=== PATIENT | female | born 1955 | race Caucasian/White ===

== ENCOUNTER 2024-05-15 18:42 | Emergency (ER) | payer MEDICARE, OTHER, SELFPAY ==
[2024-05-15 18:43] VITALS: BP 132/63; PULSE 79; RESP 16; TEMP 36.4; O2SAT 98; BMI 20.6
--- NOTE | 2024-05-15 19:17 | EDS_ITS ---
HPI HPI - Fall History of Present Illness Chief Complaint: Fall Informant: patient Occured/Mechanism Occurred: Today Mechanism/Context: Yes trip Usually ambulates: Without assistance Pain/Injury Pain Location: face (Nasal fracture.) Current Severity: Mild Maximum Severity: Mild Associated Symptoms Associated Symptoms: Negative for Parasthesias, Weakness, Loss of function, Inability to ambulate, Loss of consciousness or Amnesia Narrative Narrative: 68-year-old female recently moved to the area. Tripped on her steps there is only 2 steps. She fell when she fell she hit her nose that started bleeding from both sides. This just occurred. No LOC. No blood thinners. No neck pain. No severe headache. No vomiting. Denies other complaints. Prior similar symptoms: No Recent Illness/Hospitalization: No PFSH PFSH Medical History Hypertension Allergy/AdvReac Type Severity Reaction Status Date / Time No Known Allergies Allergy Verified 05/15/24 18:43 Social History Smoking Status: Never smoker ROS ROS ED ROS Narrative Denies recent illness. Constitutional Constitutional ED: Denies chills or fever(s) Eyes Eyes: Denies blurry vision ENT ENT ED: Denies ear pain Cardiovascular Cardiovascular: Denies chest pain Respiratory/Chest Respiratory/Chest: Denies cough or dyspnea Gastrointestinal Gastrointestinal: Denies abdominal pain Genitourinary Genitourinary ED: Denies dysuria or hematuria Musculoskeletal Musculoskeletal: Denies arthralgias or back pain Integumentary Denies abscess Neurologic Neurologic: Denies headache(s) Psychiatric Psychiatric: Denies anxiety or depression Endocrine Endocrinology: Denies polydipsia Hematologic/Lymphatic Hematologic/Lymphatic: Denies easy bleeding Allergic/Immunologic Allergic/Immunologic ED: Denies mouth swelling EXAM Physical Exam Narrative Exam Narrative: Well-appearing 68-year-old female. Vital signs stable afebrile. Accompanied by friend. H EENT exam pupils round reactive light. Scalp nontender no hematoma. 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 Blood in both naris. No septal hematoma. Nose is straight but swollen. Tender mid bridge. Superficial abrasion. Dentition intact. Jaw nontender. No malocclusion. Neck and trachea nontender. Back and spine nontender. No trauma or bruising. Lungs clear to auscultation bilaterally. Heart regular rhythm ra te about 80 no murmur. Chest wall ribs nontender. Abdomen soft nontender. Pelvic girdle intact. Moving all 4 extremities. Normal padded box sewer strength. Normal range of motion upper and lower extremities. Hips nontender. No shortening or rotation. Normal dorsi plantarflexion. Neurologically she is awake and alert. Answering questions following commands. GCS of 15. She knows where she is at, month and year. Acting appropriately. Const Vital Signs: 05/15/24 18:43 05/15/24 19:12 Temperature 97.5 F L Temperature Source Temporal Pulse Rate 79 Respiratory Rate 16 Respiratory Effort Normal Respiratory Depth Normal Respiratory Pattern Normal Blood Pressure 132/63 H Blood Pressure Mean 86 Pulse Ox 98 Positive well nourished and well developed; Negative for obese, cachectic, contractures or unkempt General Appearance ED: well developed and NAD; Negative for unkempt, cachectic or contractures Nutritional Appearance: Negative for cachectic or obese HEENT Reports normocephalic HEENT Narrative: Nasal fracture contusion. Mid bridge. Tender. Swollen no significant deformity. Blood in both naris. No active bleeding. No septal hematoma. trauma, contusion and tenderness; Negative for atraumatic Eyes PERRL and EOMs intact bilaterally General Eye ED: Negative for pale conjunctiva or scleral icterus Neck full ROM, no lymphadenopathy and supple General: Negative for tenderness Chest Wall inspection of chest normal and palpation of chest normal Resp normal respiratory effort, no retractions and clear to auscultation bilaterally Auscultation: Negative for rales, rhonchi, wheezes or diminished lung sounds Cardio regular rate, regular rhythm, S1 normal heart sound, S2 normal heart sound and no murmurs Rate: Negative for bradycardia or tachycardic Rhythm: Negative for abnormal rhythm Bruits: Negative for other GI non-tender, non-distended and no masses Inspection: Negative for abdominal distention Auscultation: normoactive bowel sounds Palpation: soft; Negative for guarding or rebound tenderness present Back/Spine no CVA tenderness General Back: Negative for CVA tenderness Cervical Spine: Negative for cervical spine tenderness Thoracic Spine / Upper Back: Negative for ROM limited or pain with ROM Lumbar Spine / Lower Back: Negative for lumbar spinal tenderness Neuro oriented x3, CN's II-XII intact bilaterally, moves all extremities and no focal motor deficits Roxanne Coma Scale: document GCS findings Spontaneous Obeys Commands Oriented 15 Sensorium / Orientation: alert, oriented to person, oriented to place and oriented to time; Negative for orientation impaired, confused or lethargic Motor Exam: strength 5/5 throughout Psych mental status grossly normal and thought process normal Appearance: Negative for unkempt Skin Lesions: no lesions Rashes: no rashes Trauma: abrasion; Negative for laceration MDM MDM MDM Narrative Medical decision making narrative: 68-year-old female fell at home. No LOC. Probably broke her nose. Does not need imaging of her head or facial bones. Discharged home with head injury instructions and nosebleed instructions. History & Record Review Discussion w/independent historian: Patient Additional record(s) reviewed:: No prior records Discharge Plan Triage Chief Complaint: Fall ED Provider: Elijah Damico Dx/Rx/DC Orders Clinical Impression: Fall, Closed fracture nasal bone Instructions: ED Head Injury (Adult), ED Nose Fracture, No X-Ray Primary Care Provider: NOT,DEFINED Referrals: Will Lopez MD [Med Staff - Allergist/Immunologist Physician] - As Needed NOT,DEFINED [Primary Care Provider] - Activity Restrictions/Additional Instructions: Ice to your nose and face. 20 to 30 minutes at a time 4-5 times a day for the next 3 days. Tylenol and ibuprofen for pain. If your nose starts bleeding hold direct pressure to the end your nose for 20 to 30 minutes. If unable to stop use cotton balls soaked with either Afrin or Tai- Synephrine nasal spray put them up to your nose that should get the bleeding to stop. If you cannot just return to the emergency department. If you develop a severe headache, intractable vomiting or not acting right return and we will get a CAT scan. You do not need one at this time. Print Language: Moz[place]ican Disposition Disposition: Home, Self Care
== END 2024-05-15 19:37 | disposition home or self-care (01) ==
PROVIDERS: Emergency Provider Emergency Medicine; Visit Provider Emergency Medicine
DX: S02.2XXA Fracture of nasal bones, initial encounter for closed fracture (principal); W10.9XXA Fall (on) (from) unspecified stairs and steps, initial encounter
CPT/HCPCS: 99282

== ENCOUNTER → 2025-04-07 | Outpatient (CLI) | payer MEDICARE, OTHER, SELFPAY ==
--- NOTE | 2025-04-07 15:24 | BI_ITS ---
EXAM: SCRN MAMM (CAD)W/SARA BILAT DATE: 04/07/2025 CLINICAL HISTORY: F, Age 69 y/o , ANNUAL SCREENING TECHNIQUE: Procedure Code: [id number] Modality: MG Procedure: SCRN MAMM (CAD)W/SARA BILAT COMPARISON: Prior exam(s) were compared FINDINGS: TISSUE DENSITY: The breasts are heterogeneously dense, which may obscure small masses. Bilateral Breast Mammographic Findings: Left breast: There is a spiculated mass with associated calcifications in the upper inner left breast posterior depth (cc frame 44 and MLO frame 45). Recommend additional imaging with diagnostic left breast mammogram spot compression views, full field true lateral view and targeted ultrasound scanning the upper inner left breast. There are grouped calcifications in the lower outer left breast posterior depth. Recommend additional imaging with diagnostic left breast mammogram magnification views. Right breast: No significant masses, calcifications or other abnormalities are identified. BI/SCRN MAMM (CAD)W/SARA BILAT IMPRESSION: Additional imaging is recommended of the left breast as described above. No mammographic evidence of malignancy in the right breast. OVERALL FINAL ASSESSMENT BI-RADS 0: INCOMPLETE - NEED ADDITIONAL IMAGING EVALUATION. RECOMMENDATION: Additional Views obtained/call backs Additional Recommendation none A letter with findings and recommendations will be mailed to the patient. Reading Location: [id number]
--- NOTE | 2025-04-07 15:25 | BD_ITS ---
PROCEDURE: DEXA BONE DENSITY STUDY 04/07/2025 REASON FOR EXAM: F, age 69 y/o . Postmenopausal. TECHNIQUE: Procedure Code: BDDBD Modality: DX Procedure: DEXA BONE DENSITY STUDY COMPARISON: None FINDINGS: BMD and T-SCORES Lumbar spine: 0.998 g/cm2, T-score -0.4 Levels: L1 through L4 Left femoral neck: 0.610 g/cm2, T-score -2.2 Femoral neck comparison data not recommended for monitoring change. Left total hip: 0.620 g/cm2, T-score -2.6 The World Health Organization has defined the following categories based on bone density: Normal bone density: T-score equal to or greater than -1.0 Osteopenia: T-score between -1.0 and -2.5 Osteoporosis: T-score equal to or less than -2.5 FRAX (or Comparable) Fracture Risk Assessment: 10 Year Probability of Fracture: Major Osteoporotic Fracture: 18% Hip Fracture: 4.2% (Note: FRAX is not to be reported in setting of normal range bone density, osteoporosis on DEXA, known history of osteoporosis, prior osteoporotic hip or vertebral fracture, or for any patient undergoing pharmacological treatment for bone loss.) The National Osteoporosis Foundation (NOF) recommends pharmacological treatment for patients with a FRAX 10-year risk of 3% or higher for a hip fracture, or 20% or higher for a major osteoporotic fracture, to prevent osteoporosis and reduce fracture risk. The patient does meet the pharmacological treatment recommendations for prevention of osteoporosis. BD/Dexa Bone Density Study IMPRESSION: OSTEOPOROSIS. Recommend follow-up as clinically warranted. Reading Location: [place] [id number]
--- OUTSIDE RECORDS SUMMARY | 2025-04-07 15:44 | XMS RPT_ITS | CCD ---
Author Organization [facility] Care Team Providers Care Wire Rigger Name Role Phone Lavern Malcolm Unavailable PROVIDER, UNKNOWN Referring Unavailable PROVIDER, UNKNOWN Referring Unavailable Elijah Damico Attending Unavailable Care Physician, No Primary Primary Care Unava ilable EROSSY, MARILY Referring Unavailable EROSSY, MARILY Referring Unavailable EROSSY, MARILY Attending Unavailable FRANK, GREGG Referring Unavailable EROSSY, MARILY Attending Unavailable EROSSY, MARILY Attending Unavailable FRANK, GREGG Referring Unavailable Medications Current Medications Medication Drug Class(es) Dates Sig (Normalized) Sig (Original) atorvastatin 20 mg oral tablet (11 sources) HMG-CoA Reductase Inhibitor Start: 03-23-2023 take 1 tablet by mouth once daily atorvastatin (LIPITOR) 20 mg tablet Take 1 tablet by mouth once daily. 03/23/2023 Active 24 hr buPROPion hydrochloride 150 mg extended release oral tablet (11 sources) Aminoketone take 1 tablet by mouth once daily buPROPion XL (WELLBUTRIN XL) 150 mg 24 hr tablet Take 150 mg by mouth once daily. Active cholecalciferol 0.125 mg oral tablet (11 sources) Vitamin D take 1 tablet by mouth once daily cholecalciferol (VITAMIN D3) 5,000 unit tab Take 1 tablet by mouth once daily. Active ibuprofen 200 mg oral tablet (11 sources) Nonsteroidal Anti-inflammatory Drug Start: 12-21-2022 ibuprofen (MOTRIN) 200 mg tablet Take 200 mg by mouth. 12/21/2022 Active Problems Active Problems Problem Classification Problem Date Documented Date Episodic/Chronic Fracture of neck of femur (hip) (3 sources) Stress fracture of shaft of right femur; Translations: [Stress fracture, right femur, initial encounter for fracture] Onset: 05-25-2024 05-13-2024 Episodic Osteoarthritis (2 sources) Osteoarthritis of right hip joint; Translations: [Unilateral primary osteoarthritis, right hip] Onset: 09-28-2024 09-27-2024 Chronic Other connective tissue disease (5 sources) History of repair of hip joint; Translations: [Presence of right artificial hip joint] 05-11-2024 Chronic Other connective tissue disease (1 source) Presence of right artificial hip joint; Translations: [Status post right hip replacement] Onset: 05-12-2024 Chronic Other non-traumatic joint disorders (4 sources) Hip pain; Translations: [Pain in right hip] 05-11-2024 Episodic Skull and face fractures (1 source) Fracture of nasal bones, initial encounter for closed fracture; Translations: [Fracture of nasal bones, initial encounter for closed fracture] Onset: 06-13-2024 Episodic Past or Other Problems Problem Classification Problem Date Documented Da te Episodic/Chronic Complication of device; implant or graft (2 sources) Mechanical loosening of internal right hip prosthetic joint, initial encounter; Translations: [Mechanical loosening of prosthetic joint] Onset: 06-01-2024 06-01-2024 Episodic Other non-traumatic joint disorders (1 source) Pain in right hip; Translations: [Pain of right hip] Onset: 05-11-2024 Episodic Unclassified (3 sources) History of repair of hip joint 09-28-2024 Results Test Name Value Interpretation Reference Range Facil meronsuellen Sandra 09-28-2024 MAGO Office Visit (JEAN CLAUDE ) LIZBET PADILLA ([id number]) 1955 F Date Time Provider Department 09/28/24 3:00 PM MARILY BE During your visit today, we recorded the following information about you: Marily Be MD 09/28/2024 3:46 PM Signed Established Patient Ortho Hip Consult Note ASSESSMENT AND PLAN: Impression: 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 Bone scan + at tip of stem and proximal metaphysis. Patient returns today for follow up. She is significantly improved after about 2 months of protected weight bearing and aquatic therapy. Now walking with no assist device at all but brought cane just for protection today. Main to midthigh here and there and over troch. Major improvement from last time I saw her. Reviewed XR's which show no major change in implants position. Benign exam today. Well healed incision. Mild TTP to troch and mid thigh. NVI distally. Reviewed XR with her and discussed returning to protected wb if this flares up again. Happy with her progress. She will see me again with any issues The patient has been ordered: No orders placed today. CONSULTS: Patient does not require consults for optimization at this time. There is no problem list on file for this patient. SUBJECTIVE CHIEF COMPLAINT: Hip Pain HPI: Lizbet Padilla is a 68 year old patient here for evaluation and management of Right hip pain. Patient has had progressive problems with the hip(s) constantly over the past 5 month(s) interfering with activities which include walking 2 blocks, gardening, rising from a sitting position, standing for prolonged periods of time, getting in and out of a car, climbing stairs, and safety-increased risk for fall. The problem began limiting activities 1-6 months ago. States she had a fall in her garage since her last visit on 05/11/24, and that she is using a cane as an assistive device. Currently the pain in the joint is rated at 5 out of 10 with moderate activity. The pain is constant and is located in the right outer aspect of the hip. The pain is described as aching, dull, and throbbing. Relieving factors include ambulatory device, rest, ice, over the counter medication, and repositioning. There is no specific incident that brought about this pain. Patient has no additional complaints. Total Joint Athroplasty - Risk Calculator PREVIOUS TREATMENTS: Medical: OTC NSAIDS for 3 Months or Greater (Ibuprofen) Physical Therapy: Use of Ambulatory Aid and Activities Modified Previous Surgery: RTHA (07/2023) Risk Factors for Total Joint Arthroplasty (TJA) Obesity normal High: BMI > 40 Moderate: BMI 30-40 Normal: BMI < 30 Diabetes normal High: A1C > 8 Moderate: A1C 7-8 Normal: A1C < 7 Smoking normal High: Current smoker Normal: Non smoker Anemia normal High: Hgb < 11.5 (women) N/A: Hgb >= 11.5 (women) Nutritional Status normal High: Alb<3.4, or prealb<15, or serum transferrin<200, or total lymphocyte count<1500 Normal: normal labs COPD normal High: dx of COPD Normal: no dx of COPD MRSA normal High: dx of MRSA or positive lab test Normal: no MRSA CKD normal High: eGFR<60 Moderate: eGFR 60-89 Normal: eGFR>90 Hx of DVT / PE normal High: dx of DVT / PE Normal: no dx of DVT / PE Narcotics Use normal High:NarxCare >=300 Moderate: 100-299 Normal: 0-99 KRIS normal High: dx of KRIS N/A: no dx of KRIS Coagulation normal High:PT Sec>13, or PT INR>1.3, or APTT>32.4, or Plt ct<150k Moderate: on anticoag but none of the above Normal: none Other Risk Factors None PHYSICAL EXAM There were no vitals taken for this visit. All other systems deferred. GENERAL: Appears healthy, well-nourished, no deformities. HABITUS: Normal GAIT: Ambulatory Aid: a cane HIP EXAM: Right: :Large anterior DA incision up to ASIS well healed TTP mid thigh ROM: Extension: Normal Flexion: 110 degrees Internal Rotation: 30 degrees External Rotation: 30 degrees Abduction: 40 degrees Adduction: 30 degrees Strength: Abduction 4/5 and Flexion 5/5 Palpation: TTP lateral troch Log roll: non-painful. Straight leg raise: + groin pain Neurovascular Status: Sensation Intact and Moves foot and ankle up AND down DATA: Diagnostic tests reviewed for today's visit: Right hip X-Ray: R hip no change in XR from April with standing film Bone Scan + at Tip of stem, proximal metaphysis also lights up. SIGNATURE: Marily Be MD PATIENT NAME: Lizbet Padilla DATE: June 01, 2024 TIME: 11:11 AM Marily Be MD 10/11/2024 2:47 PM Signed Addended by: MARILY BE on: 10/11/2024 02:47 PM Modules accepted: Level of Service Allergies As of Date: 09/28/2024 (No Known Allergies) Date Reviewed: 09/28/2024 Reviewed (more content not included)... Normal [facility] XR HIP 3V PELV+ AP/LAT RTon 09-28-2024 XR HIP 3V PELV+ AP/LAT RT * * *Final Report* * * DATE OF EXAM: Sep 28 2024 3:07PM AFR 5352 - XR HIP 3V PELV+ AP/LAT RT / PROCEDURE REASON: Status post right hip replacement * * * * Physician Interpretation * * * * PELVIS AND RIGHT HIP X-RAYS HISTORY: RIGHT HIP PAIN. Status post right hip replacement TECHNIQUE: AP pelvis and 2 view right hip (3 total films) COMPARISON: 06/01/2024 RESULT: Postsurgical changes right total hip arthroplasty. Satisfactory anatomic alignment. No findings of hardware failure or loosening. Left hip is unremarkable. Degenerative change noted L5-S1. 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 Status post right hip replacement TECHNIQUE: AP pelvis and 2 view right hip (3 total films) COMPARISON: 06/01/2024 RESULT: Postsurgical changes right total hip arthroplasty. Satisfactory anatomic alignment. No findings of hardware failure or loosening. Left hip is unremarkable. Degenerative change noted L5-S1. DIVISION OF RADIOLOGY Provider, [facility] Lamar figueredo [place] - 09/28/2024 * * *Final Report* * * DATE OF EXAM: Sep 28 2024 3:07PM AFR 5352 - XR HIP 3V PELV+ AP/LAT RT / PROCEDURE REASON: Status post right hip replacement * * * * Physician Interpretation * * * * PELVIS AND RIGHT HIP X-RAYS HISTORY: RIGHT HIP PAIN. Status post right hip replacement TECHNIQUE: AP pelvis and 2 view right hip (3 total films) COMPARISON: 06/01/2024 RESULT: Postsurgical changes right total hip arthroplasty. Satisfactory anatomic alignment. No findings of hardware failure or loosening. Left hip is unremarkable. Degenerative change noted L5-S1. IMPRESSION IMPRESSION: Right total hip arthroplasty without complication Supervisor [employer]: [facility] Transcribe Date/Time: Sep 28 2024 4:54P Dictated by : FRED MONREAL MD This examination was interpreted and the report reviewed and electronically signed by: FRED MONREAL MD on Sep 28 2024 4:54PM [facility] Radiology Study observation (narrative) [facility] XR Pelvis and Hip - right AP and Lateral frogOrdered By: Cc Provider on 09-28-2024 [facility] Tre 06-11-2024 CNPN Telephone (ORQ) LIZBET PADILLA ([id number]) 1955 F Date Time Provider Department 06/11/24 MARILY BE ORAbbey During your visit today, we recorded the following information about you: Connie Coughlin 06/11/2024 10:06 AM Signed HANDICAP RX PLACED IN OUT GOING MAIL. ALSO SENT MESSAGE WITH ATTACHED RX VIA MY CHART. Allergies As of Date: 06/11/2024 (No Known Allergies) Date Reviewed: 06/01/2024 Reviewed by: Franca Guan MA - Fully Assessed Reason for Visit: HANDICAP RX MAILED [Other] Prescriptions as of 06/11/2024 - ibuprofen (MOTRIN) 200 mg tablet Take 200 mg by mouth. - atorvastatin (LIPITOR) 20 mg tablet Take 1 tablet by mouth once daily. - cholecalciferol (VITAMIN D3) 5,000 unit tab Take 1 tablet by mouth once daily. - buPROPion XL (WELLBUTRIN XL) 150 mg 24 hr tablet Take 150 mg by mouth once daily. 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 Bone scan + at tip of stem and proximal metaphysis. Discussed her imaging and physical exam at length today. Went over XR and bone scan. She understands her issue and the difficult nature of treating it. Discussed that her underlying osteoporosis does contribute to this and getting on a good calcium and vitamin D regimen may help. She states that she has had bisphosphonate therapy in the past, with Prolia however she is not on this currently. Did advise her to discuss with her PCP or a metabolic bone specialist to see if his bisphosphonate therapy is a good option for her. She is only approximately 9 months out from her surgery at this point and any revision I would want to wait at least until around 2 years out to let the bone remodel to its fullest extent. Advised protecting her weightbearing with a walker or at least a cane is much as possible while we optimize her from an osteoporosis standpoint. The patient has been ordered: No orders placed today. CONSULTS: Patient does not require consults for optimization at this time. There is no problem list on file for this patient. SUBJECTIVE CHIEF COMPLAINT: Hip Pain HPI: Lizbet Padilla is a 68 year old patient here for evaluation and management of Right hip pain. Patient has had progressive problems with the hip(s) constantly over the past 5 month(s) interfering with activities which include walking 2 blocks, gardening, rising from a sitting position, standing for prolonged periods of time, getting in and out of a car, climbing stairs, and safety-increased risk for fall. The problem began limiting activities 1-6 months ago. States she had a fall in her garage since her last visit on 05/11/24, and that she is using a cane as an assistive device. Currently the pain in the joint is rated at 5 out of 10 with moderate activity. The pain is constant and is located in the right outer aspect of the hip. The pain is described as aching, dull, and throbbing. Relieving factors include ambulatory device, rest, ice, over the counter medication, and repositioning. There is no specific incident that brought about this pain. Patient has no additional complaints. Total Joint Athroplasty - Risk Calculator PREVIOUS TREATMENTS: Medical: OTC NSAIDS for 3 Months or Greater (Ibuprofen) Physical Therapy: Use of Ambulatory Aid and Activities Modified Previous Surgery: RTHA (07/2023) Risk Factors for Total Joint Arthroplasty (TJA) Obesity normal High: BMI > 40 Moderate: BMI 30-40 Normal: BMI < 30 Diabetes normal High: A1C > 8 Moderate: A1C 7-8 Normal: A1C < 7 Smoking normal High: Current smoker Normal: Non smoker Anemia normal High: Hgb < 11.5 (women) N/A: Hgb >= 11.5 (women) Nutritional Status normal High: Alb<3.4, or prealb<15, or serum transferrin<200, or total lymphocyte count<1500 Normal: normal labs COPD normal High: dx of COPD Normal: no dx of COPD MRSA normal High: dx of MRSA or positive lab test Normal: no MRSA CKD normal High: eGFR<60 Moderate: eGFR 60-89 Normal: eGFR>90 Hx of DVT / PE normal High: dx of DVT / PE Normal: no dx of DVT / PE Narcotics Use normal High:NarxCare >=300 Moderate: 100-299 Normal: 0-99 KRIS normal High: dx of KRIS N/A: no dx of KRIS Coagulation normal High:PT Sec>13, or PT INR>1.3, or APTT>32.4, or Plt ct<150k Moderate: on anticoag but none of the above Normal: none Other Risk Factors None PHYSICAL EXAM There were no vitals taken for this visit. All other systems deferred. GENERAL: Appears healthy, well-nourished, no deformities. HABITUS: Normal GAIT: Ambulatory Aid: a cane HIP EXAM: Right: :Large anterior DA incision up to ASIS well healed TTP mid thigh ROM: Extension: Normal Flexion: 110 degrees Internal Rotation: 30 degrees External Rotation: 30 degrees Abduction: 40 degrees Adduction: 30 degrees Strength: Abduction 4/5 and Flexion 5/5 Palpation: TTP lateral troch Log roll: non-painful. Straight leg raise: + groin pain Neurovascular Status: Sensation Intact and Moves foot and ankle up AND down DATA: Diagnostic tests reviewed for today's visit: Right hip X-Ray: R hip no change in XR from April with standing film Bone Scan + at Tip of stem, proximal metaphysis also lights up. SIGNATURE: Marily Be MD PATIENT NAME: Lizbet Padilla DATE: June 01, 2024 MRN: [id number] (more content not included)... 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 Additional history provided by the performing technologist (if any): --> RIGHT HIP PAIN- LOOSENING PROSTHETIC TECHNIQUE: XR HIP 3V PELV+ AP/LAT RT COMPARISON: 05/11/2024 RESULT: Status post right total hip arthroplasty. Unchanged appearance. Small teardrop shaped region of endosteal scalloping along the lateral aspect of the proximal femoral shaft may be related to prior implant. There is also an empty screw track in the proximal femoral shaft. Relative bone deficiency of the greater trochanter and mild deformity of the lesser trochanter compatible with remote trauma. Left hip and SI joints are normal. Calcified uterine fibroids. No other significant abnormality. 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 [employer] Sanitation: [facility] Transcribe Date/Time: Jun 01 2024 10:35A Dictated by : ALEXUS DUMONT MD This examination was interpreted and the report reviewed and electronically signed by: ALEXUS DUMONT MD on Jun 01 2024 10:36AM EST [id number] Normal [facility] XR Pelvis and Hip - right AP and Lateral frogon 06-01-2024 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 [employer]ery Sanitation: [facility] Transcribe Date/Time: Jun 01 2024 10:35A Dictated by : ALEXUS DUMONT MD This examination was interpreted and the report reviewed and electronically signed by: ALEXUS DUMONT MD on Jun 01 2024 10:36AM EST DIVISION OF RADIOLOGY * * *Final Report* * * DATE OF EXAM: Jun 01 2024 10:29AM AFR 5352 - XR HIP 3V PELV+ AP/LAT RT / PROCEDURE REASON: 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 Additional history provided by the performing technologist (if any): --> RIGHT HIP PAIN- LOOSENING PROSTHETIC TECHNIQUE: XR HIP 3V PELV+ AP/LAT RT COMPARISON: 05/11/2024 RESULT: Status post right total hip arthroplasty. Unchanged appearance. Small teardrop shaped region of endosteal scalloping along the lateral aspect of the proximal femoral shaft may be related to prior implant. There is also an empty screw track in the proximal femoral shaft. Relative bone deficiency of the greater trochanter and mild deformity of the lesser trochanter compatible with remote trauma. Left hip and SI joints are normal. Calcified uterine fibroids. No other significant abnormality. 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 Additional history provided by the performing technologist (if any): --> RIGHT HIP PAIN- LOOSENING PROSTHETIC TECHNIQUE: XR HIP 3V PELV+ AP/LAT RT COMPARISON: 05/11/2024 RESULT: Status post right total hip arthroplasty. Unchanged appearance. Small teardrop shaped region of endosteal scalloping along the lateral aspect of the proximal femoral shaft may be related to prior implant. There is also an empty screw track in the proximal femoral shaft. Relative bone deficiency of the greater trochanter and mild deformity of the lesser trochanter compatible with remote trauma. Left hip and SI joints are normal. Calcified uterine fibroids. No other significant abnormality. IMPRESSION 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 [employer]: [facility] Transcribe Date/Time: Jun 01 2024 10:35A Dictated by : ALEXUS DUMONT MD This examination was interpreted and the report reviewed and electronically signed by: ALEXUS DUMONT MD on Jun 01 2024 10:36AM [facility] Radiology Study observation (narrative) [facility] XR Pelvis and Hip - right AP and Lateral frogOrdered By: [facility] Provider on 06-01-2024 [facility] NM BONE 3 PHASEon 05-25-2024 NM BONE 3 PHASE * * *Final Report* * * DATE OF EXAM: May 25 2024 3:54PM CHAU 0009 - NM BONE 3 PHASE / PROCEDURE REASON: M84.351A-Stress fracture of shaft of right femur, initial encounter * * * * Physician Interpretation * * * * THREE PHASE BONE SCAN CLINICAL HISTORY: Stress fracture of shaft of right femur, initial encounter. TECHNIQUE: 21.9 mCi 99mTc MDP IV. Blood flow, immediate blood pool and 3-4 hour delayed images were obtained with attention to the of the right hip. COMPARISON: None. CORRELATION: Hip radiographs dated 05/01/2024. RESULT: There is no evidence of hyperemia in the periprosthetic region of the proximal right femur, in the region of the trochanter and also possibly in the region of the distal tip of the stem of the right hip prosthesis. Delayed images shows abnormally increased uptake in the greater trochanter and lesser trochanter region of the proximal right femur and also in the region of the tip of the right hip prosthesis. Mildly increased periprosthetic uptake noted in the other portions of the prosthesis. IMPRESSION: Abnormal uptake in the periprosthetic region of the right hip prosthesis as described, likely related to loosening. [employer]: [facility] Transcribe Date/Time: May 25 2024 4:43P Dictated by : KAYLA JACKSON MD This examination was interpreted and the report reviewed and electronically signed by: KAYLA JACKSON MD on May 25 2024 5:04PM EST [id number] [facility] Bone 3 Phase Viewson 12-0 IMPRESSION: Abnormal uptake in the periprosthetic region of the right hip prosthesis as described, likely related to loosening. [facility] Transcribe Date/Time: May 25 2024 4:43P Dictated by : KAYLA JACKSON MD This examination was interpreted and the report reviewed and electronically signed by: KAYLA JACKSON MD on May 25 2024 5:04PM [facility] RADIOLOGY * * *Final Report* * * DATE OF EXAM: May 25 2024 3:54PM CHAU 0009 - AR BONE 3 PHASE / PROCEDURE REASON: M84.351A-Stress fracture of shaft of right femur, initial encounter * * * * Physician Interpretation * * * * THREE PHASE BONE SCAN CLINICAL HISTORY: Stress fracture of shaft of right femur, initial encounter. TECHNIQUE: 21.9 mCi 99mTc MDP IV. Blood flow, immediate blood pool and 3-4 hour delayed images were obtained with attention to the of the right hip. COMPARISON: None. CORRELATION: Hip radiographs dated 05/01/2024. RESULT: There is no evidence of hyperemia in the periprosthetic region of the proximal right femur, in the region of the trochanter and also possibly in the region of the distal tip of the stem of the right hip prosthesis. Delayed images shows abnormally increased uptake in the greater trochanter and lesser trochanter region of the proximal right femur and also in the region of the tip of the right hip prosthesis. Mildly increased periprosthetic uptake noted in the other portions of the prosthesis. [facility] Provider, Yamilka [facility] - 05/25/2024 * * *Final Report* * * DATE OF EXAM: May 25 2024 3:54PM CHAU 0009 - NM BONE 3 PHASE / PROCEDURE REASON: M84.351A-Stress fracture of shaft of right femur, initial encounter * * * * Physician Interpretation * * * * THREE PHASE BONE SCAN CLINICAL HISTORY: Stress fracture of shaft of right femur, initial encounter. TECHNIQUE: 21.9 mCi 99mTc MDP IV. Blood flow, immediate blood pool and 3-4 hour delayed images were obtained with attention to the of the right hip. COMPARISON: None. CORRELATION: Hip radiographs dated 05/01/2024. RESULT: There is no evidence of hyperemia in the periprosthetic region of the proximal right femur, in the region of the trochanter and also possibly in the region of the distal tip of the stem of the right hip prosthesis. Delayed images shows abnormally increased uptake in the greater trochanter and lesser trochanter region of the proximal right femur and also in the region of the tip of the right hip prosthesis. Mildly increased periprosthetic uptake noted in the other portions of the prosthesis. IMPRESSION IMPRESSION: Abnormal uptake in the periprosthetic region of the right hip prosthesis as described, likely related to loosening. [employer]: [employer] Transcribe Date/Time: May 25 2024 4:43P Dictated by : KAYLA JACKSON MD This examination was interpreted and the report reviewed and electronically signed by: KAYLA JACKSON MD on May 25 2024 5:04PM EST [facility] Radiology Study observation (narrative) [facility] Bone 3 Phase ViewsOrdered By: Ccf Provider on 05-25-2024 [facility] Emergency Department Summary on 05-15-2024 Emergency Department Summary [facility] Medical Records Department [address] [place] [id number] Emergency Department Summary 05/15/24 MR#: [id number] Acct: [id number] Name: LIZBET PADILLA Rep #: [id number] : 1955 68 From: Elijah Damico MD PCP: NOT,DEFINED Status:PRE ER Location: ED HPI HPI - Fall History of Present Illness Chief Complaint: Fall Informant: patient Occured/Mechanism Occurred: Today Mechanism/Context: Yes trip Usually ambulates: Without assistance Pain/Injury Pain Location: face (Nasal fracture.) Current Severity: Mild Maximum Severity: Mild Associated Symptoms Associated Symptoms: Negative for Parasthesias, Weakness, Loss of function, Inability to ambulate, Loss of consciousness or Amnesia Narrative Narrative: 68-year-old female recently moved to the area. Tripped on her steps there is only 2 steps. She fell when she fell she hit her nose that started bleeding from both sides. This just occurred. No LOC. No blood thinners. No neck pain. No severe headache. No vomiting. Denies other complaints. Prior similar symptoms: No Recent Illness/Hospitalization : No PFSH PFSH Medical History Hypertension Allergy/AdvReac Type Severity Reaction Status Date / Time No Known Allergies Allergy Verified 05/15/24 18:43 Social History Smoking Status: Never smoker ROS ROS ED ROS Narrative Denies recent illness. Constitutional Constitutional ED: Denies chills or fever(s) Eyes Eyes: Denies blurry vision ENT ENT ED: Denies ear pain Cardiovascular Cardiovascular: Denies chest pain Respiratory/Chest Respiratory/Chest: Denies cough or dyspnea Gastrointestinal Gastrointestinal: Denies abdominal pain Genitourinary Genitourinary ED: Denies dysuria or hematuria Musculoskeletal Musculoskeletal: Denies arthralgias or back pain Integumentary Denies abscess Neurologic Neurologic: Denies headache(s) Psychiatric Psychiatric: Denies anxiety or depression Endocrine Endocrinology: Denies polydipsia Hematologic/Lymphatic Hematologic/Lymphatic: Denies easy bleeding Allergic/Immunologic Allergic/Immunologic ED: Denies mouth swelling EXAM Physical Exam Narrative Exam Narrative: Well-appearing 68-year-old female. Vital signs stable afebrile. Accompanied by friend. H EENT exam pupils round reactive light. Scalp nontender no hematoma. 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 Blood in both naris. No septal hematoma. Nose is straight but swollen. Tender mid bridge. Superficial abrasion. Dentition intact. Jaw nontender. No malocclusion. Neck and trachea nontender. Back and spine nontender. No trauma or bruising. Lungs clear to auscultation bilaterally. Heart regular rhythm rate about 80 no murmur. Chest wall ribs nontender. Abdomen soft nontender. Pelvic girdle intact. Moving all 4 extremities. Normal pressurization mechanic strength. Normal range of motion upper and lower extremities. Hips nontender. No shortening or rotation. Normal dorsi plantarflexion. Neurologically she is awake and alert. Answering questions following commands. GCS of 15. She knows where she is at, month and year. Acting appropriately. Const Vital Signs: 05/15/24 18:43 05/15/24 19:12 Temperature 97.5 F L Temperature Source Temporal Pulse Rate 79 Respiratory Rate 16 Respiratory Effort Normal Respiratory Depth Normal Respiratory Pattern Normal Blood Pressure 132/63 H Blood Pressure Mean 86 Pulse Ox 98 Positive well nourished and well developed; Negative for obese, cachectic, contractures or unkempt General Appearance ED: well developed and NAD; Negative for unkempt, cachectic or contractures Nutritional Appearance: Negative for cachectic or obese HEENT Reports normocephalic HEENT Narrative: Nasal fracture contusion. Mid bridge. Tender. Swollen no significant deformity. Blood in both naris. No active bleeding. No septal hematoma. trauma, contusion and tenderness; Negative for atraumatic Eyes PERRL and EOMs intact bilaterally General Eye ED: Negative for pale conjunctiva or scleral icterus Neck full ROM, no lymphadenopathy and supple General: Negative for tenderness Chest Wall inspection of chest normal and palpation of chest normal Resp normal respiratory effort, no retractions and clear to auscultation bilaterally Auscultation: Negative for rales, rhonchi, wheezes or diminished lung sounds Cardio regular rate, regular rhythm, S1 normal heart sound, S2 normal heart sound and no murmurs Rate: Negative for bradycardia or tachycardic Rhythm: Negative for abnormal rhythm Bruits: Negative for other GI non-tender, non-distended and no masses Inspection: Negative for abdominal distention Auscultation: normoactive bowel so (more content not included)... Normal [facility] CBC W Auto Differential pane l (Bld)on 05-12-2024 Basophils (Bld) [#/Vol] 0.05 10*3/uL Normal <0.11 [facility] Comment on above: Order Comment: Speci men Type: BLOOD SPECIMEN Ordering Facility: [facility] Address: [address] [place] [address] Performed By: #### 5 7021-8, 4537-7 #### [facility] CLIA [id number] [address] [place] [address] [place] Basophils/100 WBC (Bld) 0.7 % Normal [facility] Comment on above: Order Comment: Speci men Type: BLOOD SPECIMEN Ordering Facility: [facility] Address: [address] [place] [address] Performed By: #### 5 7021-8, 4537-7 #### [facility] CLIA [id number] [address] [place] [address] [place] Differential cell count method Nom (Bld) Auto Normal [facility] Comment on above: Order Comment: Speci men Type: BLOOD SPECIMEN Ordering Facility: [facility] Address: [address] [place] [address] Performed By: #### 5 7021-8, 4536-7 #### [facility] CLIA [id number] [address] [place] [address] [place] Eosinophils (Bld) [#/Vol] 0.28 10*3/uL Normal <0.46 [facility] Comment on above: Order Comment: Speci men Type: BLOOD SPECIMEN Ordering Facility: [facility] Address: [address] [place] [address] Performed By: #### 5 7021-8, 4537-7 #### [facility] CLIA [id number] [address] [place] [address] [place] Eosinophils/100 WBC (Bld) 3.7 % Normal [facility] Comment on above: Order Comment: Speci men Type: BLOOD SPECIMEN Ordering Facility: [facility] Address: [address] [place] [address] Performed By: #### 5 7021-8, 4537-7 #### [facility] CLIA [id number] [address] [place] [address] [place] Erythrocyte distribution width (RBC) [Ratio] 12.1 % Normal 11.5-15.0 [facility] Comment on above: Order Comment: Speci men Type: BLOOD SPECIMEN Ordering Facility: [facility] Address: [address] [place] [address] Performed By: #### 5 7021-8, 4537-7 #### [facility] CLIA [id number] [address] [place] [address] [place] Hematocrit (Bld) [Volume fraction] 43.4 % Normal 36.0-46.0 [facility] Comment on above: Order Comment: Speci men Type: BLOOD SPECIMEN Ordering Facility: [facility] Address: [address] [place] [address] Performed By: #### 5 7021-8, 4537-7 #### [facility] CLIA [id number] [address] [place] [address] [place] Hemoglobin (Bld) [Mass/Vol] 14.4 g/dL Normal 11.5-15.5 [facility] Comment on above: Order Comment: Speci men Type: BLOOD SPECIMEN Ordering Facility: [facility] Address: [address] [place] [address] Performed By: #### 5 7021-8, 4537-7 #### [facility] CLIA [id number] [address] [place] [address] [place] Immature granulocytes (Bld) [#/Vol] 10*3/uL Normal <0.10 [facility] Comment on above: Order Comment: Speci men Type: BLOOD SPECIMEN Ordering Facility: [facility] Address: [address] [place] [address] Performed By: #### 5 7021-8, 4536-7 #### [facility] CLIA [id number] [address] [place] [address] [place] Immature granulocytes/100 WBC (Bld) 0.1 % Normal [facility] Comment on above: Order Comment: Speci men Type: BLOOD SPECIMEN Ordering Facility: [facility] Address: [address] [place] [address] Performed By: #### 5 7021-8, 7 #### [facility] CLIA [id number] [address] [place] [address] [place] Lymphocytes (Bld) [#/Vol] 3.13 10*3/uL Normal 1.00-4.00 [facility] Comment on above: Order Comment: Speci men Type: BLOOD SPECIMEN Ordering Facility: [facility] Address: [address] [place] [address] Performed By: #### 5 7021-8, 4536-7 #### [facility] CLIA [id number] [address] [place] [address] [place] Lymphocytes/100 WBC (Bld) 41.3 % Normal [facility] Comment on above: Order Comment: Speci men Type: BLOOD SPECIMEN Ordering Facility: [facility] Address: [address] [place] [address] Performed By: #### 5 7021-8, 4536-7 #### [facility] CLIA [id number] [address] [place] [address] [place] MCH (RBC) [Entitic mass] 31.7 pg Normal 26.0-34.0 [facility] Comment on above: Order Comment: Speci men Type: BLOOD SPECIMEN Ordering Facility: [facility] Address: [address] [place] [address] Performed By: #### 5 7021-8, 4536-7 #### [facility] CLIA [id number] [address] [place] [address] [place] MCHC (RBC) [Mass/Vol] 33.2 g/dL Normal 30.5-36.0 [facility] Comment on above: Order Comment: Speci men Type: BLOOD SPECIMEN Ordering Facility: [facility] Address: [address] [place] [address] Performed By: #### 5 7021-8, 4537-7 #### [facility] CLIA [id number] [address] [place] [address] [place] MCV (RBC) [Entitic vol] 95.6 fL Normal 80.0-100.0 [facility] Comment on above: Order Comment: Speci men Type: BLOOD SPECIMEN Ordering Facility: [facility] Address: [address] [place] [address] Performed By: #### 5 7021-8, 4537-7 #### [facility] CLIA [id number] [address] [place] [address] [place] Monocytes (Bld) [#/Vol] 0.75 10*3/uL Normal <0.87 [facility] Comment on above: Order Comment: Speci men Type: BLOOD SPECIMEN Ordering Facility: [facility] Address: [address] [place] [address] Performed By: #### 5 7021-8, 4537-7 #### [facility] CLIA [id number] [address] [place] [address] [place] Monocytes/100 WBC (Bld) 9.9 % Normal [facility] Comment on above: Order Comment: Speci men Type: BLOOD SPECIMEN Ordering Facility: [facility] Address: [address] [place] [address] Performed By: #### 5 7021-8, 4537-7 #### [facility] CLIA [id number] [address] [place] [address] [place] Neutrophils (Bld) [#/Vol] 3.36 10*3/uL Normal 1.45-7.50 [facility] Comment on above: Order Comment: Speci men Type: BLOOD SPECIMEN Ordering Facility: [facility] Address: [address] [place] [address] Performed By: #### 5 7021-8, 4537-7 #### [facility] CLIA [id number] [address] [place] [address] [place] Neutrophils/100 WBC (Bld) 44.3 % Normal [facility] Comment on above: Order Comment: Speci men Type: BLOOD SPECIMEN Ordering Facility: [facility] Address: [address] [place] [address] Performed By: #### 5 7021-8, 453-7 #### [facility] CLIA [id number] [address] [place] [address] [place] Nucleated RBC (Bld) [#/Vol] 10*3/uL Normal <0.01 [facility] Comment on above: Order Comment: Speci men Type: BLOOD SPECIMEN Ordering Facility: [facility] Address: [address] [place] [address] Performed By: #### 5 7021-8, 4537-7 #### [facility] CLIA [id number] [address] [place] [address] [place] Nucleated RBC/100 WBC (Bld) [Ratio] 0.0 /100 WBC Normal [facility] Comment on above: Order Comment: Speci men Type: BLOOD SPECIMEN Ordering Facility: [facility] Address: [address] [place] [address] Performed By: #### 5 7021-8, 4537-7 #### [facility] CLIA [id number] [address] [place] [address] [place] Platelet mean volume (Bld) [Entitic vol] 8.9 fL Low 9.0-12.7 [facility] Comment on above: Order Comment: Speci men Type: BLOOD SPECIMEN Ordering Facility: [facility] Address: [address] [place] [address] Performed By: #### 5 7021-8, 4537-7 #### [facility] CLIA [id number] [address] [place] [address] [place] Platelets (Bld) [#/Vol] 324 10*3/uL Normal 150-400 [facility] Comment on above: Order Comment: Speci men Type: BLOOD SPECIMEN Ordering Facility: [facility] Address: [address] [place] [address] Performed By: #### 5 7021-8, 4537-7 #### [facility] CLIA [id number] [address] [place] [address] [place] RBC (Bld) [#/Vol] 4.54 10*6/uL Normal 3.90-5.20 [facility] Comment on above: Order Comment: Speci men Type: BLOOD SPECIMEN Ordering Facility: [facility] Address: [address] [place] [address] Performed By: #### 5 7021-8, 4537-7 #### [facility] CLIA [id number] [address] [place] [address] [place] WBC (Bld) [#/Vol] 7.58 10*3/uL Normal 3.70-11.00 [facility] Comment on above: Order Comment: Speci men Type: BLOOD SPECIMEN Ordering Facility: [facility] Address: [address] [place] [address] Performed By: #### 5 7021-8, 4537-7 #### [facility] CLIA [id number] [address] [place] [address] [place] CRP SerPl-mCncon 05-12-2024 CRP [Mass/Vol] mg/L Normal <0.9 [facility] Comment on above: Order Comment: Speci men Type: BLOOD SPECIMEN Ordering Facility: [facility] Address: [address] [place] [address] Performed By: #### 1 988-5 #### [facility] CLIA [id number] [address] [place] [address] [place] ESR Westergren method (Bld) [Velocity]on 05-12-2024 ESR (Bld) [Velocity] 5 mm/h Normal 0-20 [facility] Comment on above: Order Comment: Speci men Type: BLOOD SPECIMEN Ordering Facility: [facility] Address: [address] [place] [address] Performed By: #### 5 7021-8, 4537-7 #### [facility] CLIA [id number] [address] [place] [address] [place] CNOVon 05-11-2024 CNOV Office Visit (ORTHMN ) LIZBET PADILLA ([id number]) 1955 F Date Time Provider Department 05/11/24 2:00 PM MARILY BE During your visit today, we recorded the following information about you: Weight Height 49.9 kg 1.6 m Marily Be MD 05/11/2024 2:44 PM Signed CONSULT ORTHOPAEDIC: HIP PRIMARY CARE PHYSICIAN: No primary care provider on file. REFERRING PROVIDER: No referring provider defined for this encounter. ASSESSMENT AND PLAN Impression: Right hip pain s/p R KISHAN after hardware removal from prior CMN Patient presents for evaluation regarding her right hip. She has unfortunately a complicated history with her right hip. She initially had a fall with a comminuted intertrochanteric femur fracture at some point 2021 treated with a cephalomedullary nail. 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 She apparently was revised with hardware removal and conversion to a total hip arthroplasty at some point in July of this year. She has had a slow protracted recovery since that time, ambulating with a walker and then she is now with a cane. Pain in the anterior aspect of her thigh, as well as laterally over her greater trochanter and down her iliotibial band. All of this care has happened in [place] so records are limited. She moved here recently to [place], [place]. Denies any wound healing or drainage issues after her surgeries. Her prior surgeon told her her IT band was very irritated and to do physical therapy. She states that she was doing well after hip replacement initially, and then started to have more pain about 4 to 5 months ago. No initial pain but after she walks more than 20 to 30 feet she has fatigue and pain in her thigh which seems to bother her the most. Will obtain x-rays today as the disc she brought with her is not working. As well as inflammatory markers. I have no imaging to review after her total hip replacement. Will follow her up after her imaging and labs are completed. Diagnoses: (Z96.641) Status post right hip replacement (primary encounter diagnosis) (Z98.890) S/P hardware removal (M25.551) Pain of right hip After discussion with Lizbet Padilla, continued non-operative management of XR, labs ESR/CRP, Op notes was chosen. The patient currently has had progressive symptoms. Progressive symptoms include: Pain impacting sleep or causing fatigue Pain worsened by weight bearing Pain effecting living situation Pain limiting ability to stay fit and healthy Unable to ambulate 2 blocks without significant pain and dysfunction. The patient has been ordered: Office Visit on 05/11/24 XR HIP GENERAL 3V PELV/AP/LAT RIGHT XR FEMUR GENERAL 2V AP/LAT RIGHT COMPLETE BLOOD COUNT AND DIFFERENTIAL SEDIMENTATION RATE, WESTERGREN C-REACTIVE PROTEIN ibuprofen (MOTRIN) 200 mg tablet atorvastatin (LIPITOR) 20 mg tablet cholecalciferol (VITAMIN D3) 5,000 unit tab buPROPion XL (WELLBUTRIN XL) 150 mg 24 hr tablet ESR CRP CONSULTS: Patient does not require consults for optimization at this time. Total Joint Athroplasty - Risk Calculator Risk Factors for Total Knee Arthroplasty (TKA) Major Risk Factors Obesity Unknown Risk High: BMI > 40 Moderate: BMI 30-40 Normal: BMI < 30 Diabetes normal High: A1C > 8 Moderate: A1C 7-8 Normal: A1C < 7 Hx of DVT / PE normal High: dx of DVT / PE Normal: no dx of DVT / PE Smoking normal High: Current smoker Normal: Non smoker Narcotics Use normal High:NarxCare >=300 Moderate: 100-299 Normal: 0-99 Depression Unknown Risk High: PHQ-9 >14 Moderate: PHQ-9 5-14 Normal: PHQ-9 < 5 Area Deprivation Index (MARTIN) normal High: MARTIN Score > 75 Moderate: MARTIN 50-75 Normal: MARTIN < 50 Obesity: height and/or weight are out of date (There is no height and/or weight reading in the past 365 days, so the below BMI readings may be inaccurate) BMI Readings from Last 3 Encounters: 05/11/24 : 19.49 kg/m? Area Deprivation Index (MARTIN) 05/11/2024 MARTIN Score National Score 35 Patient Health Questionnaire (PHQ-9) No data to display (0-4) minimal depression, (5-9) mild depression, (10-14) moderate depression, (15-19) moderately severe depression, (20-27) severe depression Bone Density Risk Screen Lizbet Padilla is at risk for bone loss and has not had a bone densitometry scan in the last 2 years (date of last scan: None on file). Recommend a bone densitometry scan and if indicated on the bone density results, a consult to a bone health specialist (Rheumatology, Endocrinology, or Women's Health) for bone assessment. Risk Factors: Additional Risk Factors Malnutrition: No Malnutrition Screening Tool (MST) score on file- please complete the MST screening tool (click here to open) and refresh the note. There is no problem list on file for this patient. SUBJECTIVE CHIEF COMPLAINT: Hip Pain (more content not included)... Normal [facility] XR HIP 3V PELV+ AP/LAT RTon 05-11-2024 XR HIP 3V PELV+ AP/LAT RT * * *Final Report* * * DATE OF EXAM: May 11 2024 2:55PM AOX [id number] - XR HIP 3V PELV+ AP/LAT RT / PROCEDURE REASON: multiple diagnoses * * * * Physician Interpretation * * * * HISTORY: Status post right hip replacement Pain of right hip . Right hip replacement in July at [facility], patient experiencing pain at mid femur TECHNIQUE: XR HIP 3V PELV+ AP/LAT RT COMPARISON: None RESULT: Postoperative changes of right total hip arthroplasty with long stem femoral component. Hardware in normal position without evidence of failure or loosening. No fractures. Deformity of the proximal femur including the greater and lesser trochanters probably sequela of remote surgery/trauma. Coarse calcifications in the pelvis compatible with calcified uterine fibroids. No other significant abnormality. IMPRESSION: Postoperative findings as described with intact hardware. Supervisor [employer]: [facility] Transcribe Date/Time: May 11 2024 3:48P Dictated by : KHANH MOSS MD This examination was interpreted and the report reviewed and electronically signed by: KHANH MOSS MD on May 11 2024 3:49PM EST [id number] Normal [facility] XR Pelvis and Hip - right AP and Lateral frogon 05-11-2024 IMPRESSION: Postoperative findings as described with intact hardware. Supervisor [employer]: [facility] Transcribe Date/Time: May 11 2024 3:48P Dictated by : KHANH MOSS MD This examination was interpreted and the report reviewed and electronically signed by: KHANH MOSS MD on May 11 2024 3:49PM EST DIVISION OF RADIOLOGY * * *Final Report* * * DATE OF EXAM: May 11 2024 2:55PM AOX [id number] - XR HIP 3V PELV+ AP/LAT RT / PROCEDURE REASON: multiple diagnoses * * * * Physician Interpretation * * * * HISTORY: Status post right hip replacement Pain of right hip . Right hip replacement in July [facility], patient experiencing pain at mid femur TECHNIQUE: XR HIP 3V PELV+ AP/LAT RT COMPARISON: None RESULT: Postoperative changes of right total hip arthroplasty with long stem femoral component. Hardware in normal position without evidence of failure or loosening. No fractures. Deformity of the proximal femur including the greater and lesser trochanters probably sequela of remote surgery/trauma. Coarse calcifications in the pelvis compatible with calcified uterine fibroids. No other significant abnormality. DIVISION OF RADIOLOGY Provider, Yamilka Popediego figueredo Gaurav - 05/11/2024 * * *Final Report* * * DATE OF EXAM: May 11 2024 2:55PM AOX [id number] - XR HIP 3V PELV+ AP/LAT RT / PROCEDURE REASON: multiple diagnoses * * * * Physician Interpretation * * * * HISTORY: Status post right hip replacement Pain of right hip . Right hip replacement in July at [facility]SH, patient experiencing pain at mid femur TECHNIQUE: XR HIP 3V PELV+ AP/LAT RT COMPARISON: None RESULT: Postoperative changes of right total hip arthroplasty with long stem femoral component. Hardware in normal position without evidence of failure or loosening. No fractures. Deformity of the proximal femur including the greater and lesser trochanters probably sequela of remote surgery/trauma. Coarse calcifications in the pelvis compatible with calcified uterine fibroids. No other significant abnormality. IMPRESSION IMPRESSION: Postoperative findings as described with intact hardware. [employer]: PSCB Transcribe Date/Time: May 11 2024 3:48P Dictated by : KHANH MOSS MD This examination was interpreted and the report reviewed and electronically signed by: KHANH MOSS MD on May 11 2024 3:49PM [facility] Radiology Study observation (narrative) [facility] XR Pelvis and Hip - right AP and Lateral frogOrdered By: Ccf Provider on 05-11-2024 [facility] Tre 05-10-2024 CNPN Telephone (ORTHMN) LIZBET PADILLA ([id number]) 1955 F Date Time Provider Department 05/10/24 GRECIA SNYDER During your visit today, we recorded the following information about you: Grecia Snyder RN 05/10/2024 12:18 PM Signed Called patient regarding upcoming appt tomorrow with Dr. Be. Her imaging in within 6 months and OP notes are on the media she's bringing in. Allergies As of Date: 05/10/2024 (Not on File) Date Reviewed: Never Reviewed Reason for Visit: Appointment [186] Problem List As Of Date: 05/10/2024 (None) Encounter Status:Closed by GRECIA SNYDER on 05/10/24 Normal [facility] Vital Signs Date Time Vital Sign Value Performing Clinician Faci lity 05-11-2024 13:43-0500 Body height 160 cm Marily Be MD Work Phone: [facility] 05-11-2024 13:43-0500 Body mass index (BMI) [Ratio] 19.49 kg/m2 Marily Be MD Work Phone: [facility] 05-11-2024 13:43-0500 Body weight 49.9 kg Marily Be MD Work Phone: [facility] Encounters Encounter Date Encounter Type Care Provider Facility Start: 09-28-2024 End: 09-28-2024 ambulatory MARILY BE Facility:[facility] Start: 09-28-2024 End: 09-28-2024 Home visit est pt low-mod severity 25 minutes Marily Be MD Work Phone: Orthopaedics Comment on above: Status post right hi p replacement (Primary Dx); Primary osteoarthritis of right hip Start: 09-28-2024 End: 09-28-2024 Subsequent hospital visit by physician [facility] Work Phone: Radiology Comment on above: Status post right hi p replacement [Z96.641] Start: 06-11-2024 End: 06-11-2024 Telephone encounter Marily Be MD Work Phone: [facility] [place] Comment on above: HANDICAP [employer] MAILED Start: 06-08-2024 End: 06-10-2024 ambulatory Marily Be MD Work Phone: Orthopaedics Start: 06-08-2024 End: 06-10-2024 Patient encounter procedure Marily Be MD Work Phone: Orthopaedics Comment on above: Lizbet Padilla 09/21 B Start: 06-01-2024 End: 06-01-2024 Office outpatient visit 40 minutes Marily Be MD Work Phone: Orthopaedics Comment on above: Status post right hi p replacement (Primary Dx); Pain of right hip Start: 06-01-2024 End: 06-01-2024 ambulatory MARILY BE Facility:[facility] Start: 06-01-2024 End: 06-01-2024 Subsequent hospital visit by physician Xr Orth[facility] Re[facility] Work Phone: Radiology Comment on above: 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] Start: 05-25-2024 ambulatory UNKNOWN PROVIDER Facili ty:[facility] Start: 05-25-2024 End: 05-25-2024 Subsequent hospital visit by physician [facility] 1 Work Phone: Molecular Imaging Comment on above: Stress fracture of s haft of right femur, initial encounter [M84.351A] Start: 05-25-2024 ambulatory UNKNOWN PROVIDER Facili ty:[facility] Start: 05-25-2024 End: 05-25-2024 Subsequent hospital visit by physician [facility] 1 Work Phone: Molecular Imaging Comment on above: Stress fracture of s haft of right femur, initial encounter [M84.351A] Start: 05-15-2024 End: 05-15-2024 Emergency department patient visit Elijah Damico Facility:[facility] Start: 05-13-2024 End: 05-13-2024 Orders Only Marily Be MD Work Phone: Orthopaedics Comment on above: Stress fracture of s haft of right femur, initial encounter (Primary Dx) Start: 05-12-2024 End: 05-12-2024 ambulatory MARILY BE Facility:[facility] Start: 05-11-2024 End: 05-11-2024 Subsequent hospital visit by physician [facility] Radiology Comment on above: Status post right hi p replacement [Z96.641] Start: 05-11-2024 End: 05-11-2024 ambulatory MARILY BE Facility:[facility] Start: 05-11-2024 End: 05-11-2024 Office outpatient visit 40 minutes Marily Be MD Work Phone: Orthopaedics Comment on above: Status post right hi p replacement (Primary Dx); S/P hardware removal; Pain of right hip Start: 05-10-2024 End: 05-10-2024 Telephone encounter Grecia Snyder RN Orthopaedics Comment on above: Appointment Procedures Date Procedure Procedure Detail Performing Clinician Start: 09-28-2024 Radex hip unilateral with pelvis 2-3 views Greggdiego Palmert PA-C Work Phone: Start: 06-01-2024 Radex hip unilateral with pelvis 2-3 views Greggdiego Willard PA-C Work Phone: Start: 05-25-2024 Bone &/joint imaging 3 phase study Marily Be MD Work Phone: Start: 05-11-2024 Radex hip unilateral with pelvis 2-3 views Marily Be MD Work Phone: Start: 01-26-2024 Lipid 1996 panel - Serum or Plasma Marily Be MD Work Phone: H/O: surgery S/P hardware removal Marily Be MD Work Phone: Plan of Treatment Date Care Activity Detail Author Start: 01-25-2029 Lipid panel Lipid Screening [facility] Start: 2028 RSV Vaccine (1 - 1-d ose 75+ series) RSV Vaccine (1 - 1-dose 75+ series) [facility] Start: 01-25-2027 Diabetes Screening Diabetes Screenin g [facility] Start: 08-13-2024 End: 08-13-2024 Patient encounter procedure 08/13/2024 1:00 PM EST Office Visit Family Practice [address] [place] [address] [address] [place], [place] [id number] Abdi Mclean MD [address] [place] [address] [place] [address] establishing a primary care doctor Family Practice Comment on above: establishing a prima ry care doctor Start: 07-20-2024 End: 07-20-2024 Patient encounter procedure 07/20/2024 1:00 PM EST Office Visit Family Practice [address] [place], [place] [id number] Abdi Mclean MD [address] [place] [address] establishing a primary care doctor Family Practice Comment on above: establishing a prima ry care doctor Start: 06-23-2024 Advance Directive Discussion Advance Directive Discussion [facility] Start: 05-12-2024 End: 05-12-2024 ambulatory 05/12/2024 2:45 PM EST Results Only [facility] [address] [place] [address] [facility] Start: 05-11-2024 End: 08-10-2024 C reactive protein [Mass/volume] in Serum or Plasma C-REACTIVE PROTEIN Lab Routine Status post right hip replacement Expected: 05/11/2024, Expires: 08/10/2024 [facility] Comment on above: Expected: 05/11/2024 , Expires: 08/10/2024 Start: 05-11-2024 End: 08-10-2024 CBC W Auto Differential panel - Blood COMPLETE BLOOD COUNT AND DIFFERENTIAL Lab Routine Status post right hip replacement Expected: 05/11/2024, Expires: 08/10/2024 [facility] Comment on above: Expected: 05/11/2024 , Expires: 08/10/2024 Start: 05-11-2024 End: 08-10-2024 Erythrocyte sedimentation rate SEDIMENTATION RATE, WESTERGREN Lab Routine Status post right hip replacement Expected: 05/11/2024, Expires: 08/10/2024 [facility] Comment on above: Expected: 05/11/2024 , Expires: 08/10/2024 Start: 05-11-2024 End: 05-11-2024 Patient encounter procedure 05/11/2024 2:00 PM EST Office Visit Orthopaedics [address] [id number] [place] [address] [address] [place], [place] [id number] Unconfirmed reason for level 7 pain, 6 months after total hip replacement, femur hardware replacement and bone (22mm) replacement, possible band issue. (Pt will hand carry imaging to appt) Orthopaedics Comment on above: Unconfirmed reason f or level 7 pain, 6 months after total hip replacement, femur hardware replacement and bone (22mm) replacement, possible band issue. (Pt will hand carry imaging to appt) Start: 02-22-2024 Covid-19 Vaccine () Covid-19 Vaccine () [facility] Start: 02-22-2024 Covid-19 Vaccine () Covid-19 Vaccine () [facility] Start: 02-22-2024 Influenza vaccination Influenza Vacc ine (#1) [facility] Start: 06-23-2023 Advance Directive Discussion Advance Directive Discussion [facility] Start: 03-17-2020 Pneumococcal Vaccine : 50+ (2 of 2 - PCV) Pneumococcal Vaccine: 50+ (2 of 2 - PCV) [facility] Start: 03-17-2020 Pneumococcal Vaccine : 65+ (2 of 2 - PCV) Pneumococcal Vaccine: 65+ (2 of 2 - PCV) [facility] Start: 2018 Pneumococcal Vaccine : 65+ (1 of 1 - PCV) Pneumococcal Vaccine: 65+ (1 of 1 - PCV) [facility] Start: 2018 Screening for osteoporosis Bone Density Screening [facility] Start: 10-07-2003 Shingrix Vaccine (1 of 2) Shingrix Vaccine (1 of 2) [facility] Start: 1998 Diabetes Screening Diabetes Screenin g [facility] Start: 1998 Lipid panel Lipid Screening [facility] Start: 1998 Screening for malign ant neoplasm of colon [facility] Start: 1993 Screening for malign ant neoplasm of breast Mammogram Screening [facility] Start: 1972 Urine microalbumin profile DTaP,Tdap,Td Vaccine (1 - Tdap) [facility] Start: 10-07-1971 Anxiety Screening Anxiety Screening [facility] Start: 10-07-1971 Depression Screening Depression Scre ening [facility] Start: 10-07-1971 Hepatitis C screening Hepatitis C Sc reening [facility] End: 06-12-2025 NM Bone 3 Phase Views NM BONE 3 PHASE Radiology Routine Stress fracture of shaft of right femur, initial encounter 1 Occurrences starting 05/13/2024 until 06/12/2025 [facility] Work Phone: Comment on above: 1 Occurrences starti ng 05/13/2024 until 06/12/2025 End: 06-10-2025 XR Femur - right AP and Lateral XR FEMUR GENERAL 2V AP/LAT RIGHT Radiology Routine Status post right hip replacement S/P hardware removal 1 Occurrences starting 05/11/2024 until 06/10/2025 [facility] Work Phone: Comment on above: 1 Occurrences starti ng 05/11/2024 until 06/10/2025 Immunizations Immunization Date Immunization Notes Care Provider Fa cility 03-15-2019 influenza virus vacc ine, unspecified formulation Marily Be MD Work Phone: [facility] Payers Date Payer Category Payer Self-pay 2018 Private Health Insurance [facility] [employer] [id number] 2018 Unknown [employer]MENT [id number] 2018-Present [phone] [address] [place] [address] Indemnity [id number] 2018 Unknown [id number] 2018 Medicare [id number] 2018 Medicare [id number] Unknown [id number] Social History Date Type Detail Facility Tobacco smoking stat [facility] Tobacco smoking consumption unknown [facility] Start: 1955 Sex assigned at Not on file [facility] Start: 05-11-2024 End: 05-25-2024 Gender identity Not on file [facility] Start: 05-11-2024 Tobacco smoking stat [facility] Ex-smoker [facility] Start: 10-22-1967 End: 07-02-2023 History of tobacco use Current smoker [facility] Start: 10-22-1967 End: 07-02-2023 History of tobacco use Cigarette Smoker [facility] Start: 05-11-2024 End: 05-25-2024 Cigarettes smoked current (pack per day) - Reported 0.3 [facility] Start: 05-11-2024 Tobacco use and exposure Smokeless tobacco non-user [facility] Start: 05-11-2024 Alcoholic beverage intake Current drinker of alcohol (finding) [facility] National Score (1-100), lower number is lower risk 35 [facility] Start: 1955 Sex assigned at Female [facility] Start: 05-11-2024 Gender identity Identifies as female gender (finding) [facility] Start: 05-11-2024 Sexual orientation Heterosexual (fin ding) [facility] NEGATED: Highlighted rowStart: NINF History of tobacco use Passive smoker [facility] Clinical Notes 05-10-2024 to 09-28-2024 Monique Alaniz, RT(R) - 09/28/2024 3:00 PM Marily Sloan MD - 09/28/2024 2:52 PM EDTTelephone Encounter - Connie Coughlin - 06/11/2024 10:05 AM Marily Suarez MD - 06/01/2024 11:11 AM EST Note Date & Type Note Facility 09-28-2024 History of Presen t illness Narrative Radiology Service Progress Note PATIENT NAME: Lizbet Padilla DATE OF SERVICE: September 28, 2024 TIME: 2:57 PM PATIENT IDENTITY VERIFICATION COMPLETED USING TWO (2) IDENTIFIERS: Name and Date of confirmed by patient verbally. FALL SCREENING: Has the patient had 2 falls in the last year or 1 fall with injury or currently using an Ambulatory Assistive Device (Walker, Cane, Wheelchair, Crutches, etc.)? No PATIENT GENDER DATA: Assigned female at . status: : No status: NO. PATIENT RELEVANT IMPLANT DATA REVIEWED: Not Applicable PATIENT PRESENTS WITH AN IMPLANTABLE OR ATTACHED LAWN MOWER REPAIRER: No RADIOLOGY DEPARTMENT: General X-ray: Exam(s) Completed: Pelvis X-Ray: Pelvis with Hip Right PERIPHERAL IV DATA: Not applicable SIGNED BY: RT Femi(R) September 28, 2024 2:57 PM documented in this encounter [facility] 09-28-2024 Note HNO ID: [id number] Author: MONIQUE ALANIZ RT(Carlos A) Service: Radiology Author Type: Technologist Type: Progress Notes Filed: 09/28/2024 15:00 Note Text: Radiology Service Progress Note PATIENT NAME: Lizbet Padilla DATE OF SERVICE: September 28, 2024 TIME: 2:57 PM PATIENT IDENTITY VERIFICATION COMPLETED USING TWO (2) IDENTIFIERS: Name and Date of confirmed by patient verbally. FALL SCREENING: Has the patient had 2 falls in the last year or 1 fall with injury or currently using an Ambulatory Assistive Device (Walker, Cane, Wheelchair, Crutches, etc.)? No PATIENT GENDER DATA: Assigned female at . status: : No status: NO. PATIENT RELEVANT IMPLANT DATA REVIEWED: Not Applicable PATIENT PRESENTS WITH AN IMPLANTABLE OR ATTACHED LAWN MOWER REPAIRER: No RADIOLOGY DEPARTMENT: General X-ray: Exam(s) Completed: Pelvis X-Ray: Pelvis with Hip Right PERIPHERAL IV DATA: Not applicable SIGNED BY: RT Femi(R) September 28, 2024 2:57 PM [facility] 09-28-2024 Note HNO ID: [id number] Author: MARILY BE MD Service: ? 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 Bone scan + at tip of stem and proximal metaphysis. Patient returns today for follow up. She is significantly improved after about 2 months of protected weight bearing and aquatic therapy. Now walking with no assist device at all but brought cane just for protection today. Main to midthigh here and there and over troch. Major improvement from last time I saw her. Reviewed XR's which show no major change in implants position. Benign exam today. Well healed incision. Mild TTP to troch and mid thigh. NVI distally. Reviewed XR with her and discussed returning to protected wb if this flares up again. Happy with her progress. She will see me again with any issues The patient has been ordered: No orders placed today. CONSULTS: Patient does not require consults for optimization at this time. There is no problem list on file for this patient. SUBJECTIVE CHIEF COMPLAINT: Hip Pain HPI: Lizbet Padilla is a 68 year old patient here for evaluation and management of Right hip pain. Patient has had progressive problems with the hip(s) constantly over the past 5 month(s) interfering with activities which include walking 2 blocks, gardening, rising from a sitting position, standing for prolonged periods of time, getting in and out of a car, climbing stairs, and safety-increased risk for fall. The problem began limiting activities 1-6 months ago. States she had a fall in her garage since her last visit on 05/11/24, and that she is using a cane as an assistive device. Currently the pain in the joint is rated at 5 out of 10 with moderate activity. The pain is constant and is located in the right outer aspect of the hip. The pain is described as aching, dull, and throbbing. Relieving factors include ambulatory device, rest, ice, over the counter medication, and repositioning. There is no specific incident that brought about this pain. Patient has no additional complaints. Total Joint Athroplasty - Risk Calculator PREVIOUS TREATMENTS: Medical: OTC NSAIDS for 3 Months or Greater (Ibuprofen) Physical Therapy: Use of Ambulatory Aid and Activities Modified Previous Surgery: RTHA (07/2023) Risk Factors for Total Joint Arthroplasty (TJA) Obesity normal High: BMI > 40 Moderate: BMI 30-40 Normal: BMI < 30 Diabetes normal High: A1C > 8 Moderate: A1C 7-8 Normal: A1C < 7 Smoking normal High: Current smoker Normal: Non smoker Anemia normal High: Hgb < 11.5 (women) N/A: Hgb >= 11.5 (women) Nutritional Status normal High: Alb<3.4, or prealb<15, or serum transferrin<200, or total lymphocyte count<1500 Normal: normal labs COPD normal High: dx of COPD Normal: no dx of COPD MRSA normal High: dx of MRSA or positive lab test Normal: no MRSA CKD normal High: eGFR<60 Moderate: eGFR 60-89 Normal: eGFR>90 Hx of DVT / PE normal High: dx of DVT / PE Normal: no dx of DVT / PE Narcotics Use normal High:NarxCare >=300 Moderate: 100-299 Normal: 0-99 KRIS normal High: dx of KRIS N/A: no dx of KRIS Coagulation normal High:PT Sec>13, or PT INR>1.3, or APTT>32.4, or Plt ct<150k Moderate: on anticoag but none of the above Normal: none Other Risk Factors None PHYSICAL EXAM There were no vitals taken for this visit. All other systems deferred. GENERAL: Appears healthy, well-nourished, no deformities. HABITUS: Normal GAIT: Ambulatory Aid: a cane HIP EXAM: Right: :Large anterior DA incision up to ASIS well healed TTP mid thigh ROM: Extension: Normal Flexion: 110 degrees Internal Rotation: 30 degrees External Rotation: 30 degrees Abduction: 40 degrees Adduction: 30 degrees Strength: Abduction 4/5 and Flexion 5/5 Palpation: TTP lateral troch Log roll: non-painful. Straight leg raise: + groin pain Neurovascular Status: Sensation Intact and Moves foot and ankle up AND down DATA: Diagnostic tests reviewed for today's visit: Right hip X-Ray: R hip no change in XR from April with standing film Bone Scan + at Tip of stem, proximal metaphysis also lights up. 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 Bone scan + at tip of stem and proximal metaphysis. Patient returns today for follow up. She is significantly improved after about 2 months of protected weight bearing and aquatic therapy. Now walking with no assist device at all but brought cane just for protection today. Main to midthigh here and there and over troch. Major improvement from last time I saw her. Reviewed XR's which show no major change in implants position. Benign exam today. Well healed incision. Mild TTP to troch and mid thigh. NVI distally. Reviewed XR with her and discussed returning to protected wb if this flares up again. Happy with her progress. She will see me again with any issues The patient has been ordered: No orders placed today. CONSULTS: Patient does not require consults for optimization at this time. There is no problem list on file for this patient. SUBJECTIVE CHIEF COMPLAINT: Hip Pain HPI: Lizbet Padilla is a 68 year old patient here for evaluation and management of Right hip pain. Patient has had progressive problems with the hip(s) constantly over the past 5 month(s) interfering with activities which include walking 2 blocks, gardening, rising from a sitting position, standing for prolonged periods of time, getting in and out of a car, climbing stairs, and safety-increased risk for fall. The problem began limiting activities 1-6 months ago. States she had a fall in her garage since her last visit on 05/11/24, and that she is using a cane as an assistive device. Currently the pain in the joint is rated at 5 out of 10 with moderate activity. The pain is constant and is located in the right outer aspect of the hip. The pain is described as aching, dull, and throbbing. Relieving factors include ambulatory device, rest, ice, over the counter medication, and repositioning. There is no specific incident that brought about this pain. Patient has no additional complaints. Total Joint Athroplasty - Risk Calculator PREVIOUS TREATMENTS: Medical: OTC NSAIDS for 3 Months or Greater (Ibuprofen) Physical Therapy: Use of Ambulatory Aid and Activities Modified Previous Surgery: RTHA (07/2023) Risk Factors for Total Joint Arthroplasty (TJA) Obesity normal High: BMI > 40 Moderate: BMI 30-40 Normal: BMI < 30 Diabetes normal High: A1C > 8 Moderate: A1C 7-8 Normal: A1C < 7 Smoking normal High: Current smoker Normal: Non smoker Anemia normal High: Hgb < 11.5 (women) N/A: Hgb >= 11.5 (women) Nutritional Status normal High: Alb<3.4, or prealb<15, or serum transferrin<200, or total lymphocyte count<1500 Normal: normal labs COPD normal High: dx of COPD Normal: no dx of COPD MRSA normal High: dx of MRSA or positive lab test Normal: no MRSA CKD normal High: eGFR<60 Moderate: eGFR 60-89 Normal: eGFR>90 Hx of DVT / PE normal High: dx of DVT / PE Normal: no dx of DVT / PE Narcotics Use normal High:NarxCare >=300 Moderate: 100-299 Normal: 0-99 KRIS normal High: dx of KRIS N/A: no dx of KRIS Coagulation normal High:PT Sec>13, or PT INR>1.3, or APTT>32.4, or Plt ct<150k Moderate: on anticoag but none of the above Normal: none Other Risk Factors None PHYSICAL EXAM There were no vitals taken for this visit. All other systems deferred. GENERAL: Appears healthy, well-nourished, no deformities. HABITUS: Normal GAIT: Ambulatory Aid: a cane HIP EXAM: Right: :Large anterior DA incision up to ASIS well healed TTP mid thigh ROM: Extension: Normal Flexion: 110 degrees Internal Rotation: 30 degrees External Rotation: 30 degrees Abduction: 40 degrees Adduction: 30 degrees Strength: Abduction 4/5 and Flexion 5/5 Palpation: TTP lateral troch Log roll: non-painful. Straight leg raise: + groin pain Neurovascular Status: Sensation Intact and Moves foot and ankle up & down DATA: Diagnostic tests reviewed for today's visit: Right hip X-Ray: R hip no change in XR from April with standing film Bone Scan + at Tip of stem, proximal metaphysis also lights up. SIGNATURE: Marily Be MD PATIENT NAME: Lizbet Padilla DATE: June 01, 2024 TIME: 11:11 AM documented in this encounter [facility] 06-11-2024 Telephone encounter Note HANDICAP RX PLACED IN OUT GOING MAIL. ALSO SENT MESSAGE WITH ATTACHED RX VIA MY CHART. [facility] 06-11-2024 Miscellaneous Notes HANDICAP RX PLACED IN OUT GOING MAIL. ALSO SENT MESSAGE WITH ATTACHED RX VIA MY CHART. documented in this encounter [facility] 06-10-[address] Be approved placard for Lizbet Padilla. RN instructed to sign order for Dr. Be. [facility] 06-10-[address] Be approved placard for Lizbet Padilla. RN instructed to sign order for Dr. Be. documented in this encounter [facility] 06-01-2024 Note HNO ID: [id number] Author: MARILY BE MD Service: ? 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 Bone scan + at tip of stem and proximal metaphysis. Discussed her imaging and physical exam at length today. Went over XR and bone scan. She understands her issue and the difficult nature of treating it. Discussed that her underlying osteoporosis does contribute to this and getting on a good calcium and vitamin D regimen may help. She states that she has had bisphosphonate therapy in the past, with Prolia however she is not on this currently. Did advise her to discuss with her PCP or a metabolic bone specialist to see if his bisphosphonate therapy is a good option for her. She is only approximately 9 months out from her surgery at this point and any revision I would want to wait at least until around 2 years out to let the bone remodel to its fullest extent. Advised protecting her weightbearing with a walker or at least a cane is much as possible while we optimize her from an osteoporosis standpoint. The patient has been ordered: No orders placed today. CONSULTS: Patient does not require consults for optimization at this time. There is no problem list on file for this patient. SUBJECTIVE CHIEF COMPLAINT: Hip Pain HPI: Lizbet Padilla is a 68 year old patient here for evaluation and management of Right hip pain. Patient has had progressive problems with the hip(s) constantly over the past 5 month(s) interfering with activities which include walking 2 blocks, gardening, rising from a sitting position, standing for prolonged periods of time, getting in and out of a car, climbing stairs, and safety-increased risk for fall. The problem began limiting activities 1-6 months ago. States she had a fall in her garage since her last visit on 05/11/24, and that she is using a cane as an assistive device. Currently the pain in the joint is rated at 5 out of 10 with moderate activity. The pain is constant and is located in the right outer aspect of the hip. The pain is described as aching, dull, and throbbing. Relieving factors include ambulatory device, rest, ice, over the counter medication, and repositioning. There is no specific incident that brought about this pain. Patient has no additional complaints. Total Joint Athroplasty - Risk Calculator PREVIOUS TREATMENTS: Medical: OTC NSAIDS for 3 Months or Greater (Ibuprofen) Physical Therapy: Use of Ambulatory Aid and Activities Modified Previous Surgery: RTHA (07/2023) Risk Factors for Total Joint Arthroplasty (TJA) Obesity normal High: BMI > 40 Moderate: BMI 30-40 Normal: BMI < 30 Diabetes normal High: A1C > 8 Moderate: A1C 7-8 Normal: A1C < 7 Smoking normal High: Current smoker Normal: Non smoker Anemia normal High: Hgb < 11.5 (women) N/A: Hgb >= 11.5 (women) Nutritional Status normal High: Alb<3.4, or prealb<15, or serum transferrin<200, or total lymphocyte count<1500 Normal: normal labs COPD normal High: dx of COPD Normal: no dx of COPD MRSA normal High: dx of MRSA or positive lab test Normal: no MRSA CKD normal High: eGFR<60 Moderate: eGFR 60-89 Normal: eGFR>90 Hx of DVT / PE normal High: dx of DVT / PE Normal: no dx of DVT / PE Narcotics Use normal High:NarxCare >=300 Moderate: 100-299 Normal: 0-99 KRIS normal High: dx of KRIS N/A: no dx of KRIS Coagulation normal High:PT Sec>13, or PT INR>1.3, or APTT>32.4, or Plt ct<150k Moderate: on anticoag but none of the above Normal: none Other Risk Factors None PHYSICAL EXAM There were no vitals taken for this visit. All other systems deferred. GENERAL: Appears healthy, well-nourished, no deformities. HABITUS: Normal GAIT: Ambulatory Aid: a cane HIP EXAM: Right: :Large anterior DA incision up to ASIS well healed TTP mid thigh ROM: Extension: Normal Flexion: 110 degrees Internal Rotation: 30 degrees External Rotation: 30 degrees Abduction: 40 degrees Adduction: 30 degrees Strength: Abduction 4/5 and Flexion 5/5 Palpation: TTP lateral troch Log roll: non-painful. Straight leg raise: + groin pain Neurovascular Status: Sensation Intact and Moves foot and ankle up AND down DATA: Diagnostic tests reviewed for today's visit: Right hip X-Ray: R hip no change in XR from April with standing film Bone Scan + at Tip of stem, proximal metaphysis also lights up. 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 Bone scan + at tip of stem and proximal metaphysis. Discussed her imaging and physical exam at length today. Went over XR and bone scan. She understands her issue and the difficult nature of treating it. Discussed that her underlying osteoporosis does contribute to this and getting on a good calcium and vitamin D regimen may help. She states that she has had bisphosphonate therapy in the past, with Prolia however she is not on this currently. Did advise her to discuss with her PCP or a metabolic bone specialist to see if his bisphosphonate therapy is a good option for her. She is only approximately 9 months out from her surgery at this point and any revision I would want to wait at least until around 2 years out to let the bone remodel to its fullest extent. Advised protecting her weightbearing with a walker or at least a cane is much as possible while we optimize her from an osteoporosis standpoint. The patient has been ordered: No orders placed today. CONSULTS: Patient does not require consults for optimization at this time. There is no problem list on file for this patient. SUBJECTIVE CHIEF COMPLAINT: Hip Pain HPI: Lizbet Padilla is a 68 year old patient here for evaluation and management of Right hip pain. Patient has had progressive problems with the hip(s) constantly over the past 5 month(s) interfering with activities which include walking 2 blocks, gardening, rising from a sitting position, standing for prolonged periods of time, getting in and out of a car, climbing stairs, and safety-increased risk for fall. The problem began limiting activities 1-6 months ago. States she had a fall in her garage since her last visit on 05/11/24, and that she is using a cane as an assistive device. Currently the pain in the joint is rated at 5 out of 10 with moderate activity. The pain is constant and is located in the right outer aspect of the hip. The pain is described as aching, dull, and throbbing. Relieving factors include ambulatory device, rest, ice, over the counter medication, and repositioning. There is no specific incident that brought about this pain. Patient has no additional complaints. Total Joint Athroplasty - Risk Calculator PREVIOUS TREATMENTS: Medical: OTC NSAIDS for 3 Months or Greater (Ibuprofen) Physical Therapy: Use of Ambulatory Aid and Activities Modified Previous Surgery: RTHA (07/2023) Risk Factors for Total Joint Arthroplasty (TJA) Obesity normal High: BMI > 40 Moderate: BMI 30-40 Normal: BMI < 30 Diabetes normal High: A1C > 8 Moderate: A1C 7-8 Normal: A1C < 7 Smoking normal High: Current smoker Normal: Non smoker Anemia normal High: Hgb < 11.5 (women) N/A: Hgb >= 11.5 (women) Nutritional Status normal High: Alb<3.4, or prealb<15, or serum transferrin<200, or total lymphocyte count<1500 Normal: normal labs COPD normal High: dx of COPD Normal: no dx of COPD MRSA normal High: dx of MRSA or positive lab test Normal: no MRSA CKD normal High: eGFR<60 Moderate: eGFR 60-89 Normal: eGFR>90 Hx of DVT / PE normal High: dx of DVT / PE Normal: no dx of DVT / PE Narcotics Use normal High:NarxCare >=300 Moderate: 100-299 Normal: 0-99 KRIS normal High: dx of KRIS N/A: no dx of KRIS Coagulation normal High:PT Sec>13, or PT INR>1.3, or APTT>32.4, or Plt ct<150k Moderate: on anticoag but none of the above Normal: none Other Risk Factors None PHYSICAL EXAM There were no vitals taken for this visit. All other systems deferred. GENERAL: Appears healthy, well-nourished, no deformities. HABITUS: Normal GAIT: Ambulatory Aid: a cane HIP EXAM: Right: :Large anterior DA incision up to ASIS well healed TTP mid thigh ROM: Extension: Normal Flexion: 110 degrees Internal Rotation: 30 degrees External Rotation: 30 degrees Abduction: 40 degrees Adduction: 30 degrees Strength: Abduction 4/5 and Flexion 5/5 Palpation: TTP lateral troch Log roll: non-painful. Straight leg raise: + groin pain Neurovascular Status: Sensation Intact and Moves foot and ankle up & down DATA: Diagnostic tests reviewed for today's visit: Right hip X-Ray: R hip no change in XR from April with standing film Bone Scan + at Tip of stem, proximal metaphysis also lights up. SIGNATURE: Marily Be MD PATIENT NAME: Lizbet Padilla DATE: June 01, 2024 TIME: 11:11 AM documented in this encounter [facility] 05-25-2024 History of Presen t illness Narrative RADIOLOGY SERVICE PROGRESS NOTE SERVICE DATE: 05/25/2024 SERVICE TIME: 12:21 PM PATIENT IDENTITY VERIFICATION COMPLETED USING TWO (2) STANDARD IDENTIFIERS: Name and Date of confirmed by patient verbally and Name and Date of confirmed by identification band FALL SCREENING: Has the patient had 2 falls in the last year or 1 fall with injury or currently using an Ambulatory Assistive Device (Walker, Cane, Wheelchair, Crutches, etc.)? Yes, Patient High Risk for Falls What interventions were put in place to prevent falls during this visit? Yellow "Falls Risk Wristband" Applied and Increased Observations by Caregivers PATIENT GENDER DATA: .female : No ALLERGIES: Reviewed and unchanged MEDICATIONS REVIEWED: Not applicable PATIENT RELEVANT IMPLANT DATA REVIEWED: Not Applicable PATIENT PRESENTS WITH AN IMPLANTABLE OR ATTACHED LAWN MOWER REPAIRER: No CREATININE: No results found for: "CREAT", "EGFROTH", EGFRAA P.O.C.T. RESULTS: N/A May 25, [address] PERFORMED: No IV SITE: Ambulatory: NM only - direct IV injection in the Right antecubital site POST EXAM PIV STATUS: Not applicable PROCEDURE TYPE: NM INJECT: bone flow. 21.9 mCi Tc99m MDP. No other medications given.. ADMINISTRATION TIME: 11:09 PATIENT DISCHARGED TO: Ambulatory patient, left NM department area. Is this a therapy: No A Diagnostic radioactive procedure has taken place, with no further precautions necessary other than routine body substance precautions. More information regarding radiation safety can be found using this link: [email or web address] df SIGNATURE: JEFFERSON Rod PATIENT NAME: Lizbet Padilla DATE: May 25, 2024 TIME: 12:21 PM PAGER/CONTACT #: documented in this encounter [facility] 05-25-2024 Note HNO ID: [id number] Author: MARILY MOSQUERA CT Service: Nuclear Medicine Author Type: Technologist Type: Progress Notes Filed: 05/25/2024 12:22 Note Text: RADIOLOGY SERVICE PROGRESS NOTE SERVICE DATE: 05/25/2024 SERVICE TIME: 12:21 PM PATIENT IDENTITY VERIFICATION COMPLETED USING TWO (2) STANDARD IDENTIFIERS: Name and Date of confirmed by patient verbally and Name and Date of confirmed by identification band FALL SCREENING: Has the patient had 2 falls in the last year or 1 fall with injury or currently using an Ambulatory Assistive Device (Walker, Cane, Wheelchair, Crutches, etc.)? Yes, Patient High Risk for Falls What interventions were put in place to prevent falls during this visit? Yellow "Falls Risk Wristband" Applied and Increased Observations by Caregivers PATIENT GENDER DATA: .female : No ALLERGIES: Reviewed and unchanged MEDICATIONS REVIEWED: Not applicable PATIENT RELEVANT IMPLANT DATA REVIEWED: Not Applicable PATIENT PRESENTS WITH AN IMPLANTABLE OR ATTACHED LAWN MOWER REPAIRER: No CREATININE: No results found for: "CREAT", "EGFROTH", EGFRAA P.O.C.T. RESULTS: N/A May 25, [address] PERFORMED: No IV SITE: Ambulatory: NM only - direct IV injection in the Right antecubital site POST EXAM PIV STATUS: Not applicable PROCEDURE TYPE: NM INJECT: bone flow. 21.9 mCi Tc99m MDP. No other medications given.. ADMINISTRATION TIME: 11:09 PATIENT DISCHARGED TO: Ambulatory patient, left NM department area. Is this a therapy: No A Diagnostic radioactive procedure has taken place, with no further precautions necessary other than routine body substance precautions. More information regarding radiation safety can be found using this link: [email or web address]%20Nuclear%20Medicin [email or web address] SIGNATURE: JEFFERSON Rod PATIENT NAME: Lizbet Padilla DATE: May 25, 2024 TIME: 12:21 PM PAGER/CONTACT #: [facility] 05-11-2024 History of Presen t illness Narrative Radiology Service Progress Note PATIENT NAME: Lizbet Padilla DATE OF SERVICE: May 11, 2024 TIME: 2:55 PM PATIENT IDENTITY VERIFICATION COMPLETED USING TWO (2) IDENTIFIERS: Name and Date of confirmed by patient verbally. FALL SCREENING: Has the patient had 2 falls in the last year or 1 fall with injury or currently using an Ambulatory Assistive Device (Walker, Cane, Wheelchair, Crutches, etc.)? No PATIENT GENDER DATA: Female. status: : No status: NO. PATIENT RELEVANT IMPLANT DATA REVIEWED: Not Applicable PATIENT PRESENTS WITH AN IMPLANTABLE OR ATTACHED LAWN MOWER REPAIRER: No RADIOLOGY DEPARTMENT: General X-ray: Exam(s) Completed: Pelvis X-Ray: Pelvis with Hip Right PERIPHERAL IV DATA: Not applicable SIGNED BY: RT Shaniqua(Carlos A) May 11, 2024 2:55 PM documented in this encounter [facility] 05-11-2024 Note HNO ID: [id number] Author: KIKE VOGEL RT(R) Service: ? Author Type: Technologist Type: Progress Notes Filed: 05/11/2024 14:55 Note Text: Radiology Service Progress Note PATIENT NAME: Lizbet Padilla DATE OF SERVICE: May 11, 2024 TIME: 2:55 PM PATIENT IDENTITY VERIFICATION COMPLETED USING TWO (2) IDENTIFIERS: Name and Date of confirmed by patient verbally. FALL SCREENING: Has the patient had 2 falls in the last year or 1 fall with injury or currently using an Ambulatory Assistive Device (Walker, Cane, Wheelchair, Crutches, etc.)? No PATIENT GENDER DATA: Female. status: : No status: NO. PATIENT RELEVANT IMPLANT DATA REVIEWED: Not Applicable PATIENT PRESENTS WITH AN IMPLANTABLE OR ATTACHED LAWN MOWER REPAIRER: No RADIOLOGY DEPARTMENT: General X-ray: Exam(s) Completed: Pelvis X-Ray: Pelvis with Hip Right PERIPHERAL IV DATA: Not applicable SIGNED BY: RT Shaniqua(R) May 11, 2024 2:55 PM [facility] 05-11-2024 Note HNO ID: [id number] Author: MARILY BE MD Service: ? Author Type: Physician Type: Progress Notes Filed: 05/11/2024 14:44 Note Text: CONSULT ORTHOPAEDIC: HIP PRIMARY CARE PHYSICIAN: No primary care provider on file. REFERRING PROVIDER: No referring provider defined for this encounter. ASSESSMENT AND PLAN Impression: Right hip pain s/p R KISHAN after hardware removal from prior CMN Patient presents for evaluation regarding her right hip. She has unfortunately a complicated history with her right hip. She initially had a fall with a comminuted intertrochanteric femur fracture at some point 2021 treated with a cephalomedullary nail. 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 She apparently was revised with hardware removal and conversion to a total hip arthroplasty at some point in July of this year. She has had a slow protracted recovery since that time, ambulating with a walker and then she is now with a cane. Pain in the anterior aspect of her thigh, as well as laterally over her greater trochanter and down her iliotibial band. All of this care has happened in [place] so records are limited. She moved here recently to [place], [place]. Denies any wound healing or drainage issues after her surgeries. Her prior surgeon told her her IT band was very irritated and to do physical therapy. She states that she was doing well after hip replacement initially, and then started to have more pain about 4 to 5 months ago. No initial pain but after she walks more than 20 to 30 feet she has fatigue and pain in her thigh which seems to bother her the most. Will obtain x-rays today as the disc she brought with her is not working. As well as inflammatory markers. I have no imaging to review after her total hip replacement. Will follow her up after her imaging and labs are completed. Diagnoses: (Z96.641) Status post right hip replacement (primary encounter diagnosis) (Z98.890) S/P hardware removal (M25.551) Pain of right hip After discussion with Lizbet Padilla, continued non-operative management of XR, labs ESR/CRP, Op notes was chosen. The patient currently has had progressive symptoms. Progressive symptoms include: Pain impacting sleep or causing fatigue Pain worsened by weight bearing Pain effecting living situation Pain limiting ability to stay fit and healthy Unable to ambulate 2 blocks without significant pain and dysfunction. The patient has been ordered: Office Visit on 05/11/24 XR HIP GENERAL 3V PELV/AP/LAT RIGHT XR FEMUR GENERAL 2V AP/LAT RIGHT COMPLETE BLOOD COUNT AND DIFFERENTIAL SEDIMENTATION RATE, WESTERGREN C-REACTIVE PROTEIN ibuprofen (MOTRIN) 200 mg tablet atorvastatin (LIPITOR) 20 mg tablet cholecalciferol (VITAMIN D3) 5,000 unit tab buPROPion XL (WELLBUTRIN XL) 150 mg 24 hr tablet ESR CRP CONSULTS: Patient does not require consults for optimization at this time. Total Joint Athroplasty - Risk Calculator Risk Factors for Total Knee Arthroplasty (TKA) Major Risk Factors Obesity Unknown Risk High: BMI > 40 Moderate: BMI 30-40 Normal: BMI < 30 Diabetes normal High: A1C > 8 Moderate: A1C 7-8 Normal: A1C < 7 Hx of DVT / PE normal High: dx of DVT / PE Normal: no dx of DVT / PE Smoking normal High: Current smoker Normal: Non smoker Narcotics Use normal High:NarxCare >=300 Moderate: 100-299 Normal: 0-99 Depression Unknown Risk High: PHQ-9 >14 Moderate: PHQ-9 5-14 Normal: PHQ-9 < 5 Area Deprivation Index (MARTIN) normal High: MARTIN Score > 75 Moderate: MARTIN 50-75 Normal: MARTIN < 50 Obesity: height and/or weight are out of date (There is no height and/or weight reading in the past 365 days, so the below BMI readings may be inaccurate) BMI Readings from Last 3 Encounters: 05/11/24 : 19.49 kg/m? Area Deprivation Index (MARTIN) 05/11/2024 MARTIN Score National Score 35 Patient Health Questionnaire (PHQ-9) No data to display (0-4) minimal depression, (5-9) mild depression, (10-14) moderate depression, (15-19) moderately severe depression, (20-27) severe depression Bone Density Risk Screen Lizbet Padilla is at risk for bone loss and has not had a bone densitometry scan in the last 2 years (date of last scan: None on file). Recommend a bone densitometry scan and if indicated on the bone density results, a consult to a bone health specialist (Rheumatology, Endocrinology, or Women's Health) for bone assessment. Risk Factors: Additional Risk Factors Malnutrition: No Malnutrition Screening Tool (MST) score on file- please complete the MST screening tool (click here to open) and refresh the note. There is no problem list on file for this patient. SUBJECTIVE CHIEF COMPLAINT: Hip Pain HPI: Lizbet Padilla is a 68 year old patient with the presenting complaint of New Patient and Pain of the Right Hip. Lizbet Padilla has had progressive problems with the hip(s) most of the day over the past 2.5year(s (more content not included)... [facility] 05-11-2024 History of Presen t illness Narrative Images from the original note were not included. CONSULT ORTHOPAEDIC: HIP PRIMARY CARE PHYSICIAN: No primary care provider on file. REFERRING PROVIDER: No referring provider defined for this encounter. ASSESSMENT & PLAN Impression: Right hip pain s/p R KISHAN after hardware removal from prior CMN Patient presents for evaluation regarding her right hip. She has unfortunately a complicated history with her right hip. She initially had a fall with a comminuted intertrochanteric femur fracture at some point 2021 treated with a cephalomedullary nail. 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 She apparently was revised with hardware removal and conversion to a total hip arthroplasty at some point in July of this year. She has had a slow protracted recovery since that time, ambulating with a walker and then she is now with a cane. Pain in the anterior aspect of her thigh, as well as laterally over her greater trochanter and down her iliotibial band. All of this care has happened in [place] so records are limited. She moved here recently to [place], [place]. Denies any wound healing or drainage issues after her surgeries. Her prior surgeon told her her IT band was very irritated and to do physical therapy. She states that she was doing well after hip replacement initially, and then started to have more pain about 4 to 5 months ago. No initial pain but after she walks more than 20 to 30 feet she has fatigue and pain in her thigh which seems to bother her the most. Will obtain x-rays today as the disc she brought with her is not working. As well as inflammatory markers. I have no imaging to review after her total hip replacement. Will follow her up after her imaging and labs are completed. Diagnoses: (Z96.641) Status post right hip replacement (primary encounter diagnosis) (Z98.890) S/P hardware removal (M25.551) Pain of right hip After discussion with Lizbet Padilla, continued non-operative management of XR, labs ESR/CRP, Op notes was chosen. The patient currently has had progressive symptoms. Progressive symptoms include: Pain impacting sleep or causing fatigue Pain worsened by weight bearing Pain effecting living situation Pain limiting ability to stay fit and healthy Unable to ambulate 2 blocks without significant pain and dysfunction. The patient has been ordered: Office Visit on 05/11/24 XR HIP GENERAL 3V PELV/AP/LAT RIGHT XR FEMUR GENERAL 2V AP/LAT RIGHT COMPLETE BLOOD COUNT AND DIFFERENTIAL SEDIMENTATION RATE, WESTERGREN C-REACTIVE PROTEIN ibuprofen (MOTRIN) 200 mg tablet atorvastatin (LIPITOR) 20 mg tablet cholecalciferol (VITAMIN D3) 5,000 unit tab buPROPion XL (WELLBUTRIN XL) 150 mg 24 hr tablet ESR CRP CONSULTS: Patient does not require consults for optimization at this time. Total Joint Athroplasty - Risk Calculator Risk Factors for Total Knee Arthroplasty (TKA) Major Risk Factors Obesity Unknown Risk High: BMI > 40 Moderate: BMI 30-40 Normal: BMI < 30 Diabetes normal High: A1C > 8 Moderate: A1C 7-8 Normal: A1C < 7 Hx of DVT / PE normal High: dx of DVT / PE Normal: no dx of DVT / PE Smoking normal High: Current smoker Normal: Non smoker Narcotics Use normal High:NarxCare >=300 Moderate: 100-299 Normal: 0-99 Depression Unknown Risk High: PHQ-9 >14 Moderate: PHQ-9 5-14 Normal: PHQ-9 < 5 Area Deprivation Index (MARTIN) normal High: MARTIN Score > 75 Moderate: MARTIN 50-75 Normal: MARTIN < 50 Obesity: height and/or weight are out of date (There is no height and/or weight reading in the past 365 days, so the below BMI readings may be inaccurate) BMI Readings from Last 3 Encounters: 05/11/24 : 19.49 kg/m Area Deprivation Index (MARTIN) 05/11/2024 MARTIN Score National Score 35 Patient Health Questionnaire (PHQ-9) No data to display (0-4) minimal depression, (5-9) mild depression, (10-14) moderate depression, (15-19) moderately severe depression, (20-27) severe depression Bone Density Risk Screen Lizbet Padilla is at risk for bone loss and has not had a bone densitometry scan in the last 2 years (date of last scan: None on file). Recommend a bone densitometry scan and if indicated on the bone density results, a consult to a bone health specialist (Rheumatology, Endocrinology, or Women's Health) for bone assessment. Risk Factors: Additional Risk Factors Malnutrition: No Malnutrition Screening Tool (MST) score on file- please complete the MST screening tool (click here to open) and refresh the note. There is no problem list on file for this patient. SUBJECTIVE CHIEF COMPLAINT: Hip Pain HPI: Lizbet Padilla is a 68 year old patient with the presenting complaint of New Patient and Pain of the Right Hip. Lizbet Padilla has had progressive problems with the hip(s) most of the day over the past 2.5year(s) interfering with activities which include walking 2 blocks, standing for prolonged periods of time, getting in and out of a car, climbing stairs, and safety-increased risk for fall. The problem began limiting activities 3+ years ago. She recently moved here from [facility], where she had her ORIF and RTHA. States that the pain is in several locations. Report it is in the groin, can radiate down her buttock, and ache/shoot down the right lateral side. She claims to have had 2 falls in the past year and uses an assistive device as needed. Lizbet reports a current pain level of 5 (At night the pain level goes up to 6-8) (Hip-Right). She describes the pain as Aching, Sharp, Shooting, Radiating, Throbbing, Burning, Pressure. The pain is Continuous, and has lasted for 5 Months. Interventions tried include Medication, Reposition, Relaxation, Cold, Heat, Exercise. FALL RISK: Lizbet is at risk for falls. She has had either 2 falls in the last year or at least 1 fall with injury and/or is currently using an ambulatory assitive device (walker, cane, wheelchair, crutches, etc.) The following interventions were put in place to prevent falls this visit: Placed "Falling Man Sign" on Door PROMIS Physical Function Score No data to display FUNCTIONAL STATUS: Walk indoors, such as around the house (1.75 METs) Do light work around the house, such as dusting or washing dishes (2.70 METs) Take care of self, that is eating, dressing, bathing, using the toilet (2.75 METs) PREVIOUS TREATMENTS: Medical: OTC NSAIDS for 3 Months or Greater (Ibuprofen), Steroid Injections Right Hip Physical Therapy: Use of Ambulatory Aid, Activities Modified, and PT Three Months or Greater 1-2 times per week Previous Surgery: Right Hip ORIF , RTHA REVIEW OF SYSTEMS: GENERAL: Denies fever, chills malaise and weight loss.. PAIN ASSESSMENT: See HPI. HEENT: No recent change in vision or hearing.. CARDIOVASCULAR: Denies chest pain, history of A-fib, valvular disease, hypertension, CHF or pacemaker/ICD.. RESPIRATORY: Denies SOB, sputum production, dyspnea, COPD and hemoptysis.. GI: Denies GI ulcers, inflammatory disease, ascites or liver disease.. : Denies change in frequency or urgency, kidney disease, and burning with urination.. MUSCULOSKELETAL: See HPI. SKIN: Denies rash or itching.. PSYCHOLOGICAL: Denies uncontrolled depression or anxiety.. NEURO: Denies CVA, seizures, headaches.. ENDOCRINE: Denies diabetes, thyroid disease.. HEMATOLOGY/LYMPHOLOGY: Denies cancer, bleeding or clotting disorders, anemia,and DVT's.. ALLERGIC/IMMUNOLOGICAL: Denies risks for infection, or recent MRSA infections. No data to display No past medical history on file. No past surgical history on file. No family history on file. Social History Tobacco Use Smoking status: Former Current packs/day: 0.00 Average packs/day: 0.3 packs/day for 6.7 years (1.7 ttl pk-yrs) Types: Cigarettes Start date: 10/1967 Quit date: 07/02/2023 Years since quittin.8 Passive exposure: Never Smokeless tobacco: Never Substance Use Topics Alcohol use: Yes Alcohol/week: 8.0 standard drinks of alcohol Types: 1 Glasses of wine, 7 Cans of beer per week Drug use: Never ALLERGIES: Patient has no known allergies. MEDICATIONS: ibuprofen (MOTRIN) 200 mg tablet Take 200 mg by mouth. atorvastatin (LIPITOR) 20 mg tablet Take 1 tablet by mouth once daily. cholecalciferol (VITAMIN D3) 5,000 unit tab Take 1 tablet by mouth once daily. buPROPion XL (WELLBUTRIN XL) 150 mg 24 hr tablet Take 150 mg by mouth once daily. OBJECTIVE PHYSICAL EXAM Ht 160 cm (5' 3") Wt 49.9 kg (110 lb) BMI 19.49 kg/m All other systems deferred. GENERAL: Appears healthy, well-nourished, no deformities. HABITUS: Normal GAIT: Ambulatory Aid: a cane HIP EXAM: Right: Ambulates around the exam room with a nonantalgic gait. She states ambulating more than 20 to 30 feet she does feel significant pain in her anterior thigh, also has pain laterally over her greater trochanter which radiates down the lateral aspect of her thigh and sometimes in her groin. Well-healed incisions, she has lateral incision poke holes from her prior nail placement. She has a large anterior based incision which runs over the TFL well high proximally over top of the ASIS over her iliac crest this is healed. She is somewhat tender palpation over this area. ROM: Extension: Normal Flexion: 110 degrees Internal Rotation: 30 degrees External Rotation: 30 degrees Abduction: 40 degrees Adduction: 30 degrees Strength: Abduction 4/5 and Flexion 5/5 Palpation: No tenderness Log roll: non-painful. Straight leg raise: +Some hip pain with this Neurovascular Status: Sensation Intact and Moves foot and ankle up & down DATA: Most recent hip imaging was completed on 12/02/2023 (XR HIP 2 VIEWS RT) . Most recent upper leg imaging was completed on 03/31/2024 (MRI UPPER LEG WO IVCON RIGHT) . Attached is imaging for the order. Diagnostic tests reviewed for today's visit: Right hip X-Ray: Unable to view disc brought with patient today. We have some printed images of prior xrays over the last 2 years which show an apparent comminuted intertrochanteric femur fracture sometime in 2021, followed by cephalomedullary nail placement. 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 That all the imaging we have today as the disc she brought is not working. The following conditions were addressed during the office visit today: na SIGNATURE: Marily Be MD PATIENT NAME: Lizbet Padilla DATE: May 11, 2024 TIME: 1:40 PM documented in this encounter [facility] 05-10-2024 Telephone encounter Note Called patient regarding upcoming appt tomorrow with Dr. Be. Her imaging in within 6 months and OP notes are on the media she's bringing in. [facility] 05-10-2024 Miscellaneous Notes Called patient regarding upcoming appt tomorrow with Dr. Be. Her imaging in within 6 months and OP notes are on the media she's bringing in. documented in this encounter [facility] Evaluation note Diagnosis Status post right hip replacement- Primary Hip joint replacement by other means S/P hardware removal Other postprocedural status Pain of right hip Status post right hip replacement Hip joint replacement by other means Pain of right hip [facility] Diagnosis Status post right hip replacement Hip joint replacement by other means Pain of right hip [facility] Diagnosis Stress fracture of shaft of right femur, initial encounter- Primary [facility] Diagnosis Stress fracture of shaft of right femur, [facility] Status post right hip replacement- Primary Hip joint replacement by other means Pain of right hip [facility] Diagnosis 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) [facility] Diagnosis Pain in right hip- Primary Pain in joint, pelvic region and thigh [facility] Diagnosis Status post right hip replacement- Primary Hip joint replacement by other means Primary osteoarthritis of right hip Primary localized osteoarthrosis, pelvic region and thigh Status post right hip replacement Hip joint replacement by other means [facility] Diagnosis Status post right hip replacement Hip joint replacement by other means [facility] Diagnostic Procedure Only (Routine) - New Request Specialty Diagnoses / Procedures Referred By Contac t Referred To Contact XR IMAGING Diagnoses Status post right hip replacement S/P hardware removal Procedures XR FEMUR GENERAL 2V AP/LAT RIGHT RADIOLOGIC EXAMINATION FEMUR MINIM[place] [address] [place] [address] [place] [address] [place] [address] Referral ID Status Reason Start Date Expiration Date Visits Requested Visits Authorized [id number] New Request Auto-Generat ed Referral 4 06/10/2025 1 1 * Diagnostic Procedure Only (Routine) - Closed Specialty Diagnoses / Procedures Referred By Contac t Referred To Contact XR IMAGING Diagnoses Status post right hip replacement Pain of right hip Procedures XR HIP GENERAL 3V PELV/AP/LAT RIGHT RADEX HIP UNILATERAL WITH PELVIS 2-[place] [address] [place] [address] [place] [address] Referral ID Status Reason Start Date Expiration Date V isits Requested Visits Authorized [id number] Closed Auto-Generate d Referral 05/11/2024 06/10/2025 1 1 [facility] for referral (narrative)* Diagnostic Procedure Only (Routine) - Closed Specialty Diagnoses / Procedures Referred By Brian white Referred To Contact XR IMAGING Diagnoses Status post right hip replacement Pain of right hip Procedures XR HIP GENERAL 3V PELV/AP/LAT RIGHT RADEX HIP UNILATERAL WITH PELVIS 2-[place] [address] [place] [id number] [place] [address] Referral ID Status Reason Start Date Expiration Date V isits Requested Visits Authorized [id number] Closed Auto-Generate d Referral 05/11/2024 06/10/2025 1 1 [facility] for referral (narrative)* Diagnostic Procedure Only (Routine) - New Request Specialty Diagnoses / Procedures Referred By Brian t Referred To Contact MOLECULAR & FUNCTIONAL IMAGING Diagnoses Stress fracture of shaft of right femur, initial encounter Procedures NM BONE 3 PHASE BONE &/JOINT IMAGING 3 [place] [address] [place] [address] [facility] [address] [place] [address] Referral ID Status Reason Start Date Expiration Date Visits Requested Visits Authorized [id number] New Request Auto-Generat ed Referral 06/12/2025 1 1 [facility] for referral (narrative)* Diagnostic Procedure Only (Routine) - Closed Specialty Diagnoses / Procedures Referred By Contac t Referred To Contact MOLECULAR & FUNCTIONAL IMAGING Diagnoses Stress fracture of shaft of right femur, initial encounter Procedures NM BONE 3 PHASE BONE &/JOINT IMAGING 3 [place] [address] [place] [id number] Molecular [facility] Functional Imaging [address] [place] [address] Referral ID Status Reason Start Date Expiration Date V isits Requested Visits Authorized [id number] Closed Auto-Generate d Referral 05/13/2024 06/12/2025 1 1 [facility] for referral (narrative)* Diagnostic Procedure Only (Routine) - Closed Specialty Diagnoses / Procedures Referred By Contac t Referred To Contact XR IMAGING Diagnoses 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) Procedures XR HIP GENERAL 3V PELV/AP/LAT RIGHT RADEX HIP UNILATERAL WITH PELVIS 2-3 VIEWS Gregg Willard PA-C [facility] [place] [address] Xr Imaging [place] [address] Referral ID Status Reason Start Date Expiration Date V isits Requested Visits Authorized [id number] Closed Auto-Generate d Referral 05/28/2024 06/27/2025 1 1 [facility] for visit Narrative* Diagnostic Procedure Only (Routine) - Closed Specialty Diagnoses / Procedures Referred By Contsilvia t Referred To Contact MOLECULAR & FUNCTIONAL IMAGING Diagnoses Stress fracture of shaft of right femur, initial encounter Procedures NM BONE 3 PHASE BONE &/JOINT IMAGING 3 [place] [address] [place] [phone] Molecular [facility] Functional Imaging [address] [place] [address] Referral ID Status Reason Start Date Expiration Date V isits Requested Visits Authorized [id number] Closed Auto-Generate d Referral 05/13/2024 06/12/2025 1 1 [facility] Summary Purpose Family History No Family History Records FoundNo Family History Records FoundNo Family History Records Found Advance Directives No Advanced Directives Records FoundNo Advanced Directives Records FoundNo Advanced Directives Records Found Reason for Referral Specialty Diagnoses / Procedures Referred By Contac t Referred To Contact [facility] Diagnoses Pain of right hip Procedures CONSULT TO PHYSICAL THERAPY PHYSICAL THERAPY EVALUATION HIGH COMPLEX [address] [place] [address] [place] [address] [facility] [place] [address] [place] [address] Referral ID Status Reason Start Date Expiration Date Visits Requested Visits Authorized [id number] Authorized PCP Requested Referral Auto-Generate d Referral 06/01/2025 99 99 Additional Source Comments Source Comments (unrecognize d section and content) In the event this informatio n is protected by the Federal Confidentiality of Alcohol and Drug Abuse Patient Records regulations: The Federal rules restrict any use of the information to criminally investigate or prosecute any alcohol or drug abuse patient.[facility] the event this information is protected by the Federal Confidentiality of Alcohol and Drug Abuse Patient Records regulations: The Federal rules restrict any use of the information to criminally investigate or prosecute any alcohol or drug abuse patient.[facility] the event this information is protected by the Federal Confidentiality of Alcohol and Drug Abuse Patient Records regulations: The Federal rules restrict any use of the information to criminally investigate or prosecute any alcohol or drug abuse patient.[facility] the event this information is protected by the Federal Confidentiality of Alcohol and Drug Abuse Patient Records regulations: The Federal rules restrict any use of the information to criminally investigate or prosecute any alcohol or drug abuse patient.[facility] the event this information is protected by the Federal Confidentiality of Alcohol and Drug Abuse Patient Records regulations: The Federal rules restrict any use of the information to criminally investigate or prosecute any alcohol or drug abuse patient.[facility] the event this information is protected by the Federal Confidentiality of Alcohol and Drug Abuse Patient Records regulations: The Federal rules restrict any use of the information to criminally investigate or prosecute any alcohol or drug abuse patient.[facility] the event this information is protected by the Federal Confidentiality of Alcohol and Drug Abuse Patient Records regulations: The Federal rules restrict any use of the information to criminally investigate or prosecute any alcohol or drug abuse patient.[facility] the event this information is protected by the Federal Confidentiality of Alcohol and Drug Abuse Patient Records regulations: The Federal rules restrict any use of the information to criminally investigate or prosecute any alcohol or drug abuse patient.[facility] the event this information is protected by the Federal Confidentiality of Alcohol and Drug Abuse Patient Records regulations: The Federal rules restrict any use of the information to criminally investigate or prosecute any alcohol or drug abuse patient.[facility] the event this information is protected by the Federal Confidentiality of Alcohol and Drug Abuse Patient Records regulations: The Federal rules restrict any use of the information to criminally investigate or prosecute any alcohol or drug abuse patient.[facility] the event this information is protected by the Federal Confidentiality of Alcohol and Drug Abuse Patient Records regulations: The Federal rules restrict any use of the information to criminally investigate or prosecute any alcohol or drug abuse patient.[facility] the event this information is protected by the Federal Confidentiality of Alcohol and Drug Abuse Patient Records regulations: The Federal rules restrict any use of the information to criminally investigate or prosecute any alcohol or drug abuse patient.[facility] Reason for Visit (unrecogniz ed section and content) Reason Comments Appointment Reason Comments New Patient Pain Reason Comments Radio Gen A21 Specialty Diagnoses / Procedures Referred By Contac t Referred To Contact XR IMAGING Diagnoses Status post right hip replacement Pain of right hip Procedures XR HIP GENERAL 3V PELV/AP/LAT RIGHT RADEX HIP UNILATERAL WITH PELVIS 2-[place] [address] [place] [address] [place] [address] Referral ID Status Reason Start Date Expiration Date V isits Requested Visits Authorized [id number] Closed Auto-Generate d Referral 05/11/2024 06/10/2025 1 1 Reason Comments New Reason Comments Radiology XR Specialty Diagnoses / Procedures Referred By Contac t Referred To Contact XR IMAGING Diagnoses 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) Procedures XR HIP GENERAL 3V PELV/AP/LAT RIGHT RADEX HIP UNILATERAL WITH PELVIS 2-3 VIEWS Gregg Willard PA-C [address] [address] [place] [address] Referral ID Status Reason Start Date Expiration Date V isits Requested Visits Authorized [id number] Closed Auto-Generate d Referral 05/28/2024 06/27/2025 1 1 Reason Comments HANDICAP RX MAILED Reason Comments Follow Up Specialty Diagnoses / Procedures Referred By Nainac t Referred To Contact XR IMAGING Diagnoses Status post right hip replacement Procedures XR HIP GENERAL 3V PELV/AP/LAT RIGHT RADEX HIP UNILATERAL WITH PELVIS 2-3 VIEWS Gregg Willard PA-C [address] [place] [address] Phone: tel: fax: XR IMAGING [facility] Referral ID Status Reason Start Date Expiration Date V isits Requested Visits Authorized [id number] Closed Auto-Generate d Referral 09/27/2024 10/27/2025 1 1 Care Teams (unrecognized sec tion and content) Wire Rigger Relationship Specialty Start Date End Date Lavern Malcolm [address] [address] Referring Internal Medicine 03/19/24 Wire Rigger Relationship Specialty Start Date End Date Lavern Malcolm [address] [address] Referring Internal Medicine 03/19/24 Wire Rigger Relationship Specialty Start Date End Date Lavern Malcolm [address] [place] [address] Referring Internal Medicine 03/19/24 Wire Rigger Relationship Specialty Start Date End Date Lavern Malcolm [address] [place] [address] Referring Internal Medicine 03/19/24 Wire Rigger Relationship Specialty Start Date End Date Lavern Malcolm [address] [place] [address] Referring Internal Medicine 03/19/24 Wire Rigger Relationship Specialty Start Date End Date Lavern Malcolm [address] [place] [address] Referring Internal Medicine 03/19/24 Wire Rigger Relationship Specialty Start Date End Date Lavern Malcolm [address] [place] [address] Referring Internal Medicine 03/19/24 Wire Rigger Relationship Specialty Start Date End Date Lavern Malcolm [address] [place] [address] Referring Internal Medicine 03/19/24 INFORMATION SOURCE (unrecogn ized section and content) DATE CREATED AUTHOR 05/27/2024 [facility] DATE CREATED AUTHOR AUTHOR'S ORGANIZ ATION 06/15/2024 [facility] DATE CREATED AUTHOR AUTHOR'S ORGANIZ ATION 10/13/2024 [facility] FOR RECORDS PERTAINING TO PATIENTS WHO ARE OR HAVE BEEN ENROLLED IN A CHEMICAL DEPENDENCY/SUBSTANCEABUSE PROGRAM, SOME INFORMATION MAY BE OMITTED. This clinical summary was aggregated from multiple sources. Caution should be exercised in using it in the provision of clinical care. This summary normalizes information from multiple sources, and as a consequence, information in this document may materially change the coding, format and clinical context of patient data. In addition, data may be omitted in some cases. CLINICAL DECISIONS SHOULD BE BASED ON THE PRIMARY CLINICAL RECORDS. [employer] provides no warranty or guarantee of the accuracy or completeness of information in this document.
== END | disposition home or self-care (01) ==
LOC: OPBD 15:23
PROVIDERS: PCP Family Medicine; Referring Provider Family Medicine; Visit Provider Family Medicine
DX: Z12.31 Encounter for screening mammogram for malignant neoplasm of breast (principal); M81.0 Age-related osteoporosis without current pathological fracture
CPT/HCPCS: 77063; 77067; 77080

== ENCOUNTER → 2025-04-15 | Outpatient (CLI) | payer MEDICARE, OTHER, SELFPAY | END | disposition home or self-care (01) | LOC: OPBI 12:57 | PROVIDERS: PCP Family Medicine; Referring Provider Family Medicine; Visit Provider Family Medicine | DX: R92.8 Other abnormal and inconclusive findings on diagnostic imaging of breast (principal) | CPT/HCPCS: 76641; 77061; 77065; G0279 ==

== ENCOUNTER 2025-04-25 16:25 | Outpatient (CLI) | payer MEDICARE, OTHER, SELFPAY ==
--- NOTE | 2025-04-25 15:00 | BRBX_PTH ---
PATIENT: CHASE CARRASCO LOC: [facility] U#:[id number] AGE/SX: 69/F ROOM: RE04/25/[address]: Dr. Martina Mir MD : 1955 BED: DIS: 04/25/2025 SPEC #: [id number] RECD: 04/25/25 15:44 STATUS: BRYCE REQ #: [id number] CARINA: 04/25/25 15:[address]: Martina Mir DEPT: SURGICAL PATHOLOGY RECD BY: Reginaldo Diallo ENTERED: 04/26/25 11:05 SP TYPE: BREAST BX OTHR DR: Onel Solorzano MD Tissues: A - Left breast, NOS B - Left breast, NOS C - LYMPH NODE BIOPSY Procedures: Immunohistochemical Stains Surgery Specimen Level IV IHC Stain ADDITIONAL HEADER OPERATION: Left breast biopsy and left axillary lymph node PRE-OP DIAGNOSIS: Left breast and left axillary lymph node biopsy TISSUE SUBMITTED: A- Left breast mass *11o'clock, 6cm FN*, B- Left breast *4o'clock, 2cm FN*, C- Left axillary lymph node MICROSCOPIC DIAGNOSIS A. 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 - Tubule 3, nuclear 3, mitosis 2. - ER: positive (95%, strong intensity) - HI: positive (80%, strong intensity) - HER2 IHC: equivocal (score 2+) - HER2 FISH: pending at [facility], to be reported in an addendum. - Ki67: 40% B. Left breast, 4:00, 2 CMFN, core biopsy: - Benign breast tissue with predominant dense fibrosis. C. Left axillary lymph node, core biopsy: - Lymphoid tissue negative for metastasis. - IHC for pankeratin and ER support the histologic impression. Do ER MICROSCOPIC DESCRIPTION Slides are reviewed. All matched controls reacted appropriately. These tests were developed and their performance characteristics determined by [facility]. They may not have been cleared or approved by the [place]. Food and Drug Administration. The FDA has determined that such clearance or approval is not necessary. The above immunohistochemical markers and/or special?stains have been reviewed by the Pathologist. GROSS DESCRIPTION Received in 3 formalin containers labeled with the patient's name and date of . Designated as: A. L breast 11 o'clock 2 booth-yellow tissue cores, 1.1 cm and 0.4 cm in length by 0.1 cm in diameter. Entirely submitted in 1 cassette. B. L breast 4 o'clock are 2 booth-yellow tissue cores, 0.6 cm and 1.0 cm in length by 0.1 cm in diameter. Entirely submitted in 1 cassette. C. L axillary lymph node are multiple booth-yellow tissue core fragments, 1.0 x 0.4 x 0.1 cm in aggregate. Entirely submitted in 1 cassette. Cold ischemic time: <1-minuteFormalin fixation time: 28 hours, 30 minutes Note: Above times are based on the single collection time (3PM) on the requisition; individual collection times are not noted on the requisition. (MA). MA 04/26/2025PT:[id number] ADDENDUM ADDENDUM ADDENDUM ADDENDUM ADDENDUM ADDENDUM ADDENDUM ADDENDUM ADDENDUM ADDENDUM ADDENDUM ADDENDUM ADDENDUM ADDENDUM ADDENDUM ADDENDUM ADDENDUM ADDENDUM ADDENDUM ADDENDUM ADDENDUM ADDENDUM ADDENDUM ADDENDUM ADDENDUM ADDENDUM ADDENDUM ADDENDUM ADDENDUM 05/12/2025 10:44 ADDENDUM 05/12/2025 10:44 ADDENDUM 05/12/2025 10:44 ADDENDUM 05/12/2025 10:44 ADDENDUM 05/12/2025 10:44 This addendum is added to incorporate an outside pathology consultation report. The case was examined at [facility] (#[id number]) and the following diagnosis was rendered. A. Left breast, 11:00, 6CMFN, core biopsy: HER2: Negative HER2 FISH SCORE REPORT: HER2: NEGATIVE HER2 / CEP17 RATIO : 1.0 HER2 COPY NUMBER / CELL: 4.8 INTERPRETATION: Tumor shows a HER2 / CEP17 ratio less than 2.0 and mean HER2 copy number between 4 and 6 copies by FISH. Given the 2+ HER2 IHC, this case is scored as HER2 negative (Group 4E). COMMENT: It is uncertain whether patients with an average of 4.0 to 6.0 HER2 signals per cell and an HER2 / CEP17 ratio of <2.0 benefit from HER2 - targeted therapy in the absence of protein overexpression (IHC3+). Internal and external controls show expected signal pattern. An additional 20 cells were scored by FISH by an independent observer blinded to an initial count to resolve the HER2 status, per the 2018 CAP / ASCP / ASCO guidelines below. Please see complete above mentioned consultation report in EMR
== END 2025-04-25 23:59 | disposition home or self-care (01) ==
LOC: LABSPEC 16:29
PROVIDERS: PCP Family Medicine; Referring Provider Surgery; Visit Provider Surgery
DX: C50.412 Malignant neoplasm of upper-outer quadrant of left female breast (principal)
CPT/HCPCS: 88305; 88341; 88342

== ENCOUNTER → 2025-05-02 | Outpatient (CLI) | payer MEDICARE, OTHER, SELFPAY ==
[2025-05-02 15:13] LABS: Hematocrit 41.3 % (37-47); Hemoglobin 13.9 g/dL (12.0-15.0); Immature Granulocytes Count 0.020 X10^3/uL (0.0-0.0); Mean Corp Hgb Conc 33.7 g/dL (32-36); Mean Corpuscular Volume 94.3 fL (81-99); Mean Platelet Vol. 8.7 fl (6.2-12.0); NRBC Flagged by Analyzer 0 % (0-5); Platelet Count 349 K/mm3 (150-450); RBC Distribution Width CV 13.0 % (11.6-14.6); RBC Distribution Width SD 45.2 fl (35.1-43.9); Red Blood Count 4.38 M/mm3 (4.2-5.4); White Blood Count 6.9 K/mm3 (4.4-11.0)
[2025-05-02 16:01] LABS: AST(SGOT) 27 U/L (<=31); Alanine Aminotransfer ALT/SGPT 21 U/L (<=34); Albumin, Serum 4.8 g/dL (3.4-4.8); Alkaline Phosphatase 99 U/L (35-104); Anion Gap 12 (5-15); BUN 16 mg/dL (4-19); BUN/Creat Ratio 14.6 RATIO (10-20); Calcium,Total 10.0 mg/dL (7.6-11.0); Carbon Dioxide 26.5 mmol/L (21.0-32.0); Chloride 103 mmol/L (98-108); Globulin 2.9 g/dL (2.2-4.2); Glucose 91 mg/dL (70-99); Potassium 4.4 mmol/L (3.3-5.1); Vitamin D,25 Hydroxy 107.0 ng/mL (30-100)
[2025-05-02 16:13] LABS: Cholesterol 261 mg/dL (<=200); Low Density Lipoprotein Calc. 88 mg/dL; Triglycerides 137 mg/dL; Very Low Density Lipoprotein 27 mg/dL (5-40); cholesterol:hdl ratio screen 1.73
== END | disposition home or self-care (01) ==
LOC: MTLAB 13:33
PROVIDERS: PCP Family Medicine; Referring Provider Family Medicine; Visit Provider Family Medicine
DX: Z00.00 Encounter for general adult medical examination without abnormal findings (principal); E78.5 Hyperlipidemia, unspecified; E55.9 Vitamin D deficiency, unspecified; Z13.1 Encounter for screening for diabetes mellitus
CPT/HCPCS: 36415; 80053; 80061; 82306; 85025

== ENCOUNTER → 2025-05-10 | Outpatient (CLI) | payer MEDICARE, OTHER, SELFPAY ==
--- NOTE | 2025-05-10 14:50 | MRI_ITS ---
PROCEDURE: BREAST BILATERAL W/O AND W 05/10/2025 REASON FOR EXAM: POSITIVE BREAST CANCER 69-year-old female with recently diagnosed left breast cancer (invasive ductal carcinoma) presents for diagnostic MRI. TECHNIQUE: Procedure Code: [id number] Modality: MR Procedure: BREAST BILATERAL W/O AND W CONTRAST: 11 mL of IV Clariscan COMPARISON: Mammogram and ultrasound 04/15/2025, mammogram 04/07/2025 FINDINGS: TISSUE DENSITY: The breasts are heterogeneously dense, which may obscure small masses. Background Parenchymal Enhancement: Mild RIGHT Breast: No suspicious mass or non-mass enhancement. LEFT Breast: There is an irregular enhancing mass in the upper central left breast at middle depth, measuring 1.6 x 1.2 x 1.4 cm (AP by TR by CC) (series 94236 image 118, series 7 image 14). This mass corresponds to the biopsy-proven malignancy at 11 o'clock 6 cm from the nipple. There is a biopsy marker clip in the slightly lower outer left breast at middle depth without associated enhancement. There are no additional suspicious enhancements in the left breast. Other Findings: No suspicious axillary or internal mammary lymph nodes. Visualized portions of the thoracic and abdominal viscera are unremarkable. MRI/Breast Bilateral W/O and W IMPRESSION: 1. Irregular enhancing mass in the upper central left breast measuring up to 1 .6 cm, corresponds to the biopsy-proven malignancy at 11 o'clock 6 cm from the nipple. 2. There is no MR evidence of malignancy in the right breast. OVERALL FINAL ASSESSMENT BI-RADS 6: KNOWN BIOPSY-PROVEN MALIGNANCY. RECOMMENDATION: OTHER. Appropriate surgical and clinical management is recomme nded. Reading Location: [facility]
--- OUTSIDE RECORDS SUMMARY | 2025-05-10 19:01 | XMS RPT_ITS | CCD ---
Author Organization [facility] Care Team Providers Care Implementation Consultant Name Role Phone Lavern Malcolm Unavailable PROVIDER, UNKNOWN Referring Unavailable PROVIDER, UNKNOWN Referring Unavailable EROSSY, MARILY Referring Unavailable EROSSY, MARILY Referring Unavailable EROSSY, MARILY Attending Unavailable FRANK, GREGG Referring Unavailable EROSSY, MARILY Attending Unavailable EROSSY, MARILY Attending Unavailable FRANK, GREGG Referring Unavailable Care Physician, No Primary Primary Care Unava ilable Elijah Damico Attending Unavailable Robotham, Martina Attending Unavailable Jeanine, Chalon Primary Care Unavailable Robotham, Martina Referring Unavailable Jeanine, Chalon Primary Care Unavailable Jeanine, Chalon Referring Unavailable Jeanine, Chalon Attending Unavailable Jeanine, Chalon Referring Unavailable Jeanine, Chalon Attending Unavailable Jeanine, Chalon Primary Care Unavailable Jeanine, Chalon Referring Unavailable Robotham, Martina Attending Unavailable Jeanine, Chalon Primary Care Unavailable Jeanine, Chalon Referring Unavailable Jeanine, Chalon Attending Unavailable Jeanine, Chalon Primary Care Unavailable Robotham, Martina Attending Unavailable Robotham, Martina Referring Unavailable Jeanine, Chalon Primary Care Unavailable Medications Current Medications Medication Drug Class(es) [...] Problem Classification Problem Date Documented Date Episodic/Chronic Cancer of breast (1 source) Malignant neoplasm of unspecified site of left female breast; Translations: [Malignant neoplasm of unspecified site of left female breast] Onset: 05-03-2025 Chronic Fracture of neck of femur (hip) (3 [...] Translations: [Pain in right hip] 05-11-2024 Episodic Other screening for suspected conditions (not mental disorders or infectious disease) (2 sources) Other abnormal and inconclusive findings on diagnostic imaging of breast; Translations: [Encounter for screening mammogram for malignant neoplasm of breast] Onset: 04-20-2025 Episodic Past or Other Problems Problem Classification Problem Date Documented Da te Episodic/Chronic Complication of device; implant or graft (2 sources) Mechanical loosening of internal right hip prosthetic joint, initial encounter; Translations: [Mechanical loosening of prosthetic joint] Onset: 06-01-2024 06-01-2024 Episodic Other non-traumatic joint disorders (1 source) Pain in right hip; Translations: [Pain of right hip] Onset: 05-11-2024 Episodic Skull and face fractures (1 source) Fracture of nasal bones, initial encounter for closed fracture; Translations: [Fracture of nasal bones, initial encounter for closed fracture] Onset: 06-13-2024 Episodic Unclassified (3 sources) History of repair of hip joint 09-28-2024 Results Test Name Value Interpretation Reference Range Facility CBC W/Diff, Automatedon 11-1 5 Absolute Lymph 2.65 X10 3/uL Normal 0.83-4.51 [facility] Comment on above: Order Comment: Order Date: 10/14/24 Order Info: 0184- - CBCD Performed By: #### L 500.4100, L500.4050, L100.0100 #### [facility] [address] [place], [address] Absolute Neut 3.3 X10 3/uL Normal 2.0-7.7 [facility] Comment on above: Order Comment: Order Date: 10/14/24 Order Info: 0184- - CBCD Performed By: #### L 500.4100, L500.4050, L100.0100 #### [facility] [address] [place], [address] Basophils/100 WBC (Bld) 0.4 % Normal 0-1 [facility] Comment on above: Order Comment: Order Date: 10/14/24 Order Info: 0184- - CBCD Performed By: #### L 500.4100, L500.4050, L100.0100 #### [facility] [address] [place], [address] Eosinophils/100 WBC (Bld) 2.7 % Normal 0-5 [facility] Comment on above: Order Comment: Order Date: 10/14/24 Order Info: 0184- - CBCD Performed By: #### L 500.4100, L500.4050, L100.0100 #### [facility] [address] [place], [address] Erythrocyte distribution width (RBC) [Ratio] 13.0 % Normal 11.6-14.6 [facility] Comment on above: Order Comment: Order Date: 10/14/24 Order Info: 0184- - CBCD Performed By: #### L 500.4100, L500.4050, L100.0100 #### [facility] [address] [place], [address] Hematocrit (Bld) [Volume fraction] 41.3 % Normal 37-47 [facility] Comment on above: Order Comment: Order Date: 10/14/24 Order Info: 0184-1 - CBCD Performed By: #### L 500.4100, L500.4050, L100.0100 #### [facility] [address] [place], [address] Hemoglobin (Bld) [Mass/Vol] 13.9 g/dL Normal 12.0-15.0 [facility] Comment on above: Order Comment: Order Date: 10/14/24 Order Info: 0184- - CBCD Performed By: #### L 500.4100, L500.4050, L100.0100 #### [facility] [address] [place], [address] IG% 0.300 Normal 0.0-0.9 [facility] Comment on above: Order Comment: Order Date: 10/14/24 Order Info: [id number] - CBCD Result Comment: IG% - Immature Granulocytes (promyelocytes, myelocytes and metamyelocytes) > 1% indicates that a LEFT SHIFT is Present. Performed By: #### L 500.4100, L500.4050, L100.0100 #### [facility] [address] [place], [address] Lymphocytes/100 WBC (Bld) 38.2 % Normal 19-41 [facility] Comment on above: Order Comment: Order Date: 10/14/24 Order Info: [id number] - CBCD Performed By: #### L 500.4100, L500.4050, L100.0100 #### [facility] [address] [place], [address] MCH (RBC) [Entitic mass] 31.7 pg Normal 27.0-32.0 [facility] Comment on above: Order Comment: Order Date: 10/14/24 Order Info: [id number] - CBCD Performed By: #### L 500.4100, L500.4050, L100.0100 #### [facility] [address] [place], [address] MCHC (RBC) [Mass/Vol] 33.7 g/dL Normal 32-36 [facility] Comment on above: Order Comment: Order Date: 10/14/24 Order Info: [id number] - CBCD Performed By: #### L 500.4100, L500.4050, L100.0100 #### [facility] [address] [place], [address] MCV (RBC) [Entitic vol] 94.3 fL Normal 81-99 [facility] Comment on above: Order Comment: Order Date: 10/14/24 Order Info: 0184-1 - CBCD Performed By: #### L 500.4100, L500.4050, L100.0100 #### [facility] [address] [place], [address] Monocytes/100 WBC (Bld) 10.4 % High 0-10 [facility] Comment on above: Order Comment: Order Date: 10/14/24 Order Info: 0184-1 - CBCD Performed By: #### L 500.4100, L500.4050, L100.0100 #### [facility] [address] [place], [address] Neutrophils/100 WBC (Bld) 48.0 % Normal 47-70 [facility] Comment on above: Order Comment: Order Date: 10/14/24 Order Info: [id number] - CBCD Performed By: #### L 500.4100, L500.4050, L100.0100 #### [facility] [address] [place], [address] Nucleated RBC (Bld) [#/Vol] 0 10*3/uL Normal 0-5 [facility] Comment on above: Order Comment: Order Date: 10/14/24 Order Info: [id number] - CBCD Performed By: #### L 500.4100, L500.4050, L100.0100 #### [facility] [address] [place], [address] Platelet mean volume (Bld) [Entitic vol] 8.7 fL Normal 6.2-12.0 [facility] Comment on above: Order Comment: Order Date: 10/14/24 Order Info: [id number] - CBCD Performed By: #### L 500.4100, L500.4050, L100.0100 #### [facility] [address] [place], [address] Platelets (Bld) [#/Vol] 349 10*3/uL Normal 150-450 [facility] Comment on above: Order Comment: Order Date: 10/14/24 Order Info: [id number] - CBCD Performed By: #### L 500.4100, L500.4050, L100.0100 #### [facility] [address] [place], [address] RBC (Bld) [#/Vol] 4.38 10*6/uL Normal 4.2-5.4 [facility] Comment on above: Order Comment: Order Date: 10/14/24 Order Info: [id number] - CBCD Performed By: #### L 500.4100, L500.4050, L100.0100 #### [facility] [address] [place], [address] RDW SD 45.2 fl High 35.1-43.9 [facility] Comment on above: Order Comment: Order Date: 10/14/24 Order Info: [id number] - CBCD Performed By: #### L 500.4100, L500.4050, L100.0100 #### [facility] [address] [place], [address] WBC (Bld) [#/Vol] 6.9 10*3/uL Normal 4.4-11.0 [facility] Comment on above: Order Comment: Order Date: 10/14/24 Order Info: [id number] - CBCD Performed By: #### L 500.4100, L500.4050, L100.0100 #### [facility] [address] [place], [address] Comprehensive Metabolic Prof ilon 05-02-2025 Albumin [Mass/Vol] 4.8 g/dL Normal 3.4-4.8 [facility] Comment on above: Order Comment: Order Date: 10/14/24 Order Info: [id number] - CMP Order Info: [id number] - LIPID Performed By: #### L 500.4100, L500.4050, L100.0100 #### [facility] [address] [place], [address] Albumin/Globulin [Mass ratio] 1.6 {ratio} Normal 0.9-2.4 [facility] Comment on above: Order Comment: Order Date: 10/14/24 Order Info: [id number] - CMP Order Info: [id number] - LIPID Performed By: #### L 500.4100, L500.4050, L100.0100 #### [facility] [address] [place], [address] ALK PHOS 99 U/L Normal 35-104 [facility] Comment on above: Order Comment: Order Date: 10/14/24 Order Info: [id number] - CMP Order Info: [id number] - LIPID Performed By: #### L 500.4100, L500.4050, L100.0100 #### [facility] [address] [place], [address] ALT [Catalytic activity/Vol] 21 U/L Normal <=34 [facility] Comment on above: Order Comment: Order Date: 10/14/24 Order Info: [id number] - CMP Order Info: [id number] - LIPID Performed By: #### L 500.4100, L500.4050, L100.0100 #### [facility] [address] [place], [address] AST [Catalytic activity/Vol] 27 U/L Normal <=31 [facility] Comment on above: Order Comment: Order Date: 10/14/24 Order Info: [id number] - CMP Order Info: [id number] - LIPID Performed By: #### L 500.4100, L500.4050, L100.0100 #### [facility] [address] [place], [address] Bilirubin [Mass/Vol] 0.94 mg/dL Normal 0.00-1.30 [facility] Comment on above: Order Comment: Order Date: 10/14/24 Order Info: 0786- - CMP Order Info: [id number] - LIPID Performed By: #### L 500.4100, L500.4050, L100.0100 #### [facility] [address] [place], [address] BUN/CRE 14.6 RATIO Normal 10-20 [facility] Comment on above: Order Comment: Order Date: 10/14/24 Order Info: [id number]- - CMP Order Info: [id number] - LIPID Performed By: #### L 500.4100, L500.4050, L100.0100 #### [facility] [address] [place], [address] Calcium [Mass/Vol] 10.0 mg/dL Normal 7.6-11.0 [facility] Comment on above: Order Comment: Order Date: 10/14/24 Order Info: [id number] - CMP Order Info: [id number] - LIPID Performed By: #### L 500.4100, L500.4050, L100.0100 #### [facility] [address] [place], [address] Chloride [Moles/Vol] 103 mmol/L Normal 98-108 [facility] Comment on above: Order Comment: Order Date: 10/14/24 Order Info: [id number] - CMP Order Info: [id number] - LIPID Performed By: #### L 500.4100, L500.4050, L100.0100 #### [facility] [address] [place], [address] CO2 [Moles/Vol] 26.5 mmol/L Normal 21.0-32.0 [facility] Comment on above: Order Comment: Order Date: 10/14/24 Order Info: [id number] - CMP Order Info: [id number] - LIPID Performed By: #### L 500.4100, L500.4050, L100.0100 #### [facility] [address] [place], [address] Creatinine [Mass/Vol] 1.09 mg/dL Normal 0.70-1.20 [facility] Comment on above: Order Comment: Order Date: 10/14/24 Order Info: [id number] - CMP Order Info: [id number] - LIPID Performed By: #### L 500.4100, L500.4050, L100.0100 #### [facility] [address] [place], [address] GAP 12 Normal 5-15 [facility] Comment on above: Order Comment: Order Date: 10/14/24 Order Info: [id number] - CMP Order Info: [id number] - LIPID Performed By: #### L 500.4100, L500.4050, L100.0100 #### [facility] [address] [place], [address] GFR/1.73 sq M.predicted among non-blacks MDRD (S/P/Bld) [Vol rate/Area] 54 mL/min/{1.73_m2} Low >60 [facility] Comment on above: Order Comment: Order Date: 10/14/24 Order Info: [id number] - CMP Order Info: [id number] - LIPID Result Comment: mL/m in/1.73m2 CKD-EPI Creatinine Equation (2020) Performed By: #### L 500.4100, L500.4050, L100.0100 #### [facility] [address] [place], [address] Globulin (S) [Mass/Vol] 2.9 g/dL Normal 2.2-4.2 [facility] Comment on above: Order Comment: Order Date: 10/14/24 Order Info: [id number] - CMP Order Info: [id number] - LIPID Performed By: #### L 500.4100, L500.4050, L100.0100 #### [facility] [address] [place], [address] Glucose [Mass/Vol] 91 mg/dL Normal 70-99 [facility] Comment on above: Order Comment: Order Date: 10/14/24 Order Info: [id number]- - CMP Order Info: [id number] - LIPID Performed By: #### L 500.4100, L500.4050, L100.0100 #### [facility] [address] [place], [address] Potassium [Moles/Vol] 4.4 mmol/L Normal 3.3-5.1 [facility] Comment on above: Order Comment: Order Date: 10/14/24 Order Info: [id number] - CMP Order Info: [id number] - LIPID Performed By: #### L 500.4100, L500.4050, L100.0100 #### [facility] [address] [place], [address] Sodium [Moles/Vol] 142 mmol/L Normal 133-145 [facility] Comment on above: Order Comment: Order Date: 10/14/24 Order Info: [id number] - CMP Order Info: [id number] - LIPID Performed By: #### L 500.4100, L500.4050, L100.0100 #### [facility] [address] [place], [address] T PROT 7.7 g/dL Normal 5.9-8.4 [facility] Comment on above: Order Comment: Order Date: 10/14/24 Order Info: [id number] - CMP Order Info: [id number] - LIPID Performed By: #### L 500.4100, L500.4050, L100.0100 #### [facility] [address] [place], [address] Urea nitrogen [Mass/Vol] 16 mg/dL Normal 4-19 [facility] Comment on above: Order Comment: Order Date: 10/14/24 Order Info: [id number] - CMP Order Info: [id number] - LIPID Performed By: #### L 500.4100, L500.4050, L100.0100 #### [facility] [address] [place], [address] Lipid Profileon 05-02-2025 CHOL:HDL 1.73 Normal [facility] Comment on above: Order Comment: Order Date: 10/14/24Order Info: [id number] - CMPOrder Info: [id number] - LIPID Performed By: #### L 500.4100, L500.4050, L100.0100 ####[facility] [address] [place], [address] Cholesterol [Mass/Vol] 261 mg/dL High <=200 [facility] Comment on above: Order Comment: Order Date: 10/14/24Order Info: [id number] - CMPOrder Info: [id number] - LIPID Result Comment: Chol esterol level, Desirable <200 mg/dL Borderline high cholesterol 200-239 mg/dL High cholesterol >=240 mg/dL Recommendations of the NCEP Adult Treatment Panel for the following risk-cutoff thresholds for the [place] population. Performed By: #### L 500.4100, L500.4050, L100.0100 ####[facility] [address] [place], [address] Cholesterol in HDL [Mass/Vol] 151 mg/dL Normal [facility] Comment on above: Order Comment: Order Date: 10/14/24Order Info: [id number] - CMPOrder Info: [id number] - LIPID Result Comment: Chyna onal Cholesterol Education Program (NCEP) guidelines: <40 mg/dL: Low HDL-cholesterol (major risk factor for CHD) >= 60 mg/dL: High HDL-cholesterol (negative risk factor for CHD) HDL-cholesterol is affected by a number of factors, e.g. smoking, exercise, hormones, sex and age. Performed By: #### L 500.4100, L500.4050, L100.0100 ####[facility] [address] [place], [address] Cholesterol in LDL [Mass/Vol] 88 mg/dL Normal [facility] Comment on above: Order Comment: Order Date: 10/14/24Order Info: [id number] - CMPOrder Info: [id number] - LIPID Result Comment: Bord kemjxa=287-884 mg/dL Higher Bncc=321 mg/dL or greater Shore Equation 2020 for LDL-C Performed By: #### L 500.4100, L500.4050, L100.0100 ####[facility] [address] [place], [address] Cholesterol in VLDL [Mass/Vol] 27 mg/dL Normal 5-40 [facility] Comment on above: Order Comment: Order Date: 10/14/24Order Info: [id number] - CMPOrder Info: [id number] - LIPID Performed By: #### L 500.4100, L500.4050, L100.0100 ####[facility] [address] [place], [address] Triglyceride [Mass/Vol] 137 mg/dL Normal [facility] Comment on above: Order Comment: Order Date: 10/14/24Order Info: [id number] - CMPOrder Info: [id number] - LIPID Result Comment: The drugs N-Acetylcysteine and Metamizole may falsely depress this assay. Normal range: <150 mg/dL Borderline High: 150-199 mg/dL High: 200-499 mg/dL Very High: >500 mg/dL Performed By: #### L 500.4100, L500.4050, L100.0100 ####[facility] [address] [place], [place], [address] Vitamin D,25 Hydroxyon 05-02 Vitamin D 25-OH 107.0 ng/mL High 30-100 [facility] Comment on above: Order Comment: Order Date: 10/14/24Order Info: [id number] - CMPOrder Info: [id number] - LIPID Result Comment: Evangelina min D Status Deficiency: <20 ng/mL (50nmol/L) Insufficiency: 20-30 ng/mL (50-75 nmol/L) Sufficiency: 30-100 ng/mL (75-250 nmol/L) Toxicity: >100 ng/mL (>250 nmol/L) Performed By: #### L 506.1001 ####[facility] [address] [place], [place], [address] Immunohistochemical Stainson 04-25-2025 Immunohistochemical Stains -------- Patient Age/Sex Location Account Attending Physician -------- LIZBET PADILLA 69/F [facility] [id number] Dr. Martina Mir MD -------- Specimen: [id number] Received: 04/25/25 Status: BRYCE Sinclair Num: [id number] Spec Type: BREAST BX Subm Dr: Dr. Martina Mir MD HEADER OPERATION: Left breast biopsy and left axillary lymph node PRE-OP DIAGNOSIS: Left breast and left axillary lymph node biopsy TISSUE SUBMITTED: A- Left breast mass *11o'clock, 6cm FN*, B- Left breast *4o'clock, 2cm FN*, C- Left axillary lymph node -------- MICROSCOPIC DIAGNOSIS A. 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 - Tubule 3, nuclear 3, mitosis 2. - ER: positive (95%, strong intensity) - UT: positive (80%, strong intensity) - HER2 IHC: equivocal (score 2+) - HER2 FISH: pending at [facility], to be reported in an addendum. - Ki67: 40% B. Left breast, 4:00, 2 CMFN, core biopsy: - Benign breast tissue with predominant dense fibrosis. C. Left axillary lymph node, core biopsy: - Lymphoid tissue negative for metastasis. - IHC for pankeratin and ER support the histologic impression. Do ER MICROSCOPIC DESCRIPTION Slides are reviewed. All matched controls reacted appropriately. These tests were developed and their performance characteristics determined by [facility]. They may not have been cleared or approved by the U.S. Food and Drug Administration. The FDA has determined that such clearance or approval is not necessary. The above immunohistochemical markers and/or special???stains have been reviewed by the Pathologist. GROSS DESCRIPTION Received in 3 formalin containers labeled with the patient's name and date of . Designated as: A. L breast 11 o'clock 2 booth-yellow tissue cores, 1.1 cm and 0.4 cm in length by 0.1 cm in diameter. Entirely submitted in 1 cassette. B. L breast 4 o'clock are 2 booth-yellow tissue cores, 0.6 cm and 1.0 cm in length by 0.1 cm in diameter. Entirely submitted in 1 cassette. -------- Patient Age/Sex Location Account Attending Physician -------- LIZBET PADILLA 69/F [facility] [id number] Dr. Martina Mir MD -------- C. L axillary lymph node are multiple booth-yellow tissue core fragments, 1.0 x 0.4 x 0.1 cm in aggregate. Entirely submitted in 1 cassette. Cold ischemic time: <1-minuteFormalin fixation time: 28 hours, 30 minutes Note: Above times are based on the single collection time (3PM) on the requisition; individual collection times are not noted on the requisition. ([place]). [place] 5CPT:[id number], [id number] -------- Patient Age/Sex Location Account Attending Physician -------- LIZBET PADILLA 69/F [facility] [id number] Dr. Martina Mir MD -------- Signed (signature on file) Dr. Kelley Rees MD 05/04/25 1851 -------- [facility] Comment on above: Performed By: #### P [facility] #### [facility] [address] [place], [address] Surgery Visit Reporton 04-25 Surgery Visit Report [facility] [address] [place] [address] OFFICE VISIT Date of Service: 04/25/25 MR#: [id number] Acct: [id number] Name: LIZBET PADILLA Rep #: [id number] : 1955 Provider: Dr. Martina vaughn MD Age/Sex: 69/F Location: [facility] Status: Signed Intake Vital Signs 05/15/24 18:43 04/25/25 14:40 Height 5 ft 3 in 5 ft 3 in Weight: 121 lb BMI 21.4 BP 120/73 Blood Pressure Location Rt brachial Position Sitting Respiration 17 Pulse 80 Pulse Source Monitor Pulse Oximetry (%) 98 Oxygen Delivery Method room air Intake Visit Reasons: BIRADS 5 Chief Complaint: birads 5 Allergies No Known Allergies Allergy (Verified 04/25/25 15:36) Medications ???Medication ???Instructions ???Recorded ???Confirmed ???Type atorvastatin 10 mg tablet (Lipitor) 10 mg PO QDAY 04/25/25 04/25/25 History bupropion HCl 150 mg 24 hr tablet, 150 mg PO QAM 04/25/25 04/25/25 History extended release (Wellbutrin XL) cholecalciferol (vitamin D3) 25 25 mcg PO .3x/wk 04/25/25 04/25/25 History mcg (1,000 unit) capsule multivitamin 1 tab PO QAM 04/25/25 04/25/25 His tory vitamins A,C,J-ldps-ymtshs 4,296 1 cap PO QDAY 04/25/25 04/25/25 Hi story mcg-226 mg-90 mg capsule (PreserVision AREDS) Have you fallen in the past year?: No PFSH Medical History (Updated 04/26/25 @ 13:[address] Martina Mir MD) Anxiety Depression Hypertension Surgical History (Updated 04/25/25 @ 14:36 by Lilo Newell) History of hip replacement Family History (Updated 04/25/25 @ 14:40 by Lilo Newell) Grandmother Breast cancer was in her 60's Maternal Grandmother Breast cancer in her 60's Aunt Breast cancer, Onset Age: 50 Father Heart disease Hypertension Social History Smoking Status: Never smoker HPI HPI HPI: 69-year-old female presents due to abnormal mammogram and ultrasound. Patient denies noticing any lumps or bumps in her breast. Patient just moved a year ago from [facility] previous to that lived in [place]. Reports below showed 2 irregular left breast masses hypoechoic given a BI-RADS 5 as well as a couple lymph nodes with focal or mild thickening of the cortex???see report below. Age at menses 11, age of of first child N/A, family history of breast cancer both grandmothers in their 60s as well as aunt in her 50s. Patient had 2 previous needle biopsies about 40 years ago in [place] benign per patient. DIAG MAMM W/CAD, UNILAT; BREAST COMPLETE UNILATERAL; LT BRST UNILAT JEFFRY ADD ON 04/15/2025 CLINICAL HISTORY: F, Age 69 y/o , ABD MAMM; ABN TAJ TECHNIQUE: Procedure Code: BIDMWCADU; USBRU; BILTUNITOMO Modality: MG; US Procedure: DIAG MAMM W/CAD, UNILAT; BREAST COMPLETE UNILATERAL; LT BRST UNILAT JEFFRY ADD ON. COMPARISON: Prior exam(s) dated 04/07/2025, 02/25/2024. FINDINGS: MAMMOGRAM: TISSUE DENSITY: The breasts are heterogeneously dense, which may obscure small masses. Unilateral Left Breast Mammographic Findings: 1. Follow-up examination performed for the left breast mass seen on examination of 04/07/2025. On the present examination, there is a spiculated high density mass in the upper, slightly inner left breast at middle depth. 2. Follow-up examination performed for the calcifications in the left breast seen on examination of 04/07/2025. On the present examination, there are diffusely scattered amorphous calcifications in the lower-outer left breast at posterior depth. ULTRASOUND: 1. Ultrasound performed of the left breast demonstrates an irregular hypoechoic mass with posterior shadowing at 11 o'clock 6 cm from the nipple measuring 1.4 x 1.4 x 1.3 cm. This correlates with the mammographic finding. 2. There is another irregular hypoechoic mass with posterior shadowing in the left breast at 4 o'clock 5 cm from the nipple, measuring 1.5 x 0.9 x 0.7 cm. 3. There are at least 2 abnormal left axillary lymph nodes. The lymph node measuring 1.7 x 1.7 x 0.6 cm demonstrates a focal cortical area of thickening. The other lymph node demonstrates mild diffuse cortical thickening measuring 1.5 x 0.8 x 0.5 cm. There is another left axillary lymph node measuring 1.0 x 0.9 x 0.4 cm. US/Breast Complete Unilateral IMPRESSION: 1. Irregular left breast mass at 11 o'clock 6 cm from the nipple is highly suggestive of malignancy. Recommend tissue sampling with ultrasound-guided biopsy. 2. Irregular left breast mass at 4 o'clock 5 cm from the nipple is suspicious. Recommend tissue sampling with ultrasound-guided biopsy. 3. Abnormal left axillary lymph nodes. Recommend tissue sampling with ultrasound-guided biopsy. (more content not included)... Normal [facility] Breast Complete Unilateralon 04-15-2025 Breast Complete Unilateral [facility] Imaging Services [address] [place] [address] Breast Complete Unilateral MR#: [id number] Acct: [id number] Name: LIZBET PADILLA Rep #: [id number] : 1955 F 69 From: Holli Ott MD PCP: Dr. Onel Solorzano MD Status: REG CLI Study: Breast Complete Unilateral Date of Exam: 04/15 Exam# [id number] Ordering Dr: Onel Solorzano MD EXAM: DIAG MAMM W/CAD, UNILAT; BREAST COMPLETE UNILATERAL; LT BRST UNILAT JEFFRY ADD ON 04/15/2025 CLINICAL HISTORY: F, Age 69 y/o , ABD MAMM; ABN TAJ TECHNIQUE: Procedure Code: BIDMWCADU; USBRU; BILTUNITOMO Modality: MG; US Procedure: DIAG MAMM W/CAD, UNILAT; BREAST COMPLETE UNILATERAL; LT BRST UNILAT JEFFRY ADD ON. COMPARISON: Prior exam(s) dated 04/07/2025, 02/25/2024. FINDINGS: MAMMOGRAM: TISSUE DENSITY: The breasts are heterogeneously dense, which may obscure small masses. Unilateral Left Breast Mammographic Findings: 1. Follow-up examination performed for the left breast mass seen on examination of 04/07/2025. On the present examination, there is a spiculated high density mass in the upper, slightly inner left breast at middle depth. 2. Follow-up examination performed for the calcifications in the left breast seen on examination of 04/07/2025. On the present examination, there are diffusely scattered amorphous calcifications in the lower-outer left breast at posterior depth. ULTRASOUND: 1. Ultrasound performed of the left breast demonstrates an irregular hypoechoic mass with posterior shadowing at 11 o'clock 6 cm from the nipple measuring 1.4 x 1.4 x 1.3 cm. This correlates with the mammographic finding. 2. There is another irregular hypoechoic mass with posterior shadowing in the left breast at 4 o'clock 5 cm from the nipple, measuring 1.5 x 0.9 x 0.7 cm. 3. There are at least 2 abnormal left axillary lymph nodes. The lymph node measuring 1.7 x 1.7 x 0.6 cm demonstrates a focal cortical area of thickening. The other lymph node demonstrates mild diffuse cortical thickening measuring 1.5 x 0.8 x 0.5 cm. There is another left axillary lymph node measuring 1.0 x 0.9 x 0.4 cm. US/Breast Complete Unilateral IMPRESSION: 1. Irregular left breast mass at 11 o'clock 6 cm from the nipple is highly suggestive of malignancy. Recommend tissue sampling with ultrasound-guided biopsy. 2. Irregular left breast mass at 4 o'clock 5 cm from the nipple is suspicious. Recommend tissue sampling with ultrasound-guided biopsy. 3. Abnormal left axillary lymph nodes. Recommend tissue sampling with ultrasound-guided biopsy. 4. Consider MRI breast with and without contrast to evaluate for extent of disease and due to patient's dense breast tissue, post biopsy. OVERALL FINAL ASSESSMENT BI-RADS 5: HIGHLY SUGGESTIVE OF MALIGNANCY. RECOMMENDATION: Biopsy Recommended Additional Recommendation none A letter with findings and recommendations will be mailed to the patient. Reading Location: [facility] CC: Dr. Onel Solorzano MD Home Care Administrator: Signed Normal [facility] DIAG MAMM W/CAD, UNILATon DIAG MAMM W/CAD, UNILAT [facility] Imaging Services [address] [place] [address] DIAG MAMM W/CAD, UNILAT MR#: [id number] Acct: [id number] Name: LIZBET PADILLA Rep #: [id number] : 1955 F 69 From: Holli Ott MD PCP: Dr. Onel Solorzano MD Status: REG CLI Study: DIAG MAMM W/CAD, UNILAT Date of Exam: 04/15/25 Exam# [id number] Ordering Dr: Onel Solorzano MD EXAM: DIAG MAMM W/CAD, UNILAT; BREAST COMPLETE UNILATERAL; LT BRST UNILAT JEFFRY ADD ON 04/15/2025 CLINICAL HISTORY: F, Age 69 y/o , ABD MAMM; ABN TAJ TECHNIQUE: Procedure Code: BIDMWCADU; USBRU; BILTUNITOMO Modality: MG; US Procedure: DIAG MAMM W/CAD, UNILAT; BREAST COMPLETE UNILATERAL; LT BRST UNILAT JEFFRY ADD ON. COMPARISON: Prior exam(s) dated 04/07/2025, 02/25/2024. FINDINGS: MAMMOGRAM: TISSUE DENSITY: The breasts are heterogeneously dense, which may obscure small masses. Unilateral Left Breast Mammographic Findings: 1. Follow-up examination performed for the left breast mass seen on examination of 04/07/2025. On the present examination, there is a spiculated high density mass in the upper, slightly inner left breast at middle depth. 2. Follow-up examination performed for the calcifications in the left breast seen on examination of 04/07/2025. On the present examination, there are diffusely scattered amorphous calcifications in the lower-outer left breast at posterior depth. ULTRASOUND: 1. Ultrasound performed of the left breast demonstrates an irregular hypoechoic mass with posterior shadowing at 11 o'clock 6 cm from the nipple measuring 1.4 x 1.4 x 1.3 cm. This correlates with the mammographic finding. 2. There is another irregular hypoechoic mass with posterior shadowing in the left breast at 4 o'clock 5 cm from the nipple, measuring 1.5 x 0.9 x 0.7 cm. 3. There are at least 2 abnormal left axillary lymph nodes. The lymph node measuring 1.7 x 1.7 x 0.6 cm demonstrates a focal cortical area of thickening. The other lymph node demonstrates mild diffuse cortical thickening measuring 1.5 x 0.8 x 0.5 cm. There is another left axillary lymph node measuring 1.0 x 0.9 x 0.4 cm. BI/DIAG MAMM W/CAD, UNILAT IMPRESSION: 1. Irregular left breast mass at 11 o'clock 6 cm from the nipple is highly suggestive of malignancy. Recommend tissue sampling with ultrasound-guided biopsy. 2. Irregular left breast mass at 4 o'clock 5 cm from the nipple is suspicious. Recommend tissue sampling with ultrasound-guided biopsy. 3. Abnormal left axillary lymph nodes. Recommend tissue sampling with ultrasound-guided biopsy. 4. Consider MRI breast with and without contrast to evaluate for extent of disease and due to patient's dense breast tissue, post biopsy. OVERALL FINAL ASSESSMENT BI-RADS 5: HIGHLY SUGGESTIVE OF MALIGNANCY. RECOMMENDATION: Biopsy Recommended Additional Recommendation none A letter with findings and recommendations will be mailed to the patient. Reading Location: [facility] CC: Dr. Onel Solorzano MD Home Care Administrator: Signed Normal [facility] Lt Brst Unilat Jeffry Add Onon 04-15-2025 Lt Brst Unilat Jeffry Add On [facility] Imaging Services [address] [place], [place] [id number] Lt Brst Unilat Jeffry Add On MR#: [id number] Acct: [id number] Name: LIZBET PADILLA Rep #: [id number] : 1955 F 69 From: Holli Ott MD PCP: Dr. Onel Solorzano MD Status: REG CLI Study: Lt Brst Unilat Jeffry Add On Date of Exam: 04/15 Exam# [id number] Ordering Dr: Onel Solorzano MD EXAM: DIAG MAMM W/CAD, UNILAT; BREAST COMPLETE UNILATERAL; LT BRST UNILAT JEFFRY ADD ON 04/15/2025 CLINICAL HISTORY: F, Age 69 y/o , ABD MAMM; ABN TAJ TECHNIQUE: Procedure Code: BIDMWCADU; USBRU; BILTUNITOMO Modality: MG; US Procedure: DIAG MAMM W/CAD, UNILAT; BREAST COMPLETE UNILATERAL; LT BRST UNILAT JEFFRY ADD ON. COMPARISON: Prior exam(s) dated 04/07/2025, 02/25/2024. FINDINGS: MAMMOGRAM: TISSUE DENSITY: The breasts are heterogeneously dense, which may obscure small masses. Unilateral Left Breast Mammographic Findings: 1. Follow-up examination performed for the left breast mass seen on examination of 04/07/2025. On the present examination, there is a spiculated high density mass in the upper, slightly inner left breast at middle depth. 2. Follow-up examination performed for the calcifications in the left breast seen on examination of 04/07/2025. On the present examination, there are diffusely scattered amorphous calcifications in the lower-outer left breast at posterior depth. ULTRASOUND: 1. Ultrasound performed of the left breast demonstrates an irregular hypoechoic mass with posterior shadowing at 11 o'clock 6 cm from the nipple measuring 1.4 x 1.4 x 1.3 cm. This correlates with the mammographic finding. 2. There is another irregular hypoechoic mass with posterior shadowing in the left breast at 4 o'clock 5 cm from the nipple, measuring 1.5 x 0.9 x 0.7 cm. 3. There are at least 2 abnormal left axillary lymph nodes. The lymph node measuring 1.7 x 1.7 x 0.6 cm demonstrates a focal cortical area of thickening. The other lymph node demonstrates mild diffuse cortical thickening measuring 1.5 x 0.8 x 0.5 cm. There is another left axillary lymph node measuring 1.0 x 0.9 x 0.4 cm. BI/Lt Brst Unilat Jeffry Add On IMPRESSION: 1. Irregular left breast mass at 11 o'clock 6 cm from the nipple is highly suggestive of malignancy. Recommend tissue sampling with ultrasound-guided biopsy. 2. Irregular left breast mass at 4 o'clock 5 cm from the nipple is suspicious. Recommend tissue sampling with ultrasound-guided biopsy. 3. Abnormal left axillary lymph nodes. Recommend tissue sampling with ultrasound-guided biopsy. 4. Consider MRI breast with and without contrast to evaluate for extent of disease and due to patient's dense breast tissue, post biopsy. OVERALL FINAL ASSESSMENT BI-RADS 5: HIGHLY SUGGESTIVE OF MALIGNANCY. RECOMMENDATION: Biopsy Recommended Additional Recommendation none A letter with findings and recommendations will be mailed to the patient. Reading Location: [id number] CC: Dr. Onel Solorzano MD Home Care Administrator: Signed Normal [facility] Dexa Bone Density Studyon Dexa Bone Density Study [facility] Imaging Services [facility] [place] [address] Dexa Bone Density Study MR#: [id number] Acct: [id number] Name: LIZBET PADILLA Rep #: [id number] : 1955 F 69 From: Ryan candelario MD PCP: Dr. Onel Solorzano MD Status: REG CLI Study: Dexa Bone Density Study Date of Exam: 04/07/25 Exam# [id number] Ordering Dr: Onel Solorzano MD PROCEDURE: DEXA BONE DENSITY STUDY 04/07/2025 REASON FOR EXAM: F, age 69 y/o . Postmenopausal. TECHNIQUE: Procedure Code: BDDBD Modality: DX Procedure: DEXA BONE DENSITY STUDY COMPARISON: None FINDINGS: BMD and T-SCORES Lumbar spine: 0.998 g/cm2, T-score -0.4 Levels: L1 through L4 Left femoral neck: 0.610 g/cm2, T-score -2.2 Femoral neck comparison data not recommended for monitoring change. Left total hip: 0.620 g/cm2, T-score -2.6 The World Health Organization has defined the following categories based on bone density: Normal bone density: T-score equal to or greater than -1.0 Osteopenia: T-score between -1.0 and -2.5 Osteoporosis: T-score equal to or less than -2.5 FRAX (or Comparable) Fracture Risk Assessment: 10 Year Probability of Fracture: Major Osteoporotic Fracture: 18% Hip Fracture: 4.2% (Note: FRAX is not to be reported in setting of normal range bone density, osteoporosis on DEXA, known history of osteoporosis, prior osteoporotic hip or vertebral fracture, or for any patient undergoing pharmacological treatment for bone loss.) The National Osteoporosis Foundation (NOF) recommends pharmacological treatment for patients with a FRAX 10-year risk of 3% or higher for a hip fracture, or 20% or higher for a major osteoporotic fracture, to prevent osteoporosis and reduce fracture risk. The patient does meet the pharmacological treatment recommendations for prevention of osteoporosis. BD/Dexa Bone Density Study IMPRESSION: OSTEOPOROSIS. Recommend follow-up as clinically warranted. Reading Location: [place] [address] CC: Dr. Onel Solorzano MD Home Care Administrator: Signed Normal [facility] SCRN MAMM (CAD)W/JEFFRY BILATo n 04-07-2025 SCRN MAMM (CAD)W/JEFFRY BILAT [facility] Imaging Services [address] [place] [id number] SCRN MAMM (CAD)W/JEFFRY BILAT MR#: [id number] Acct: [id number] Name: LIZBET PADILLA Rep #: [id number] : 1955 F 69 From: Violet Melendez i, MD PCP: Dr. Onel Solorzano MD Status: REG CLI Study: SCRN MAMM (CAD)W/JEFFRY BILAT Date of Exam: 03/23 12/15 Exam# [id number] Ordering Dr: Onel Solorzano MD EXAM: SCRN MAMM (CAD)W/JEFFRY BILAT DATE: 04/07/2025 CLINICAL HISTORY: F, Age 69 y/o , ANNUAL SCREENING TECHNIQUE: Procedure Code: BISMWCADBTOM Modality: MG Procedure: SCRN MAMM (CAD)W/JEFFRY BILAT COMPARISON: Prior exam(s) were compared FINDINGS: TISSUE DENSITY: The breasts are heterogeneously dense, which may obscure small masses. Bilateral Breast Mammographic Findings: Left breast: There is a spiculated mass with associated calcifications in the upper inner left breast posterior depth (cc frame 44 and MLO frame 45). Recommend additional imaging with diagnostic left breast mammogram spot compression views, full field true lateral view and targeted ultrasound scanning the upper inner left breast. There are grouped calcifications in the lower outer left breast posterior depth. Recommend additional imaging with diagnostic left breast mammogram magnification views. Right breast: No significant masses, calcifications or other abnormalities are identified. BI/SCRN MAMM (CAD)W/JEFFRY BILAT IMPRESSION: Additional imaging is recommended of the left breast as described above. No mammographic evidence of malignancy in the right breast. OVERALL FINAL ASSESSMENT BI-RADS 0: INCOMPLETE - NEED ADDITIONAL IMAGING EVALUATION. RECOMMENDATION: Additional Views obtained/call backs Additional Recommendation none A letter with findings and recommendations will be mailed to the patient. Reading Location: [id number] CC: Dr. 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 Normal [facility] XR HIP 3V PELV+ AP/LAT RTon 09-28-2024 [...] IMPRESSION: Right total hip arthroplasty without complication Home Care Administrator: PSCB Transcribe Date/Time: Sep 28 2024 4:54P Dictated by : FRED MONREAL MD This examination was interpreted and the report reviewed and electronically signed by: FRED MONREAL MD on Sep 28 2024 4:54PM EST [id number] N Normal [facility] XR Pelvis and Hip - right AP and Lateral frogon 09-28-2024 IMPRESSION: Right total hip arthroplasty without complication Home Care Administrator: [facility] Transcribe Date/Time: Sep 28 2024 4:54P Dictated [...] change noted L5-S1. DIVISION OF RADIOLOGY Provider, [facility] - 09/28/2024 * * *Final Report* * [...] IMPRESSION: Right total hip arthroplasty without complication Home Care Administrator: PSCB Transcribe Date/Time: Sep 28 2024 4:54P Dictated by : FRED MONREAL MD This examination was interpreted and the report reviewed and electronically signed by: FRED MONREAL MD on Sep 28 2024 4:54PM [facility] Radiology Study observation (narrative) Xiomara sanz [facility] XR Pelvis and Hip - right AP and Lateral frogOrdered By: [facility] Provider on 09-28-2024 [facility] CNPAnamaria 06-11-2024 CNPN Telephone (ORQ) LIZBET PADILLA ([id number]) 1955 F Date Time Provider Department 06/11/24 MARILY BE ORAbbey During your visit today, we recorded the following information about you: Yanet Coughlin 06/11/2024 10:06 AM Signed HANDICAP RX [...] Of Date: 06/11/2024 (None) Encounter Status:Closed by YANET COUGHLIN on 06/11/24 [facility] CNOVon 06-01-2024 CNOV Office Visit (ORAVON ) LIZBET PADILLA ([id number]) 1955 F Date Time Provider Department 06/01/24 11:00 AM MARILY BE During your visit today, we recorded the following information about you: Marily Be MD 06/01/2024 12:57 PM Signed Established Patient Ortho Hip Consult Note ASSESSMENT AND PLAN: Impression: 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 Normal [facility] XR HIP 3V PELV+ AP/LAT RTon 06-01-2024 [...] other significant abnormality. IMPRESSION: NO SIGNIFICANT CHANGE Home Care Administrator: [facility] Transcribe Date/Time: Jun 01 2024 10:35A Dictated by : ALEXUS DUMONT MD This examination was interpreted and the report reviewed and electronically signed by: ALEXUS DUMONT MD on Jun 01 2024 10:36AM EST [id number] N Normal [facility] XR Pelvis and Hip - right AP and Lateral frogon 06-01-2024 IMPRESSION: NO SIGNIFICANT CHANGE Home Care Administrator: [facility] Transcribe Date/Time: Jun 01 2024 10:35A Dictated [...] other significant abnormality. DIVISION OF RADIOLOGY Provider, [facility] - 06/01/2024 * * *Final Report* * [...] significant abnormality. IMPRESSION IMPRESSION: NO SIGNIFICANT CHANGE Home Care Administrator: ALLI Transcribe Date/Time: Jun 01 2024 10:35A Dictated by : ALEXUS DUMONT MD This examination was interpreted and the report reviewed and electronically signed by: ALEXUS DUMONT MD on Jun 01 2024 10:36AM EST [facility] Radiology Study observation (narrative) [facility] XR Pelvis and Hip - right AP and Lateral frogOrdered By: [facility] Provider on 06-01-2024 [facility] [place] BONE 3 PHASEon 05-25-2024 [place] BONE 3 PHASE * * *Final Report* * * DATE OF EXAM: May 25 2024 3:54PM CHAU 0009 - [place] BONE 3 PHASE / PROCEDURE REASON: M84.351A-Stress [...] prosthesis as described, likely related to loosening. Home Care Administrator: [facility] Transcribe Date/Time: May 25 2024 4:43P Dictated by : KAYLA JACKSON MD This examination was interpreted and the report reviewed and electronically signed by: KAYLA JACKSON MD on May 25 2024 5:04PM EST [id number] N Normal [facility] Bone 3 Phase Viewson 12-0 IMPRESSION: Abnormal uptake in the periprosthetic region of the right hip prosthesis as described, likely related to loosening. Home Care Administrator: [facility] Transcribe Date/Time: May 25 2024 4:43P Dictated by : KAYLA JACKSON MD This examination was interpreted and the report reviewed and electronically signed by: KAYLA JACKSON MD on May 25 2024 5:04PM [facility] * * *Final Report* * * DATE OF EXAM: May 25 2024 3:54PM CHAU 0009 - LA BONE 3 PHASE / PROCEDURE REASON: M84.351A-Stress [...] in the other portions of the prosthesis. [facility] Provider, [facility] [place] - 05/25/2024 * * *Final Report* * [...] prosthesis as described, likely related to loosening. Home Care Administrator: LALI Transcribe Date/Time: May 25 2024 4:43P Dictated by : KAYLA JACKSON MD This examination was interpreted and the report reviewed and electronically signed by: KAYLA JACKSON MD on May 25 2024 5:04PM EST [facility] Radiology Study observation (narrative) Xiomara Ocasio [place] Bone 3 Phase ViewsOrdered By: [facility] Provider on 05-25-2024 [facility] Emergency Department Summary on 05-15-2024 Emergency Department Summary [facility] Medical Records Department [address] [place] [address] Emergency Department Summary 05/15/24 MR#: [id number] Acct: [id number] Name: LIZBET PADILLA Rep #: [id number] : 1955 68 From: Elijah Damico MD [...] other complaints. Prior similar symptoms: No Recent Illness/Hospitalizati on: No PFSH PFSH Medical History Hypertension Allergy/AdvReac [...] or depression Endocrine Endocrinology: Denies polydipsia Hematologic/Lymphatic Hematologic/Lymphatic : Denies easy bleeding Allergic/Immunologic Allergic/Immunologic ED: Denies mouth swelling EXAM Physical Exam Narrative Exam Narrative: Well-appearing 68-year-old female. Vital signs stable afebrile. Accompanied by friend. H EENT exam pupils round reactive light. Scalp nontender no hematoma. Nose nasal shearing machine tender swollen consistent with a nasal fracture. Blood [...] girdle intact. Moving all 4 extremities. Normal battery plate remover strength. Normal range of motion upper and [...] bowel so (more content not included)... Normal [facility] CBC W Auto Differential pane l (Bld)on 05-12-2024 Basophils (Bld) [#/Vol] 0.05 10*3/uL Normal <0.11 [facility] Comment on above: Order Comment: Speci men Type: BLOOD SPECIMEN Ordering Facility: [facility] Address: [address] [place] [address] Performed By: #### 5 7021-8, 7-7 #### [facility] CLIA [id number] [address] [place] [address] [place] Basophils/100 WBC (Bld) 0.7 % Normal C [facility] Comment on above: Order Comment: Speci men Type: BLOOD SPECIMEN Ordering Facility: [facility] Address: [address] [place] [address] Performed By: #### 5 7021-8, 4536-7 #### [facility] CLIA [id number] [address] [place] [address] [place] Differential cell count method Nom (Bld) Auto Normal [facility] Comment on above: Order Comment: Speci men Type: BLOOD SPECIMEN Ordering Facility: [facility] Address: [address] [place] [address] Performed By: #### 5 7021-8, 4536-7 #### [facility] CLIA [id number] [address] [place] [address] [place] Eosinophils (Bld) [#/Vol] 0.28 10*3/uL Normal <0.46 [facility] Comment on above: Order Comment: Speci men Type: BLOOD SPECIMEN Ordering Facility: [facility] Address: [address] [place] [address] Performed By: #### 5 7021-8, 4536-7 #### [facility] CLIA [id number] [address] [place] [address] [place] Eosinophils/100 WBC (Bld) 3.7 % Normal [facility] Comment on above: Order Comment: Speci men Type: BLOOD SPECIMEN Ordering Facility: [facility] Address: [address] [place] [address] Performed By: #### 5 7021-8, 7-7 #### [facility] CLIA [id number] [address] [place] [address] [place] Erythrocyte distribution width (RBC) [Ratio] 12.1 % Normal 11.5-15.0 [facility] Comment on above: Order Comment: Speci men Type: BLOOD SPECIMEN Ordering Facility: [facility] Address: [address] [place] [address] Performed By: #### 5 7021-8, 4537-7 #### [facility] CLIA [id number] [address] [place] [address] [place] Hematocrit (Bld) [Volume fraction] 43.4 % Normal 36.0-46.0 [facility] Comment on above: Order Comment: Speci men Type: BLOOD SPECIMEN Ordering Facility: [facility] Address: [address] [place] [address] Performed By: #### 5 7021-8, 4537-7 #### [facility] CLIA [id number] [address] [place] [address] [place] Hemoglobin (Bld) [Mass/Vol] 14.4 g/dL Normal 11.5-15.5 [facility] Comment on above: Order Comment: Speci men Type: BLOOD SPECIMEN Ordering Facility: [facility] Address: [address] [place] [address] Performed By: #### 5 7021-8, 4537-7 #### [facility] CLIA [id number] [address] [place] [address] [place] Immature granulocytes (Bld) [#/Vol] 10*3/uL Normal <0.10 [facility] Comment on above: Order Comment: Speci men Type: BLOOD SPECIMEN Ordering Facility: [facility] Address: [address] [place] [address] Performed By: #### 5 7021-8, 4537-7 #### [facility] CLIA [id number] [address] [place] [address] [place] Immature granulocytes/100 WBC (Bld) 0.1 % Normal [facility] Comment on above: Order Comment: Speci men Type: BLOOD SPECIMEN Ordering Facility: [facility] Address: [address] [place] [address] Performed By: #### 5 7021-8, 453-7 #### [facility] CLIA [id number] [address] [place] [address] [place] Lymphocytes (Bld) [#/Vol] 3.13 10*3/uL Normal 1.00-4.00 [facility] Comment on above: Order Comment: Speci men Type: BLOOD SPECIMEN Ordering Facility: [facility] Address: [address] [place] [address] Performed By: #### 5 7021-8, 453-7 #### [facility] CLIA [id number] [address] [place] [address] [place] Lymphocytes/100 WBC (Bld) 41.3 % Normal [facility] Comment on above: Order Comment: Speci men Type: BLOOD SPECIMEN Ordering Facility: [facility] Address: [address] [place] [address] Performed By: #### 5 7021-8, 4536-7 #### [facility] CLIA [id number] [address] [place] [address] [place] MCH (RBC) [Entitic mass] 31.7 pg Normal 26.0-34.0 [facility] Comment on above: Order Comment: Speci men Type: BLOOD SPECIMEN Ordering Facility: [facility] Address: [address] [place] [address] Performed By: #### 5 7021-8, 4536-7 #### [facility] CLIA [id number] [address] [place] [address] [place] MCHC (RBC) [Mass/Vol] 33.2 g/dL Normal 30.5-36.0 [facility] Comment on above: Order Comment: Speci men Type: BLOOD SPECIMEN Ordering Facility: [facility] Address: [address] [place] [address] Performed By: #### 5 7021-8, 4537-7 #### [facility] CLIA [id number] [address] [place] [address] [place] MCV (RBC) [Entitic vol] 95.6 fL Normal 80.0-100.0 C [facility] Comment on above: Order Comment: Speci men Type: BLOOD SPECIMEN Ordering Facility: [facility] Address: [address] [place] [address] Performed By: #### 5 7021-8, 4537-7 #### [facility] CLIA [id number] [address] [place] [address] [place] Monocytes (Bld) [#/Vol] 0.75 10*3/uL Normal <0.87 [facility] Comment on above: Order Comment: Speci men Type: BLOOD SPECIMEN Ordering Facility: [facility] Address: [address] [place] [address] Performed By: #### 5 7021-8, 453-7 #### [facility] CLIA [id number] [address] [place] [address] [place] Monocytes/100 WBC (Bld) 9.9 % Normal C [facility] Comment on above: Order Comment: Speci men Type: BLOOD SPECIMEN Ordering Facility: [facility] Address: [address] [place] [address] Performed By: #### 5 7021-8, 4537-7 #### [facility] CLIA [id number] [address] [place] [address] [place] Neutrophils (Bld) [#/Vol] 3.36 10*3/uL Normal 1.45-7.50 [facility] Comment on above: Order Comment: Speci men Type: BLOOD SPECIMEN Ordering Facility: [facility] Address: [address] [place] [address] Performed By: #### 5 7021-8, 4537-7 #### [facility] CLIA [id number] [address] [place] [address] [place] Neutrophils/100 WBC (Bld) 44.3 % Normal [facility] Comment on above: Order Comment: Speci men Type: BLOOD SPECIMEN Ordering Facility: [facility] Address: [address] [place] [address] Performed By: #### 5 7021-8, 4537-7 #### [facility] CLIA [id number] [address] [place] [address] [place] Nucleated RBC (Bld) [#/Vol] 10*3/uL Normal <0.01 [facility] Comment on above: Order Comment: Speci men Type: BLOOD SPECIMEN Ordering Facility: [facility] Address: [address] [place] [address] Performed By: #### 5 7021-8, 4537-7 #### [facility] CLIA [id number] [address] [place] [address] [place] Nucleated RBC/100 WBC (Bld) [Ratio] 0.0 /[address] [facility] Comment on above: Order Comment: Speci men Type: BLOOD SPECIMEN Ordering Facility: [facility] Address: [address] [place] [address] Performed By: #### 5 7021-8, 4537-7 #### [facility] CLIA [id number] [address] [place] [address] [place] Platelet mean volume (Bld) [Entitic vol] 8.9 fL Low 9.0-12.7 [facility] Comment on above: Order Comment: Speci men Type: BLOOD SPECIMEN Ordering Facility: [facility] Address: [address] [place] [address] Performed By: #### 5 7021-8, 4537-7 #### [facility] CLIA [id number] [address] [place] [address] [place] Platelets (Bld) [#/Vol] 324 10*3/uL Normal 150-400 [facility] Comment on above: Order Comment: Speci men Type: BLOOD SPECIMEN Ordering Facility: [facility] Address: [address] [place] [address] Performed By: #### 5 7021-8, 4537-7 #### [facility] CLIA [id number] [address] [place] [address] [place] RBC (Bld) [#/Vol] 4.54 10*6/uL Normal 3.90-5.20 [facility] Comment on above: Order Comment: Speci men Type: BLOOD SPECIMEN Ordering Facility: [facility] Address: [address] [place] [address] Performed By: #### 5 7021-8, 4537-7 #### [facility] CLIA [id number] [address] [place] [address] [place] WBC (Bld) [#/Vol] 7.58 10*3/uL Normal 3.70-11.00 [facility] Comment on above: Order Comment: Speci men Type: BLOOD SPECIMEN Ordering Facility: [facility] Address: [address] [place] [address] Performed By: #### 5 7021-8, 4537-7 #### [facility] CLIA [id number] [address] [place] [address] [place] CRP SerPl-ncon 05-12-2024 CRP [Mass/Vol] mg/L Normal <0.9 [facility] Comment on above: Order Comment: Speci men Type: BLOOD SPECIMEN Ordering Facility: [facility] Address: [address] [place] [address] Performed By: #### 1 988-5 #### [facility] CLIA [id number] [address] [place] [address] [place] ESR Westergren method (Bld) [Velocity]on 05-12-2024 ESR (Bld) [Velocity] 5 mm/h Normal 0-20 [facility] Comment on above: Order Comment: Speci men Type: BLOOD SPECIMEN Ordering Facility: [facility] Address: [address] [place] [address] Performed By: #### 5 7021-8, 4537-7 #### [facility] CLIA [id number] [address] [place] [address] CNOVon 05-11-2024 CNOV Office Visit (ORTHMN ) LIZBET PADILLA ([id number]) 1955 F Date Time Provider Department 05/11/24 [...] All of this care has happened in [place] so records are limited. She moved here recently to [place], [place]. Denies any wound healing or drainage [...] Hip Pain (more content not included)... Normal [facility] XR HIP 3V PELV+ AP/LAT RTon 05-11-2024 [...] calcified uterine fibroids. No other significant abnormality. --- IMPRESSION: Postoperative findings as described with intact hardware. Home Care Administrator: PSCB Transcribe Date/Time: May 11 2024 3:48P Dictated by : KHANH MOSS MD This examination was interpreted and the report reviewed and electronically signed by: KHANH MOSS MD on May 11 2024 3:49PM EST [id number] Normal [facility] XR Pelvis and Hip - right AP and Lateral frogon 05-11-2024 IMPRESSION: Postoperative findings as described with intact hardware. Home Care Administrator: PSCB Transcribe Date/Time: May 11 2024 3:48P [...] calcified uterine fibroids. No other significant abnormality. --- DIVISION OF RADIOLOGY Provider, Yamilka Nolasco - 05/11/2024 * * *Final Report* * [...] calcified uterine fibroids. No other significant abnormality. --- IMPRESSION IMPRESSION: Postoperative findings as described with intact hardware. Home Care Administrator: ALLI Transcribe Date/Time: May 11 2024 3:48P Dictated by : KHANH MOSS MD This examination was interpreted and the report reviewed and electronically signed by: KHANH MOSS MD on May 11 2024 3:49PM [facility] Radiology Study [facility]narrative[facility] - right AP and Lateral frogOrdered By: Ccf Provider on 05-11-2024 [facility] Tre 05-10-2024 CNPN Telephone (ORTHMN) LIZBET PADILLA ([id number]) 1955 F Date Time Provider Department 05/10/24 [...] Status:Closed by GRECIA SNYDER on 05/10/[address] [facility] Vital Signs Date Time Vital Sign Value Performing Clinician Dick yousif 05-11-2024 13:43-0500 Body height 160 cm Marily Be MD Work Phone: [facility] 05-11-2024 13:43-0500 Body mass index (BMI) [Ratio] 19.49 kg/m2 Marily Be MD Work Phone: [facility] 05-11-2024 13:43-0500 Body weight 49.9 kg Marily Be MD Work Phone: [facility] Encounters Encounter Date Encounter Type Care Provider Facility Start: 05-13-2025 ambulatory [facility] Facilit y:[facility] Start: 05-02-2025 ambulatory [facility] Facility:[facility] Start: 04-29-2025 Encounter for genera l adult medical examination without abnormal findings [facility] Start: 04-25-2025 End: 04-25-2025 ambulatory [facility] Facility:[facility] Start: 04-25-2025 End: 04-25-2025 ambulatory [facility] Facility:[facility] Start: 04-15-2025 End: 04-15-2025 ambulatory [facility] Facility:[facility] Start: 04-07-2025 End: 04-07-2025 ambulatory [facility] Facility:[facility] Start: 09-28-2024 End: 09-28-2024 ambulatory MARILY BE Facility:[facility] Start: 09-28-2024 End: 09-28-2024 Home visit est pt low-mod severity 25 minutes Marily Be MD Work Phone: Orthopaedics Comment on above: Status post right hi p replacement (Primary Dx); Primary osteoarthritis of right hip Start: 09-28-2024 End: 09-28-2024 Subsequent hospital visit by physician Brijesh Gilman [facility] Rej Work Phone: Radiology Comment on above: Status post right hi p replacement [Z96.641] Start: 06-11-2024 End: 06-11-2024 Telephone encounter Marily Be MD Work Phone: [facility] [place] Comment on above: HANDICAP RX MAILED Start: [...] Start: 06-01-2024 End: 06-01-2024 ambulatory MARILY BE Facility:[facility] Start: 06-01-2024 End: 06-01-2024 Subsequent hospital visit by physician [facility] Rej Work Phone: Radiology Comment on above: 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] Start: 05-25-2024 ambulatory UNKNOWN PROVIDER Facili ty:[facility] Start: 05-25-2024 End: 05-25-2024 Subsequent hospital visit by physician [facility] 1 Work Phone: Molecular Imaging Comment on above: Stress fracture of s haft of right femur, initial encounter [M84.351A] Start: 05-25-2024 ambulatory UNKNOWN PROVIDER Facili ty:[facility] Start: 05-25-2024 End: 05-25-2024 Subsequent hospital visit by physician [facility] 1 Work Phone: Molecular Imaging Comment on above: Stress fracture of s haft of right femur, initial encounter [M84.351A] Start: 05-15-2024 End: 05-15-2024 Emergency department patient visit No Primary Care Physician Facility:[facility] Start: 05-13-2024 End: 05-13-2024 Orders Only Marily Be MD Work Phone: Orthopaedics Comment on above: Stress fracture of s haft of right femur, initial encounter (Primary Dx) Start: 05-12-2024 End: 05-12-2024 ambulatory MARILY BE Facility:[facility] Start: 05-11-2024 End: 05-11-2024 Subsequent hospital visit by physician [facility] Comment on above: Status post right hi p replacement [Z96.641] Start: 05-11-2024 End: 05-11-2024 ambulatory MARILY BE Facility:[facility] Start: 05-11-2024 End: 05-11-2024 Office outpatient [...] Radex hip unilateral with pelvis 2-3 views Gregg Isanti PA-C Work Phone: Start: 06-01-2024 Radex hip unilateral with pelvis 2-3 views Gregg Frank PA-C Work Phone: Start: 05-25-2024 Bone &/joint [...] Author Start: 01-25-2029 Lipid panel Lipid Screening [facility] Start: 2028 RSV Vaccine (1 - 1-d ose 75+ series) RSV Vaccine (1 - 1-dose 75+ series) [facility] Start: 01-25-2027 Diabetes Screening Diabetes Screenin g [facility] Start: 08-13-2024 End: 08-13-2024 Patient encounter procedure 08/13/2024 1:00 PM EST Office Visit Family Practice [address] [facility] [place] [address] Abdi Mclean MD [address] [facility] [place] [address] establishing a primary care doctor Family Practice Comment on above: establishing a prima ry care doctor Start: 07-20-2024 End: 07-20-2024 Patient encounter procedure 07/20/2024 1:00 PM EST Office Visit Family Practice [address] [facility] [place] [address] Abdi Mclean MD [address] [place] [address] [place] [address] establishing a primary care doctor Family Practice Comment on above: establishing a prima ry care doctor Start: 06-23-2024 Advance Directive Discussion Advance Directive Discussion [facility] Start: 05-12-2024 End: 05-12-2024 ambulatory 05/12/2024 2:45 PM EST Results Only [facility] [address] [facility] [place] [address] [facility] Start: 05-11-2024 End: 08-10-2024 C reactive protein [Mass/volume] in Serum or Plasma C-REACTIVE PROTEIN Lab Routine Status post right hip replacement Expected: 05/11/2024, Expires: 08/10/2024 [facility] Comment on above: Expected: 05/11/2024 , Expires: 08/10/2024 Start: 05-11-2024 End: 08-10-2024 CBC W Auto Differential panel - Blood COMPLETE BLOOD COUNT AND DIFFERENTIAL Lab Routine Status post right hip replacement Expected: 05/11/2024, Expires: 08/10/2024 [facility] Comment on above: Expected: 05/11/2024 , Expires: 08/10/2024 Start: 05-11-2024 End: 08-10-2024 Erythrocyte sedimentation rate SEDIMENTATION RATE, WESTERGREN Lab Routine Status post right hip replacement Expected: 05/11/2024, Expires: 08/10/2024 [facility] Comment on above: Expected: 05/11/2024 , Expires: 08/10/2024 Start: 05-11-2024 End: 05-11-2024 Patient encounter procedure 05/11/2024 2:00 PM EST Office Visit Orthopaedics [address] [address] [place] [address] [address] [place], [place] [id number] Unconfirmed reason for level 7 pain, 6 [...] imaging to appt) Start: 02-22-2024 Covid-19 Vaccine ( season) Covid-19 Vaccine ( season) [facility] Start: 02-22-2024 Covid-19 Vaccine ( season) Covid-19 Vaccine ( season) [facility] Start: 02-22-2024 Influenza vaccination Influenza Vacc ine (#1) [facility] Start: 06-23-2023 Advance Directive Discussion Advance Directive Discussion [facility] Start: 03-17-2020 Pneumococcal Vaccine : 50+ (2 of 2 - PCV) Pneumococcal Vaccine: 50+ (2 of 2 - PCV) [facility] Start: 03-17-2020 Pneumococcal Vaccine : 65+ (2 of 2 - PCV) Pneumococcal Vaccine: 65+ (2 of 2 - PCV) [facility] Start: 2018 Pneumococcal Vaccine : 65+ (1 of 1 - PCV) Pneumococcal Vaccine: 65+ (1 of 1 - PCV) [facility] Start: 2018 Screening for osteoporosis Bone Density Screening [facility] Start: 10-07-2003 Shingrix Vaccine (1 of 2) Shingrix Vaccine (1 of 2) [facility] Start: 1998 Diabetes Screening Diabetes Screenin g [facility] Start: 1998 Lipid panel Lipid Screening [facility] Start: 1998 Screening for malign ant neoplasm of colon [facility] Start: 1993 Screening for malign ant neoplasm of breast Mammogram Screening [facility] Start: 1972 Urine microalbumin profile DTaP,Tdap,Td Vaccine (1 - Tdap) [facility] Start: 10-07-1971 Anxiety Screening Anxiety Screening [facility] Start: 10-07-1971 Depression Screening Depression Scre ening [facility] Start: 10-07-1971 Hepatitis C screening Hepatitis C Sc reening [facility] End: 06-12-2025 NM Bone 3 Phase Views NM BONE 3 PHASE Radiology Routine Stress fracture of shaft of right femur, initial encounter 1 Occurrences starting 05/13/2024 until 06/12/2025 [facility] Work Phone: Comment on above: 1 Occurrences starti ng 05/13/2024 until 06/12/2025 End: 06-10-2025 XR Femur - right AP and Lateral XR FEMUR GENERAL 2V AP/LAT RIGHT Radiology Routine Status post right hip replacement S/P hardware removal 1 Occurrences starting 05/11/2024 until 06/10/2025 [facility] Work Phone: Comment on above: 1 Occurrences starti ng 05/11/2024 until 06/10/2025 Immunizations Immunization Date Immunization Notes [facility] influenza virus vacc ine, unspecified formulation Marily Be MD Work Phone: [facility] Payers Date Payer Category Payer Self-pay 2018 Private Health Insurance MILI MOISÉS [id number] 2018 Unknown [employer] [id number] 2018-Present [phone] [address] [place] [address] Indemnity [id number] 2018 Unknown [id number] 2018 Medicare [id number] 2018 Medicare [id number] Unknown [id number] Unknown [id number] Unknown [id number] Unknown [id number] Unknown [id number] Unknown [id number] Unknown [id number] Social History Date Type Detail Facility Tobacco smoking stat [facility] Tobacco smoking consumption unknown [facility] Start: 1955 Sex assigned at Not on file [facility] Start: 05-11-2024 End: 05-25-2024 Gender identity Not on file [facility] Start: 05-11-2024 Tobacco smoking stat [facility] Ex-smoker [facility] Start: 10-22-1967 End: 07-02-2023 History of tobacco use Current smoker [facility] Start: 10-22-1967 End: 07-02-2023 History of tobacco use Cigarette Smoker [facility] Start: 05-11-2024 End: 05-25-2024 Cigarettes smoked current (pack per day) - Reported 0.3 [facility] Start: 05-11-2024 Tobacco use and exposure Smokeless tobacco non-user [facility] Start: 05-11-2024 Alcoholic beverage intake Current drinker of alcohol (finding) [facility] National Score (1-100), lower number is lower risk 35 [facility] Start: 1955 Sex assigned at Female [facility] Start: 05-11-2024 Gender identity Identifies as female gender (finding) [facility] Start: 05-11-2024 Sexual orientation Heterosexual (fin ding) [facility] NEGATED: Highlighted rowStart: NINF History of tobacco use Passive smoker [facility] Clinical Notes 05-10-2024 to 09-28-2024 Kelsi Alaniz RT(R) - 09/28/2024 3:00 PM Marily Sloan MD - 09/28/2024 2:52 PM EDTTelephone Encounter - Yanet Coughlin - 06/11/2024 10:05 AM Marily Suarez [...] PATIENT PRESENTS WITH AN IMPLANTABLE OR ATTACHED GLOVE CUFFER: No RADIOLOGY DEPARTMENT: General X-ray: Exam(s) Completed: Pelvis X-Ray: Pelvis with Hip Right PERIPHERAL IV DATA: Not applicable SIGNED BY: RT Femi(R) September 28, 2024 2:57 PM documented in this encounter [facility] 09-28-2024 Note HNO ID: [id number] Author: KELSI ALANIZ RT(R) Service: Radiology Author Type: Technologist Type: Progress [...] PATIENT PRESENTS WITH AN IMPLANTABLE OR ATTACHED GLOVE CUFFER: No RADIOLOGY DEPARTMENT: General X-ray: Exam(s) Completed: Pelvis X-Ray: Pelvis with Hip Right PERIPHERAL IV DATA: Not applicable SIGNED BY: RT Femi(R) September 28, 2024 2:[address] [facility] 09-28-2024 Note HNO ID: [id number] Author: MARILY BE MD Service: ? 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 ALSO SENT MESSAGE WITH ATTACHED RX VIA MY CHART. [facility] 06-11-2024 Miscellaneous Notes HANDICAP RX PLACED IN OUT GOING MAIL. ALSO SENT MESSAGE WITH ATTACHED RX VIA MY CHART. documented in this encounter [facility] 06-10-[address] Be approved placard for Lizbet Ruthall. RN instructed to sign order for Dr. Be. [facility] 06-10-[address] Be approved placard for Lizbet Padilla. RN instructed to sign order for Dr. Be. documented in this encounter [facility] 06-01-2024 Note HNO ID: [id number] Author: MARILY BE MD Service: ? 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 [place] Risk Wristband Applied and Increased Observations by Caregivers PATIENT GENDER DATA: .female : No ALLERGIES: Reviewed and unchanged MEDICATIONS REVIEWED: Not applicable PATIENT RELEVANT IMPLANT DATA REVIEWED: Not Applicable PATIENT PRESENTS WITH AN IMPLANTABLE OR ATTACHED GLOVE CUFFER: No CREATININE: No results found for: CREAT, EGFROTH, EGFRAA P.O.C.T. RESULTS: N/A May 25, 2024 [...] safety can be found using this link: [email or web address] uclear%[email or web address] df SIGNATURE: JEFFERSON Rod PATIENT NAME: Lizbet Padilla DATE: May 25, 2024 TIME: 12:21 PM PAGER/CONTACT #: documented in this encounter [facility] 05-25-2024 Note HNO ID: [id number] Author: MARILY MOSQUERA CT Service: Nuclear Medicine [...] to prevent falls during this visit? [place] Risk Wristband Applied and Increased Observations by Caregivers PATIENT GENDER DATA: .female : No ALLERGIES: Reviewed and unchanged MEDICATIONS REVIEWED: Not applicable PATIENT RELEVANT IMPLANT DATA REVIEWED: Not Applicable PATIENT PRESENTS WITH AN IMPLANTABLE OR ATTACHED GLOVE CUFFER: No CREATININE: No results found for: CREAT, EGFROTH, EGFRAA P.O.C.T. RESULTS: N/A May 25, [address] PERFORMED: No IV SITE: Ambulatory: NM only - direct IV injection in the Right antecubital site POST EXAM PIV STATUS: Not applicable PROCEDURE TYPE: NM INJECT: bone flow. 21.9 mCi Tc99m MDP. No other medications given.. ADMINISTRATION TIME: 11:09 PATIENT DISCHARGED TO: Ambulatory patient, left [place] department area. Is this a therapy: No A Diagnostic radioactive procedure has taken place, with no further precautions necessary other than routine body substance precautions. More information regarding radiation safety can be found using this link: [email or web address] 20Diagnostic%20Nuclear%20Medicin [email or web address] SIGNATURE: JEFFERSON Rod PATIENT NAME: Lizbet Padilla DATE: May 25, 2024 TIME: 12:21 PM PAGER/CONTACT #: [facility] 05-11-2024 History of Presen t illness Narrative [...] PATIENT PRESENTS WITH AN IMPLANTABLE OR ATTACHED GLOVE CUFFER: No RADIOLOGY DEPARTMENT: General X-ray: Exam(s) Completed: Pelvis X-Ray: Pelvis with Hip Right PERIPHERAL IV DATA: Not applicable SIGNED BY: RT Shaniqua(Carlos A) May 11, 2024 2:55 PM documented in this encounter [facility] 05-11-2024 Note HNO ID: [id number] Author: CHAYO VOGEL RT(R) Service: ? Author Type: Technologist [...] PATIENT PRESENTS WITH AN IMPLANTABLE OR ATTACHED GLOVE CUFFER: No RADIOLOGY DEPARTMENT: General X-ray: Exam(s) Completed: Pelvis X-Ray: Pelvis with Hip Right PERIPHERAL IV DATA: Not applicable SIGNED BY: Chayo Vogel, RT(R) May 11, 2024 2:[address] [facility] 05-11-2024 Note HNO ID: [id number] Author: MARILY BE MD Service: ? Author [...] All of this care has happened in [place] so records are limited. She moved here recently to [place], [place]. Denies any wound healing or drainage [...] the past 2.5year(s (more content not included)... [facility] 05-11-2024 History of Presen t illness Narrative [...] All of this care has happened in [place] so records are limited. She moved here recently to [place], [place]. Denies any wound healing or drainage [...] years ago. She recently moved here from [facility], where she had her ORIF and RTHA. [...] place to prevent falls this visit: Placed Falling Man Sign on Door PROMIS Physical Function Score No [...] OBJECTIVE PHYSICAL EXAM Ht 160 cm (5' 3) Wt 49.9 kg (110 lb) BMI 19.49 [...] TIME: 1:40 PM documented in this encounter [facility] 05-10-2024 Telephone encounter Note Called patient regarding upcoming appt tomorrow with Dr. Be. Her imaging in within 6 months and OP notes are on the media she's bringing in. [facility] 05-10-2024 Miscellaneous Notes Called patient regarding upcoming appt tomorrow with Dr. Be. Her imaging in within 6 months and OP notes are on the media she's bringing in. documented in this encounter [facility] Evaluation note Diagnosis Status post right hip replacement- Primary Hip joint replacement by other means S/P hardware removal Other postprocedural status Pain of right hip Status post right hip replacement Hip joint replacement by other means Pain of right hip [facility] Status post right hip replacement Hip joint replacement by other means Pain of right hip [facility] Diagnosis Stress fracture of shaft of right femur, initial encounter- Primary [facility] Diagnosis Stress fracture of shaft of right femur, initial encounter [facility] Diagnosis Status post right hip replacement- Primary Hip joint replacement by other means Pain of right hip [facility] Diagnosis 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) [facility] Diagnosis Pain in right hip- Primary Pain in joint, pelvic region and thigh documented in this encounter [facility] note* Diagnosis Status post right hip replacement- Primary Hip joint replacement by other means Primary osteoarthritis of right hip Primary localized osteoarthrosis, pelvic region and thigh Status post right hip replacement Hip joint replacement by other means documented in this encounter [facility] note* Diagnosis Status post right hip replacement Hip joint replacement by other means [facility] ([facility] Diagnostic Procedure Only (Routine) - New Request Specialty Diagnoses / Procedures Referred By Brian t Referred To Contact XR IMAGING Diagnoses Status post right hip replacement S/P hardware removal Procedures XR FEMUR GENERAL 2V AP/LAT RIGHT RADIOLOGIC EXAMINATION FEMUR MINIMUM 2 [place] [address] [place] [address] X[facility] [place] [address] Referral ID Status Reason Start Date Expiration Date Visits Requested Visits Authorized [id number] New Request Auto-Generat ed Referral 06/10/2025 1 1 * Diagnostic Procedure Only (Routine) - Closed Specialty Diagnoses / Procedures Referred By Brian white Referred To Contact XR IMAGING Diagnoses Status post right hip replacement Pain of right hip Procedures XR HIP GENERAL 3V PELV/AP/LAT RIGHT RADEX HIP UNILATERAL WITH PELVIS 2-[place] [address] [place] [address] Xr Imaging [id number] Referral ID Status Reason Start Date Expiration Date V isits Requested Visits Authorized [id number] Closed Auto-Generate d Referral 05/11/2024 06/10/2025 1 1 [facility] (narrative[facility] Diagnostic Procedure Only (Routine) - Closed Specialty Diagnoses / Procedures Referred By Brian white Referred To Contact XR IMAGING Diagnoses Status post right hip replacement Pain of right hip Procedures XR HIP GENERAL 3V PELV/AP/LAT RIGHT RADEX HIP UNILATERAL WITH PELVIS 2-[place] [address] [place] [address] [place] [address] Referral ID Status Reason Start Date Expiration Date V isits Requested Visits Authorized [id number] Closed Auto-Generate d Referral 05/11/2024 06/10/2025 1 1 [facility] for referral (narrative)* Diagnostic Procedure Only (Routine) - New Request Specialty Diagnoses / Procedures Referred By Contac t Referred To Contact MOLECULAR & FUNCTIONAL IMAGING Diagnoses Stress fracture of shaft of right femur, initial encounter Procedures NM BONE 3 PHASE BONE &/JOINT IMAGING 3 [place] [address] [place] [phone] [facility] [address] [place] [address] Referral ID Status Reason Start Date Expiration Date Visits Requested Visits Authorized [id number] New Request Auto-Generat ed Referral 06/12/2025 1 1 [facility] for referral (narrative)* Diagnostic Procedure Only (Routine) - Closed Specialty Diagnoses / Procedures Referred By Contac t Referred To Contact MOLECULAR & FUNCTIONAL IMAGING Diagnoses Stress fracture of shaft of right femur, initial encounter Procedures NM BONE 3 PHASE BONE &/JOINT IMAGING 3 [place] [address] [place] [address] Molecular & Functional Imaging [address] [place], [place] [id number] Referral ID Status Reason Start Date Expiration Date V isits Requested Visits Authorized [id number] Closed Auto-Generate d Referral 05/13/2024 06/12/2025 1 1 [facility] for referral (narrative)* Diagnostic Procedure Only (Routine) - Closed Specialty Diagnoses / Procedures Referred By Contac t Referred To Contact XR IMAGING Diagnoses 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) Procedures XR HIP GENERAL 3V PELV/AP/LAT RIGHT RADEX HIP UNILATERAL WITH PELVIS 2-3 VIEWS Gregg Willard PA-C [address] [id number] Xr Imaging [place] [address] Referral ID Status Reason Start Date Expiration Date V isits Requested Visits Authorized [id number] Closed Auto-Generate d Referral 05/28/2024 06/27/2025 1 1 [facility] Narrative* Diagnostic Procedure Only (Routine) - Closed Specialty Diagnoses / Procedures Referred By Contac t Referred To Contact MOLECULAR & FUNCTIONAL IMAGING Diagnoses Stress fracture of shaft of right femur, initial encounter Procedures NM BONE 3 PHASE BONE &/JOINT IMAGING 3 [place] [address] [place] [phone] Molecular [facility] [address] [place] [address] Referral ID Status Reason Start Date Expiration Date V isits Requested Visits Authorized [id number] Closed Auto-Generate d Referral 05/13/2024 06/12/2025 1 1 [facility] Summary Purpose Family History No Family [...] HIGH COMPLEX 45 [place] [address] [place] [phone] [facility] [address] [phone] Referral ID Status Reason Start Date Expiration Date Visits Requested Visits Authorized [id number] Authorized PCP Requested Referral Auto-Generate d Referral 06/01/2025 99 99 Additional Source Comments Source Comments (unrecognize d section and content) In the event this informatio n is protected by the Federal Confidentiality of Alcohol and Drug Abuse Patient Records regulations: The Federal rules restrict any use of the information to criminally investigate or prosecute any alcohol or drug abuse patient.[facility] event this information is protected by the Federal Confidentiality of Alcohol and Drug Abuse Patient Records regulations: The Federal rules restrict any use of the information to criminally investigate or prosecute any alcohol or drug abuse patient.[facility] the event this information is protected by the Federal Confidentiality of Alcohol and Drug Abuse Patient Records regulations: The Federal rules restrict any use of the information to criminally investigate or prosecute any alcohol or drug abuse patient.[facility] the event this information is protected by the Federal Confidentiality of Alcohol and Drug Abuse Patient Records regulations: The Federal rules restrict any use of the information to criminally investigate or prosecute any alcohol or drug abuse patient.[facility] the event this information is protected by the Federal Confidentiality of Alcohol and Drug Abuse Patient Records regulations: The Federal rules restrict any use of the information to criminally investigate or prosecute any alcohol or drug abuse patient.[facility] the event this information is protected by the Federal Confidentiality of Alcohol and Drug Abuse Patient Records regulations: The Federal rules restrict any use of the information to criminally investigate or prosecute any alcohol or drug abuse patient.[facility] Hospital[facility] the event this information is protected by the Federal Confidentiality of Alcohol and Drug Abuse Patient Records regulations: The Federal rules restrict any use of the information to criminally investigate or prosecute any alcohol or drug abuse patient.[facility] Hospital[facility] the event this information is protected by the Federal Confidentiality of Alcohol and Drug Abuse Patient Records regulations: The Federal rules restrict any use of the information to criminally investigate or prosecute any alcohol or drug abuse patient.[facility] Hospital[facility] the event this information is protected by the Federal Confidentiality of Alcohol and Drug Abuse Patient Records regulations: The Federal rules restrict any use of the information to criminally investigate or prosecute any alcohol or drug abuse patient.[facility] Hospital[facility] the event this information is protected by the Federal Confidentiality of Alcohol and Drug Abuse Patient Records regulations: The Federal rules restrict any use of the information to criminally investigate or prosecute any alcohol or drug abuse patient.[facility] Hospital[facility] the event this information is protected by the Federal Confidentiality of Alcohol and Drug Abuse Patient Records regulations: The Federal rules restrict any use of the information to criminally investigate or prosecute any alcohol or drug abuse patient.[facility] Hospital[facility] the event this information is protected by the Federal Confidentiality of Alcohol and Drug Abuse Patient Records regulations: The Federal rules restrict any use of the information to criminally investigate or prosecute any alcohol or drug abuse patient.[facility] Reason for Visit (unrecogniz ed section and content) Reason Comments Appointment Reason Comments New Patient Pain Reason Comments Radio Gen A21 Specialty Diagnoses / Procedures Referred By Contac t Referred To Contact XR IMAGING Diagnoses Status post right hip replacement Pain of right hip Procedures XR HIP GENERAL 3V PELV/AP/LAT RIGHT RADEX HIP UNILATERAL WITH PELVIS 2-[place] [address] [place] [address] [place] [address] Referral ID Status Reason Start Date Expiration Date V isits Requested Visits Authorized [id number] Closed Auto-Generate d Referral 05/11/2024 06/10/2025 1 1 Reason Comments New Reason Comments Radiology XR Specialty Diagnoses / Procedures Referred By Contac t Referred To Contact XR IMAGING Diagnoses 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) Procedures XR HIP GENERAL 3V PELV/AP/LAT RIGHT RADEX HIP UNILATERAL WITH PELVIS 2-3 VIEWS Gregg Willard PA-C [address] [phone] [place] [address] Referral ID Status Reason Start Date Expiration Date V isits Requested Visits Authorized [id number] Closed Auto-Generate d Referral 05/28/2024 06/27/2025 1 1 Reason Comments HANDICAP RX MAILED Reason Comments Follow Up Specialty Diagnoses / Procedures Referred By Contac t Referred To Contact XR IMAGING Diagnoses Status post right hip replacement Procedures XR HIP GENERAL 3V PELV/AP/LAT RIGHT RADEX HIP UNILATERAL WITH PELVIS 2-3 VIEWS Gregg Willard PA-C [address] [address] Phone: tel: fax: [place] [address] Referral ID Status Reason Start Date Expiration Date V isits Requested Visits Authorized [id number] Closed Auto-Generate d Referral 09/27/2024 10/27/2025 1 1 Care Teams (unrecognized sec tion and content) Implementation Consultant Relationship Specialty Start Date End Date Lavern Malcolm [address] [place] [address] Referring Internal Medicine 03/19/24 Implementation Consultant Relationship Specialty Start Date End Date Malcolm Lavern Ahsan [address] [place] [address] Referring Internal Medicine 03/19/24 Implementation Consultant Relationship Specialty Start Date End Date Malcolm Lavern Ahsan [address] [place] [address] Referring Internal Medicine 03/19/24 Implementation Consultant Relationship Specialty Start Date End Date Malcolm Lavern Ahsan [address] [place] [address] Referring Internal Medicine 03/19/24 Implementation Consultant Relationship Specialty Start Date End Date MalcolmIleana zepedaa Ahsan [address] [place] [address] Referring Internal Medicine 03/19/24 Implementation Consultant Relationship Specialty Start Date End Date Lavenr Malcolm Ahsan [address] [place] [address] Referring Internal Medicine 03/19/24 Implementation Consultant Relationship Specialty Start Date End Date Malcolm, Lavern Ahsan [address] [place] [address] Referring Internal Medicine 03/19/24 Implementation Consultant Relationship Specialty Start Date End Date Gold Lavern Ahsan [address] [place] [address] Referring Internal Medicine 03/19/24 INFORMATION SOURCE (unrecogn ized section and content) DATE CREATED AUTHOR 05/27/2024 [facility] DATE CREATED AUTHOR AUTHOR'S ORGANIZ ATION 10/13/2024 [facility] DATE CREATED AUTHOR AUTHOR'S ORGANIZ ATION 05/05/2025 [facility] FOR RECORDS PERTAINING TO PATIENTS WHO ARE [...] BE BASED ON THE PRIMARY CLINICAL RECORDS. [employer] [facility]. provides no warranty or guarantee of the accuracy or completeness of information in this document.
== END | disposition home or self-care (01) ==
LOC: MRI 14:46
PROVIDERS: PCP Family Medicine; Referring Provider Surgery; Visit Provider Surgery
DX: C50.912 Malignant neoplasm of unspecified site of left female breast (principal)
CPT/HCPCS: 77049; A9575; A4216; C8908

== ENCOUNTER 2025-05-30 10:36 | Day surgery (SDC) | payer MEDICARE, OTHER, SELFPAY ==
[2025-05-30] VITALS (10 sets, daily range): BP systolic 122–142; BP diastolic 55–85; PULSE 71–88; RESP 14–18; TEMP 36.6–36.9; O2SAT 92–98; BMI 22.6
--- NOTE | 2025-05-30 10:48 | PRE.ANES_ITS ---
ASA Classification* ASA Classification ASA Classification: 2 Assessment & Plan Anesthesia* Anesthesia Assessment Anesthesia Assessment: Discussed sedation and/or anesthesia options, risks, benefits, and alternatives with patient/parents/legal guardian/POA. Questions invited. The patient/parents/legal guardian/POA seems to understand and agrees to proceed with anesthesia plan. Reviewed the physical assessment, medical history, allergy history and patient home medications list prior to surgery/procedure/anesthetic and documented any changes. Performed airway and anesthesia risk assessments. Anesthesia Type Anesthesia Type: General Anesthesia Focused Assessment* Airway Assessment Mouth opens: >3 cm Mallampati Score: II Labs Anesthesia Preop lab: CBC WBC, (4.4-11.0) 6.9 K/mm3 05/02/25, 13:38 RBC, (4.2-5.4) 4.38 M/mm3 05/02/25, 13:38 Hgb, (12.0-15.0) 13.9 g/dL 05/02/25, 13:38 Hct, (37-47) 41.3 % 05/02/25, 13:38 Plt Count, (150-450) 349 K/mm3 05/02/25, 13:38 CHEMISTRY Potassium, (3.3-5.1) 4.4 mmol/L 05/02/25, 13:38 Sodium, (133-145) 142 mmol/L 05/02/25, 13:38 BUN, (4-19) 16 mg/dL 05/02/25, 13:38 Creatinine, (0.70-1.20) 1.09 mg/dL 05/02/25, 13:38 Glucose, (70-99) 91 mg/dL 05/02/25, 13:38 COAG Pre-Assessment Diagnosis/Proposed Procedure Planned Operative Procedure(s): LEFT U/S GUIDED WIRE LUMPECTOMY SLN BX BLUE DYE POSS AXILLARY NODE DISSECTION Anesthesia History 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 When Was Last Pacemaker Check QUESTION #4 FULL TEXT: You/Your Family Experience fever (hyperthermia) with Anesthesia Last Oral Intake Last Oral intake: Last Oral Intake NPO since Meds taken in AM with sips of water? Meds patient instructed to take am of surgery PONV PONV - children's librarian: PONV - children's librarian Female Yes 05/17/25 13:23 HX of Motion Sickness No 05/17/25 13:23 HX of N/V After Surgery No 05/17/25 13:23 Non-Smoker Yes 05/17/25 13:23 Duration of Surgery greater Yes 05/17/25 13:23 than 60 minutes Number of Risk Factors 3 05/17/25 13:23 PONV Score Moderate Risk 05/17/25 13:23 Height & Weight Height & Weight: Anesthesia: Height & Weight Height 5 ft 3 in 04/25/25 14:40 Respiratory Assessment Respiratory Assessment - children's librarian: Respiratory Tract Infection Hx - children's librarian Hx Respiratory Tract Infection No 05/17/25 13:23 STOP Sleep Apnea STOP Sleep Apnea - children's librarian: STOP Sleep Apnea - children's librarian Hx Hypertension Yes: NO MEDS SINCE 202105/17/25 13:23 Hx Sleep Apnea No 05/17/25 13:23 CPAP BIPAP Do you snore loudly (louder No 05/17/25 13:23 than talking or can be heard Do you often feel tired/ No 05/17/25 13:23 fatigued/ sleepy during daytime? Has anyone observed you stop No 05/17/25 13:23 breathing during sleep? STOP Results Negative 05/17/25 13:23 QUESTION #5 FULL TEXT : Do you snore loudly (louder than talking or can be heard through closed doors)? Tobacco Use History Tobacco Use History - children's librarian: Tobacco Use History - children's librarian Tobacco Use Smoking Status Former smoker 05/17/25 13:23 Hx Tobacco Use No 05/17/25 13:23 Years Smoking Packs Smoked per Day Smoking Cessation Date was Yes - quit smoking within 15 05/17/25 13:23 within the last 15 years years Hx Smoking Cessation Date 06/23/21 05/17/25 13:23 Hx Smoking Cessation No 05/17/25 13:23 Counseling Hematologic Medial History Hematologic Hx - children's librarian: Hematologic Medical Hx - other spatial scientist Hx of Blood Transfusion Yes 05/17/25 13:23 Hx of Transfusion in last 3 No 05/17/25 13:23 Months Date of Last Transfusion (if within last 3 months) Ever experience any problems No 05/17/25 13:23 with transfusion(s)? Specify any problems Hx of Preganancy in last 3 No 05/17/25 13:23 Months Nurse Filling Out Transfusion DSCHRIBER 05/17/25 13:23 & Questions: Date: 05/17/25 05/17/25 13:23 Time: 13:24 05/17/25 13:23 Patient unable to answer at this time (ie. confused, unrespo /Reproduction History /Reproductive History - children's librarian: /Reproductive Hx- children's librarian Hx Now No 05/17/25 13:23 Gestational Age (in weeks): EDC: Hx Hx Para Hx Section SAB No 05/17/25 13:23 Does the father of the baby or his family experience fever w Father of the baby Malignant Hypertension history comment Active Medications Active Medications: Current Medications Generic Name Dose Route Start Last Admin Trade Name Freq PRN Reason Stop Dose Admin Lactated Ringer's 1,000 mls @ 15 mls/hr 05/30/25 10:45 IV .Q48H NITO PFSH Medical History Loss of hearing Wears glasses Post-menopausal Alcohol use Ambulates with cane Easy bruising High cholesterol Injury of head and neck Former smoker Shortness of breath on exertion History of pain when walking History of stress test Cardiology follow-up encounter Hx of fracture of wrist Hx of fracture of femur Anxiety Depression Hypertension Home Medications ?Medication ?Instructions ?Recorded ?Last Taken ?Type atorvastatin 10 mg tablet (Lipitor) 10 mg PO QHS 04/25 Unknown History bupropion HCl 150 mg 24 hr tablet, 150 mg PO QAM 04/25 Unknown History extended release (Wellbutrin XL) vitamins A,C,L-nsop-oxwgdq 4,296 1 cap PO QDAY 5 Unknown History mcg-226 mg-90 mg capsule (PreserVision AREDS) Allergy/AdvReac Type Severity Reaction Status Date / Time No Known Allergies Allergy Verified 05/17/25 13:20 Family History Grandmother Breast cancer was in her 60's Maternal Grandmother Breast cancer in her 60's Aunt Breast cancer, Onset Age: 50 Father Heart disease Hypertension Surgical History Hx of right cataract extraction Hx of left cataract extraction Hx of colonoscopy History of hip replacement Social History Smoking Status: Never smoker Review of Systems (Anesthesia) ROS Narrative System reviewed and no additional complaints, except as documented.
--- NOTE | 2025-05-30 10:54 | HP.PCM.SX_ITS ---
HPI - General General Date of Service: 05/30/25 HPI Narrative CHASE CARRASCO, is a 69 F who presents for a left ultrasound-guided wire localization lumpectomy, sentinel lymph node biopsy with Lymphoseek and Lymphazurin due to invasive ductal carcinoma. ======== MICROSCOPIC DIAGNOSIS A. 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 - Tubule 3, nuclear 3, mitosis 2. - ER: positive (95%, strong intensity) - PA: positive (80%, strong intensity) - HER2 IHC: equivocal (score 2+) - HER2 FISH: pending at [facility], to be reported in an addendum. - Ki67: 40% B. Left breast, 4:00, 2 CMFN, core biopsy: - Benign breast tissue with predominant dense fibrosis. C. Left axillary lymph node, core biopsy: - Lymphoid tissue negative for metastasis. - IHC for pankeratin and ER support the histologic impression [facility], [facility] Medical History Loss of hearing Wears glasses Post-menopausal Alcohol use Ambulates with cane Easy bruising High cholesterol Injury of head and neck Former smoker Shortness of breath on exertion History of pain when walking History of stress test Cardiology follow-up encounter Hx of fracture of wrist Hx of fracture of femur Anxiety Depression Hypertension Home Medications ?Medication ?Instructions ?Recorded ?Last Taken ?Type atorvastatin 10 mg tablet (Lipitor) 10 mg PO QHS 04/25 Unknown History bupropion HCl 150 mg 24 hr tablet, 150 mg PO QAM 04/2505/30/25 06:45 History extended release (Wellbutrin XL) vitamins A,C,I-pozj-oiqcyu 4,296 1 cap PO QDAY 5 Unknown History mcg-226 mg-90 mg capsule (PreserVision AREDS) Allergy/AdvReac Type Severity Reaction Status Date / Time No Known Allergies Allergy Verified 05/30/25 11:00 Family History Grandmother Breast cancer was in her 60's Maternal Grandmother Breast cancer in her 60's Aunt Breast cancer, Onset Age: 50 Father Heart disease Hypertension Surgical History Hx of right cataract extraction Hx of left cataract extraction Hx of colonoscopy History of hip replacement Social History Smoking Status: Never smoker Physical Exam Const alert, oriented x3 and no apparent distress HEENT normocephalic and head/scalp atraumatic Resp normal respiratory effort Cardio regular rate GI soft to palpation; Negative for non-distended Extremity no clubbing, cyanosis or edema Skin no rashes or lesions noted Neuro CN's II-XII intact bilaterally Psych mental status grossly normal Assessment & Plan Assessment/Plan (1) Cancer of left breast: PLAN: Plan I have given the patient options for initial surgical treatment. Options are the following: lumpectomy followed by radiation therapy vs. mastectomy vs. mastectomy followed by immediate reconstruction. I have described the procedures to the patient. I have described the advantages and disadvantages of the options, but I have told the patient that among the options, the survival rate for breast cancer is the same. Patient plans to do an ultrasound-guided left breast lumpectomy did discuss possibly doing the second spot at 4:00 but it was dense tissue and MRI was negative at this area patient prefers just to do the lumpectomy at the known cancer location at 1130 I have told the patient that with all the surgeries that a sentinel lymph node biopsy is required. I have described the procedure of sentinel lymph node biopsy to the patient. I have told the patient that if the biopsy is positive for metastatic disease, then a full axillary lymph node dissection is required. I have told the patient that adjuvant chemotherapy will be required should the lymph nodes reveal metastatic disease. Also, a full lymph node dissection will increase the risk for lymphedema, especially if there are 4 or more lymph nodes positive for metastatic disease and radiation to the axilla is also required. I have told the patient the risks of surgery, including but not limited to: infection, bleeding, scar tissue, seroma and persistent seroma, lymph leak, injury to any blood vessels, injury to any nerves (particularly the long thoracic, the thoracodorsal, and the second intercostal brachial and the resultant sequelae), lymphedema, cosmetic deformity, dysesthesias, wound infections, further surgery (especially if margins are not clear), complications of anesthesia, etc. the patient understands. I have answered all the patient?s questions at this point to her satisfaction and she has no further questions. Martina Mir M.D. Pager: [phone] [facility] [address] [place] [address] [address] [place] [address] Office: [phone]
--- NOTE | 2025-05-30 11:08 | NM_ITS ---
PROCEDURE: LYMPH NODE INJECTION ONLY 05/30/2025 REASON FOR EXAM: LEFT BREAST CANCER TECHNIQUE: Procedure Code: [id number] Modality: NM Procedure: LYMPH NODE INJECTION ONLY 586 uCi of Lymphoseek was injected 1 cm above the left nipple subdermally. RADIOPHARMACEUTICAL DOSE: 586 uCi. COMPARISON: None FINDINGS: 586 uCi of Lymphoseek was injected subdermally 1 cm above the left nipple for sentinel node imaging. NM/Lymph Node Injection Only IMPRESSION: Successful subdermal injection of 586 uCi of Lymphoseek for sentinel node imagi ng. Reading Location: [place] [address]
[2025-05-30] MEDS: Lactated Ringers 1,000 ML 15 ML IV (11:14)
--- NOTE | 2025-05-30 11:44 | PRE.ANES_ITS ---
ASA Classification* ASA Classification ASA Classification: 2 Assessment & Plan Anesthesia* Anesthesia Assessment Anesthesia Assessment: Discussed sedation and/or anesthesia options, risks, benefits, and alternatives with patient/parents/legal guardian/POA. Questions invited. The patient/parents/legal guardian/POA seems to understand and agrees to proceed with anesthesia plan. Reviewed the physical assessment, medical history, allergy history and patient home medications list prior to surgery/procedure/anesthetic and documented any changes. Performed airway and anesthesia risk assessments. Anesthesia Type Anesthesia Type: General Anesthesia Focused Assessment* Temperature: 97.8 F Pulse Rate: 71 Blood Pressure: 131/55 Respiratory Rate: 14 Pulse Ox: 98 Airway Assessment Mouth opens: >3 cm Mallampati Score: II Labs Anesthesia Preop lab: CBC WBC, (4.4-11.0) 6.9 K/mm3 05/02/25, 13:38 RBC, (4.2-5.4) 4.38 M/mm3 05/02/25, 13:38 Hgb, (12.0-15.0) 13.9 g/dL 05/02/25, 13:38 Hct, (37-47) 41.3 % 05/02/25, 13:38 Plt Count, (150-450) 349 K/mm3 05/02/25, 13:38 CHEMISTRY Potassium, (3.3-5.1) 4.4 mmol/L 05/02/25, 13:38 Sodium, (133-145) 142 mmol/L 05/02/25, 13:38 BUN, (4-19) 16 mg/dL 05/02/25, 13:38 Creatinine, (0.70-1.20) 1.09 mg/dL 05/02/25, 13:38 Glucose, (70-99) 91 mg/dL 05/02/25, 13:38 COAG Pre-Assessment Diagnosis/Proposed Procedure Planned Operative Procedure(s): LEFT U/S GUIDED WIRE LUMPECTOMY SLN BX BLUE DYE POSS AXILLARY NODE DISSECTION Anesthesia History 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 When Was Last Pacemaker Check QUESTION #4 FULL TEXT: You/Your Family Experience fever (hyperthermia) with Anesthesia Last Oral Intake Last Oral intake: Last Oral Intake NPO since 05:30 05/30/25 11:01 Meds taken in AM with sips of Yes 05/30/25 11:01 water? Meds patient instructed to take am of surgery PONV PONV - elevator installer: PONV - elevator installer Female Yes 05/17/25 13:23 HX of Motion Sickness No 05/17/25 13:23 HX of N/V After Surgery No 05/17/25 13:23 Non-Smoker Yes 05/17/25 13:23 Duration of Surgery greater Yes 05/17/25 13:23 than 60 minutes Number of Risk Factors 3 05/17/25 13:23 PONV Score Moderate Risk 05/17/25 13:23 Height & Weight Height & Weight: Anesthesia: Height & Weight Height 5 ft 2 in 05/30/25 11:01 Weight: 56.3 kg 05/30/25 11:01 Body Mass Index (BMI) 22.6 05/30/25 11:01 Respiratory Assessment Respiratory Assessment - elevator installer: Respiratory Tract Infection Hx - elevator installer Hx Respiratory Tract Infection No 05/17/25 13:23 STOP Sleep Apnea STOP Sleep Apnea - elevator installer: STOP Sleep Apnea - elevator installer Hx Hypertension Yes: NO MEDS SINCE 202105/17/25 13:23 Hx Sleep Apnea No 05/17/25 13:23 CPAP BIPAP Do you snore loudly (louder No 05/17/25 13:23 than talking or can be heard Do you often feel tired/ No 05/17/25 13:23 fatigued/ sleepy during daytime? Has anyone observed you stop No 05/17/25 13:23 breathing during sleep? STOP Results Negative 05/17/25 13:23 QUESTION #5 FULL TEXT : Do you snore loudly (louder than talking or can be heard through closed doors)? 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 Specify any problems Hx of Preganancy in last 3 No 05/17/25 13:23 Months Nurse Filling Out Transfusion DSCHRIBER 05/17/25 13:23 & Questions: Date: 05/17/25 05/17/25 13:23 Time: 13:24 05/17/25 13:23 Patient unable to answer at this time (ie. confused, unrespo /Reproduction History /Reproductive History - elevator installer: /Reproductive Hx- elevator installer Hx Now No 05/17/25 13:23 Gestational Age (in weeks): EDC: Hx Hx Para Hx Section SAB No 05/17/25 13:23 Does the father of the baby or his family experience fever w Father of the baby Malignant Hypertension history comment Active Medications Active Medications: Current Medications Generic Name Dose Route Start Last Admin Trade Name Freq PRN Reason Stop Dose Admin Lactated Ringer's 1,000 mls @ 15 mls/hr 05/30/25 10:45 05/30/25 11:14 IV 15 mls/hr .Q48H NITO Administration PFSH Medical History Loss of hearing Wears glasses Post-menopausal Alcohol use Ambulates with cane Easy bruising High cholesterol Injury of head and neck Former smoker Shortness of breath on exertion History of pain when walking History of stress test Cardiology follow-up encounter Hx of fracture of wrist Hx of fracture of femur Anxiety Depression Hypertension Home Medications ?Medication ?Instructions ?Recorded ?Last Taken ?Type atorvastatin 10 mg tablet (Lipitor) 10 mg PO QHS 04/25 Unknown History bupropion HCl 150 mg 24 hr tablet, 150 mg PO QAM 04/2505/30/25 06:45 History extended release (Wellbutrin XL) vitamins A,C,E-qosm-yjgkda 4,296 1 cap PO QDAY 5 Unknown History mcg-226 mg-90 mg capsule (PreserVision AREDS) Allergy/AdvReac Type Severity Reaction Status Date / Time No Known Allergies Allergy Verified 05/30/25 11:00 Family History Grandmother Breast cancer was in her 60's Maternal Grandmother Breast cancer in her 60's Aunt Breast cancer, Onset Age: 50 Father Heart disease Hypertension Surgical History Hx of right cataract extraction Hx of left cataract extraction Hx of colonoscopy History of hip replacement Social History Smoking Status: Never smoker Review of Systems (Anesthesia) ROS Narrative System reviewed and no additional complaints, except as documented.
--- NOTE | 2025-05-30 12:30 | BREAST_PTH ---
PATIENT: CHASE CARRASCO [place] [facility] [place][id number] AGE/SX: 69/F ROOM: RE05/30/[address]: Dr. Martina Mir MD : 1955 BED: DIS: 05/30/2025 SPEC #: [id number] RECD: 05/30/25 14:13 STATUS: BRYCE REQ #: [id number] CARINA: 05/30/25 12:[address]: Martina Mir DEPT: SURGICAL PATHOLOGY RECD BY: Reginaldo Diallo ENTERED: 05/31/25 09:15 SP TYPE: BREAST OTHR DR: Onel Solorzano MD Tissues: A - Lymph node, NOS B - Left breast, NOS Procedures: Frozen Section (charge) Immunohistochemical Stains Surgery Specimen Level V IHC Stain ADDITIONAL HEADER OPERATION: Ultrasound guided wire localization left breast, lumpectomy, sentinel node, biopsy PRE-OP DIAGNOSIS: Cancer of left breast TISSUE SUBMITTED: A- Left breast sentinel lymph node, B- Left breast mass * long stitch- middle of lateral, short stitch- middle of superior* FROZEN SECTION DIAGNOSIS A. Left breast, sentinel lymph node, excision: #1. Negative for macrometastasis. #2. Negative for macrometastasis. MS/mr 05/30/2025 MICROSCOPIC DIAGNOSIS A. [place] lymph node x2, left breast, excision: - One lymph node positive for isolated tumor cells. - One lymph node negative for metastasis. - IHC for pankeratin supports the histologic impression. B. 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 - Grade 3 (tubule 3, nuclear 3, mitosis 2) - No definitive lymphovascular invasion identified. - pT1c pN0 (i+) - IHC for E-cadherin, CK5/6, p40, and ERG support the histologic impression. - See Synoptic Report. SYNOPTIC REPORT FOR INVASIVE BREAST CARCINOMA Specimen (P=partial, M=mastectomy):?P Laterality (R=right, L=left):?L Focality (U=unifocal, M=multifocal):?U Tumor size (cm):?1.4 cm Histologic type:?invasive ductal carcinoma with focal mucinous features Histologic grade:?3 ??? Tubule score (1-3):?3 ??? Nuclear score (1-3):?3 ??? Mitotic score (1-3):?2 Skin, nipple epidermis, skeletal muscle (I=involved, N=negative, NA=not applicable):?NA Lymphovascular invasion (E=extensive, F=focal, N=not identified):?N Margins of main specimen (P=positive, N=negative):?N Distance to closest margin of main specimen (mm):?4 mm Designation of closest margin of main specimen:?inferior and superior (both 4 mm margins) Designation of other margins of main specimen </=1 mm:?NA Re-resection margin status (P=positive, N=negative, NA=not applicable):?NA ? DCIS (P=present, N=not identified):?P ?? Nuclear grade:?intermediate ?? Comedo necrosis (P=present, N=not identified):?N ?? Extensive intraductal component (P=present, N=not identified):?N ?? Margins of main specimen (P=positive, N=negative):?N ?? Distance to closest margin of main specimen (mm):?1.5 mm ?? Designation of closest margin of main specimen:?inferior ?? Designation of other margins of main specimen </=2 mm:?NA ???Longest span </= 2 mm to margin of main specimen (mm):?1 mm ?? Re-resection margin status (P=positive, N=negative, NA=not applicable):?NA ? Regional lymph nodes: ?? Total number of lymph nodes:?2 ???Number of sentinel lymph nodes:?2 ?? Number with macrometastases:?0 ?? Number with micrometastases:?0 ?? Number with isolated tumor cells:?1 ???Size of largest sunny metastasis (mm):?NA ?? Size of extranodal extension (mm) (N=not identified):?NA ? Estrogen receptor:?positive (95%, strong intensity) Progesterone receptor:?positive (80%, strong intensity) HER2 IHC:?equivocal (score 2+) HER2 FISH:?negative (performed at [facility]) Ki67: 40% Specimen in which ER/PA/HER2 performed:?[id number] pTNM:?pT1c pN0 (i+) Additional findings:?microcalcifications Comment:?A radiograph of the breast specimen was utilized to assist in the sectioning of the specimen. ? The above synoptic report complies, in slightly modified form, with the guidelines of the [employer] and the Association of Directors of Anatomic and Surgical Pathology for the reporting of cancer specimens ? MICROSCOPIC DESCRIPTION Slides are reviewed. All matched controls reacted appropriately. These tests were developed and their performance characteristics determined by [facility]. They may not have been cleared or approved by the U.S. Food and Drug Administration. The FDA has determined that such clearance or approval is not necessary. The above immunohistochemical markers and/or special?stains have been reviewed by the Pathologist. GROSS DESCRIPTION A. Received fresh for frozen section diagnosis labeled the patient's name and date of . Designated as left breast sentinel lymph node is an aggregate of fat containing 2 lymph nodes as follows: Lymph node #1: 0.5 x 0.4 x 0.3 cm, bisected, devoid of blue dye.Lymph node #2: 2.5 x 1.2 x 0.6 cm, serially section, devoid of blue dye. The lymph nodes are entirely submitted for frozen section diagnosis and the specimen is entirely submitted for permanent sections as follows: A1: Lymph node #1A2-A3: Lymph node #2A4: Fat B. Received fresh labeled with the patient's name and date of . Designated as left breast mass (see comments) is a 6.0 x 4.0 x 2.0 cm lumpectomy specimen with exposed localization wire on the inferolateral aspect. There is a short suture designated as middle of superior and a long suture designated as middle of lateral. Skin is not present. The specimen is inked as follows: Superior: RedInferior: BlueMedial: YellowLateral: OrangeAnterior: GreenPosterior: Black The specimen is serially sectioned from medial to lateral (into 11 slices) revealing fibrofatty cut surfaces (70% fibrotic, 30% fatty) and a 1.4 x 1.4 x 0.7 cm booth-white, indurated mass with irregular borders, spanning slices #8-#10. A ribbon biopsy clip is identified within the mass in slice # 9. There is dense fibrosis surrounding the mass. The mass is located the following distances from each margin: Anterior: <0.1 cmInferior: 0.3 cmMedial: >2.0 cmLateral: 0.5 cmPosterior: 0.6 cmSuperior: <0.1 cm Review of postoperative imaging confirms the presence of both a localization wire and biopsy clip. Manufacturing Accountant sections are submitted, sequentially from slice #1 (medial) to slice #11 (lateral) as follows:B1: Slice #1, medial margin, perpendicular (yellow)B2: Slice #3, fibrosis with superior/posterior/inferior (red/black/blue)B3: Slice #5, fibrosis with superior/inferior (red/blue)B4-B5: Slice #8, mass to superior/anterior/inferior/posterior (red/green/blue/black)B6: Slice #7, mass with biopsy site to superior/anterior/inferior (red/green/blue)B7: Slice #9, mass to inferior/anterior (blue/green)B8: Slice #10, mass to superior/inferior/posterior (red/black/blue)B9-B10: Slice #11, lateral margin, perpendicular (orange) Cold ischemic time: 11 minutesFormalin fixation time: 28 hours, 55 minutes AL 05/31/2025 CPT:[id number]
[2025-05-30] MEDS: Midazolam 2 MG/2 ML Syringe IV (13:20)
[2025-05-30] MEDS: Lidocaine 1% (5 ml sdv) 5 ML Vial IV (13:21)
[2025-05-30] MEDS: Cefazolin 1 GM/5 ML Vial 2 GM IV (13:25)
[2025-05-30] MEDS: fentaNYL 100 MCG/2 ML Ampul IV (13:48)
--- NOTE | 2025-05-30 14:30 | OP.PCM_ITS ---
Oncology: Artur Requirements . Oncology surgical intervention performed: [place] Node Biopsy for Breast Cancer performed [place] Node Bx - Breast Cancer: Synoptic Portion: Element Response Options Operation performed with curative intent. Yes Tracer(s) used to identify sentinel nodes in the upfront surgery (non- neoadjuvant) setting (select all that apply). Dye; Radioactive tracer Tracer(s) used to identify sentinel nodes in the neoadjuvant setting (select all that apply). N/A All nodes (colored or non-colored) present at the end of a dye-filled lymphatic channel were removed. Yes All significantly radioactive nodes were removed. Yes All palpably suspicious nodes were removed. Yes Biopsy-proven positive nodes marked with clips prior to chemotherapy were identified and removed. N/A. Operative Report (Standard) Operative Information Date of Procedure: 05/30/25 Pre-Operative Diagnosis: Left breast cancer Post-Operative Diagnosis: Same Surgery/Procedure Performed: Ultrasound-guided left lumpectomy, sentinel lymph node biopsy with Lymphoseek and Lymphazurin formula weigher: Yes Colon Therapist: Joni Goodwin Tasks completed by first line production supervisor: Opening and Retracting Additional design assistant?: Yes Additional Mine Engineer #2: Keisha Guevara Tasks completed by design assistant #2: Closing Type of Anesthesia: General/Supplemental RN Documented Start/Stop Times: Operation Date: 05/30/25 12:30 Case Time Into Pre-Op 05/30/25 10:43 Out of Pre-Op 05/30/25 13:07
--- NOTE | 2025-05-30 14:30 | PCM.OPRPT ---
Oncology: Artur Requirements . Oncology surgical intervention performed: [place] Node Biopsy for Breast Cancer performed [place] Node Bx - Breast Cancer: Synoptic Portion: Element Response Options Operation performed with curative intent. Yes Tracer(s) used to identify sentinel nodes in the upfront surgery (non-neoadjuvant) setting (select all that apply). Dye; Radioactive tracer Tracer(s) used to identify sentinel nodes in the neoadjuvant setting (select all that apply). N/A All nodes (colored or non-colored) present at the end of a dye-filled lymphatic channel were removed. Yes All significantly radioactive nodes were removed. Yes All palpably suspicious nodes were removed. Yes Biopsy-proven positive nodes marked with clips prior to chemotherapy were identified and removed. N/A. Operative Report (Standard) Operative Information Date of Procedure: 05/30/25 Pre-Operative Diagnosis: Left breast cancer Post-Operative Diagnosis: Same Surgery/Procedure Performed: Ultrasound-guided left lumpectomy, sentinel lymph node biopsy with Lymphoseek and Lymphazurin stocking and box shop supervisor: Yes Manager Of Program: Joni Goodwin Tasks completed by itinerant teacher assistant: Opening and Retracting Additional education assistant?: Yes Additional Audiometric Technician #2: Keisha Guevara Tasks completed by education assistant #2: Closing Type of Anesthesia: General/Supplemental RN Documented Start/Stop Times: Operation Date: 05/30/25 12:30 Case Time Into Pre-Op 05/30/25 10:43 Out of Pre-Op 05/30/25 13:07 Anesthesia Start 05/30/25 13:16 Into Room 05/30/25 13:16 Procedure Start 05/30/25 13:48 Procedure End 05/30/25 14:54 Anesthesia End 05/30/25 14:59 Out of Room 05/30/25 14:59 Into Recovery 05/30/25 15:01 Out of Recovery 05/30/25 15:36 Into Phase II Recovery 05/30/25 15:37 Out of Phase II 05/30/25 16:39 Procedure Start Time: 13:48 Procedure Stop Time: 14:54 Select all DRAINS/GRAFTS/IMPLANTS that apply: Implanted device Implanted device details: 3 medium clips at the deep cavity margin Special Medications: Ancef 2 g IV x 1 Estimated Blood Loss: < 10 cc Specimen collected: Yes Description of specimen(s) removed: Left axillary sentinel nodes, left breast mass Description of surgery: In AC the breast tissue was injected Lymphoseek.>30 minutes later the patient was taken to the operating room and general anesthesia was induced. 5 cc of Lymphazurin 1% blue dye was injected in the 4 quadrants periareolar along with 10 cc of normal saline. This was massaged gently for 5 minutes. The left breast and axilla were prepped and draped in usual sterile fashion. A timeout was completed verifying correct patient, procedure, site, positioning, special equipment prior to beginning procedure. Handheld gamma probe was used to identify the location of the hottest spot in the axilla. Prior to the incision, the counts were 30. The incision was made in the blue and hot node was identified. The probe was placed in contact with the node in the 10 count was 5422. The bed of the node measured 20 counts. No additional blue or hot nodes or palpable were detected. Frozen had 2 negative lymph nodes, and no clip was in the excised lymph nodes?previous lymph node biopsy was negative. Ultrasound was use for localization of the breast mass using the BARD needle. The wire was placed just inferiorly to the mass. A curvilinear incision was planned in such a way as to minimize the amount of dissection to reach the mass. Flaps were raised in the location of the wire confirmed. The wire was delivered into the wound. 2 silk [id number] stay suture was placed around the wire and used for traction. Dissection was then taken down circumferentially, taking care to include the entire localization needle and wide margin of grossly normal tissue. The specimen and entire localizing wire were removed. The specimen was oriented and sent to radiology with the localization studies. Confirmation was received that the entire target lesion had been resected. 3 medium clips were placed in the line at the deep area of the cavity. The cavities were irrigated. Hemostasis was checked. The breast and axillary incisions were closed with interrupted sutures of 3-0 Vicryl and subcuticular sutures of 4-0 Monocryl. No attempt was made to close the space. Dermabond and supportive bra placed. The patient tolerated procedure well was taken to the postanesthesia care in stable condition Surgical Findings: See operative report Complications Complications: No
--- NOTE | 2025-05-30 14:31 | BI_ITS ---
EXAM: BREAST BIOPSY SPECIMEN 05/30/2025 CLINICAL HISTORY: F, Age 69 y/o, history of left breast cancer. Cancer was localized for surgical removal. Document whether cancer is present in the specimen. TECHNIQUE: Procedure Code: BIB Modality: MG Procedure: BREAST BIOPSY SPECIMEN COMPARISON: Mammogram dated 04/15/2025 and 04/07/2025. Breast MRI dated 05/10/2025 was reviewed as well as a breast ultrasound dated 04/15/2025 FINDINGS: 2 different specimen radiographs were submitted for review. Only one view each specimen was obtained. 1 of the specimens demonstrates a mass and a few calcifications to be present within it. Due to only one view being obtained, clear margins can not be determined. No markers were placed on the specimen to determine which was the caudal, cranial, lateral, medial deep or skin margins. Pathology is pending. Also, there were no notations as to where the specimen came from within the breast. The 2nd specimen demonstrates a mass and a few calcifications to be present within it. Due to only one view being obtained, clear margins can not be determined. No markers were placed on the specimen to determine which was the caudal, cranial, lateral, medial deep or skin margins. Pathology is pending. Also, there were no notations as to where the specimen came from within the breast. This specimen however does have a wire and a radiopaque clip within it. BI/Breast Biopsy Specimen IMPRESSION: OVERALL FINAL ASSESSMENT: BIRADS 6: Known Biopsy-Proven Malignancy. RECOMMENDATION: Pathology is pending A letter with findings and recommendations will be mailed to the patient. Reading Location: [id number]
--- NOTE | 2025-05-30 14:34 | EX.PCM.DISCH ---
Discharge Instructions Diet Discharge Diet: No restrictions Activity Discharge Activity: May Not Drive (for 2-3 days or while taking narcotic pain meds.) May shower in (days): 1 Lifting Restrictions: 10 pounds for 1 week. Dressing / Incision Call your doctor if your incision/area has: Continuous Slow Oozing, Sudden Increased Bleeding, Increased Pain/ Swelling and Increased Redness Call your doctor if you observe: Fever of 101 or Higher Suture Line Care: Avoid Pulling/Pushing and Avoid Pinching/Bending Remove Dressing in: 1 day Additional Dressing/Incision Instructions:: Remove bulky dressing tomorrow. May leave op-site dressing for 3-4 days. Dermabond (glue) was used at the axillary incision this may start to peel off in about 5 days. Okay to remove Steri-Strips from the breast incision in 7 to 10 days. Follow Up Care Please Follow Up With: Martina Mir MD When: Please call [phone] for an appointment to be seen in 2 week. Test Results: Test results from this visit will be discussed in further detail at your follow-up appointment, if applicable. Discharge Plan Admission Attending Provider: Martina Mir Primary Care Provider: Onel Solorzano Instructions Print Language: [place] Islander Discharge Orders/Prescriptions Prescriptions: New oxycodone 5 mg capsule 5 mg PO Q6H PRN (Reason: pain) 2 Days Qty: 5 0RF Continued atorvastatin [Lipitor] 10 mg tablet 10 mg PO QHS bupropion HCl [Wellbutrin XL] 150 mg tablet extended release 24 hr 150 mg PO QAM PreserVision AREDS 4,296 mcg-226 mg-90 mg capsule 1 cap PO QDAY Referrals / Follow Up: Onel Solorzano MD [Primary Care Provider, Family Practice] Disposition Disposition (needs filled in before D/C Order can be placed): Home, Self Care
[2025-05-30] MEDS: 0.9% Normal Saline (Pres. free 10 ML Vial (14:37)
--- NOTE | 2025-05-30 15:04 | PCM.POST.ANE ---
Anesthesia: Postop Eval I Current Vital Signs Temperature: 98 F Pulse Rate: 75 Blood Pressure: 140/82 Respiratory Rate: 16 Pulse Ox: 95 Oxygen Delivery Method: Room Air Assessment Airway patent: Yes Spontaneous unlabored respirations: Yes Mental status: Awake and Calm nausea: No Vomiting: No Anesthesia Complication: No Fluid Hydration Crystalloid volume administer (ml): 800 Total IV fluid infused: 800 Progress Note Anesthesia document: Postop Eval 1 completed: Yes
--- NOTE | 2025-05-30 15:26 | POSTOPAN2_ITS ---
Anesthesia Postop Eval I Sum Postop Eval Completion status Anesthesia document: Postop Eval 1 completed: Yes Anesthesia Postop Eval I Summary Anesthesia Postop Eval I Summary: Anesthesia Postop Eval I: Assessment Summary Airway patent Yes 05/30/25 15:04 [email or web address] Spontaneous unlabored Yes 05/30/25 15:04 CAMERA [email or web address] respirations Mental status Awake,Calm 05/30/25 15:04 [email or web address] [email or web address] nausea No 05/30/25 15:04 CAMERA [email or web address] Vomiting No 05/30/25 15:04 [email or web address] [email or web address] Anesthesia Postop Eval I: Fluid Summary Crystalloid volume administer 800 05/30/25 15:04 [email or web address] [email or web address] (ml) Colloids volume administered ( ml) Blood Product volume administered (ml) Total IV fluid infused 800 05/30/25 15:04 [email or web address] [email or web address] Anesthesia Postop Eval I: Summary Notes Anesthesia Complication No 05/30/25 15:04 [email or web address] [email or web address] Anesthesia Complication Comment: Post-operative progress note Anesthesia: Postop Eval II Evaluation Mental status: Awake Pain Level: 0 nausea: No Vomiting: No
--- NOTE | 2025-05-30 15:26 | PCM.POSTANE2 ---
Anesthesia Postop Eval I Sum Postop Eval Completion status Anesthesia document: Postop Eval 1 completed: Yes Anesthesia Postop Eval I Summary Anesthesia Postop Eval I Summary: Anesthesia Postop Eval I: Assessment Summary Airway patent Yes 05/30/25 15:04 MANAGER [email or web address] Spontaneous unlabored Yes 05/30/25 15:04 MANAGER [email or web address] respirations Mental status Awake,Calm 05/30/25 15:04 MANAGER [email or web address] nausea No 05/30/25 15:04 MANAGER [email or web address] Vomiting No 05/30/25 15:04 MANAGER [email or web address] Anesthesia Postop Eval I: Fluid Summary Crystalloid volume administer 800 05/30/25 15:04 MANAGER [email or web address] (ml) Colloids volume administered ( ml) Blood Product volume administered (ml) Total IV fluid infused 800 05/30/25 15:04 MANAGER [email or web address] Anesthesia Postop Eval I: Summary Notes Anesthesia Complication No 05/30/25 15:04 MANAGER [email or web address] Anesthesia Complication Comment: Post-operative progress note Anesthesia: Postop Eval II Evaluation Mental status: Awake Pain Level: 0 nausea: No Vomiting: No
== END 2025-05-30 16:40 | disposition home or self-care (01) ==
LOC: SDC 10:38 → AC 10:41
PROVIDERS: PCP Family Medicine; Referring Provider Surgery; Visit Provider Surgery
PROC: 0HBV0ZZ Excision of Bilateral Breast, Open Approach (ICD-10-PCS; CPT 19302; principal; 2025-05-30 12:15)
DX: C50.912 Malignant neoplasm of unspecified site of left female breast (principal); I10 Essential (primary) hypertension; Z80.3 Family history of malignant neoplasm of breast; E78.00 Pure hypercholesterolemia, unspecified
CPT/HCPCS: 19301; 38525; 38792; 76098; 88305; 88307; 88331; 88341; 88342; A4648; A9520; J2405; Q9968

== ENCOUNTER → 2025-06-20 | Outpatient (CLI) | payer MEDICARE, OTHER, SELFPAY ==
--- NOTE | 2025-06-20 13:45 | RAD_ITS ---
PROCEDURE: CHEST PA AND LATERAL 06/20/2025 REASON FOR EXAM: BREAST CA TECHNIQUE: Procedure Code: RADCXR Modality: DX Procedure: CHEST PA AND LATERAL FINDINGS: There are no focal opacities, pleural effusions, or pneumothoraces. The heart size is unremarkable. The upper abdomen is unremarkable. The osseous structures are intact. RAD/Chest PA and Lateral IMPRESSION: No acute cardiopulmonary findings. Reading Location: [id number]
--- OUTSIDE RECORDS SUMMARY | 2025-06-20 19:26 | XMS RPT_ITS | CCD ---
Author Organization [facility] Care Team Providers Care Clay Maker Name Role Phone Lavern Malcolm Unavailable PROVIDER, [...] Absolute Lymph 2.65 X10 3/uL Normal 0.83-4.51 [facility] Comment on above: Order Comment: Order Date: 10/14/24 Order Info: 0184- - CBCD Performed By: #### L 500.4100, L500.4050, L100.0100 #### [facility] [address] [place], [address] Absolute Neut 3.3 X10 3/uL Normal 2.0-7.7 [facility] Comment on above: Order Comment: Order Date: 10/14/24 Order Info: 0184- - CBCD Performed By: #### L 500.4100, L500.4050, L100.0100 #### [facility] [address] [place], [address] Basophils/100 WBC (Bld) 0.4 % Normal 0-1 [facility] Comment on above: Order Comment: Order Date: 10/14/24 Order Info: 0184- - CBCD Performed By: #### L 500.4100, L500.4050, L100.0100 #### [facility] [address] [place], [address] Eosinophils/100 WBC (Bld) 2.7 % Normal 0-5 [facility] Comment on above: Order Comment: Order Date: 10/14/24 Order Info: 0184- - CBCD Performed By: #### L 500.4100, L500.4050, L100.0100 #### [facility] [address] [place], [address] Erythrocyte distribution width (RBC) [Ratio] 13.0 % Normal 11.6-14.6 [facility] Comment on above: Order Comment: Order Date: 10/14/24 Order Info: 0184- - CBCD Performed By: #### L 500.4100, L500.4050, L100.0100 #### [facility] [address] [place], [address] Hematocrit (Bld) [Volume fraction] 41.3 % Normal 37-47 [facility] Comment on above: Order Comment: Order Date: 10/14/24 Order Info: 0184-1 - CBCD Performed By: #### L 500.4100, L500.4050, L100.0100 #### [facility] [address] [place], [address] Hemoglobin (Bld) [Mass/Vol] 13.9 g/dL Normal 12.0-15.0 [facility] Comment on above: Order Comment: Order Date: 10/14/24 Order Info: 0184- - CBCD Performed By: #### L 500.4100, L500.4050, L100.0100 #### [facility] [address] [place], [address] IG% 0.300 Normal 0.0-0.9 [facility] Comment on above: Order Comment: Order Date: 10/14/24 Order Info: 0184-1 - CBCD Result Comment: IG% - Immature Granulocytes (promyelocytes, myelocytes and metamyelocytes) > 1% indicates that a LEFT SHIFT is Present. Performed By: #### L 500.4100, L500.4050, L100.0100 #### [facility] [address] [place], [address] Lymphocytes/100 WBC (Bld) 38.2 % Normal 19-41 [facility] Comment on above: Order Comment: Order Date: 10/14/24 Order Info: 0184-1 - CBCD Performed By: #### L 500.4100, L500.4050, L100.0100 #### [facility] [address] [place], [address] MCH (RBC) [Entitic mass] 31.7 pg Normal 27.0-32.0 [facility] Comment on above: Order Comment: Order Date: 10/14/24 Order Info: 0184-1 - CBCD Performed By: #### L 500.4100, L500.4050, L100.0100 #### [facility] [address] [place], [address] MCHC (RBC) [Mass/Vol] 33.7 g/dL Normal 32-[address] [facility] Comment on above: Order Comment: Order Date: 10/14/24 Order Info: 0184-1 - CBCD Performed By: #### L 500.4100, L500.4050, L100.0100 #### [facility] [address] [place], [address] MCV (RBC) [Entitic vol] 94.3 fL Normal 81-99 [facility] Comment on above: Order Comment: Order Date: 10/14/24 Order Info: 0184-1 - CBCD Performed By: #### L 500.4100, L500.4050, L100.0100 #### [facility] [address] [place], [address] Monocytes/100 WBC (Bld) 10.4 % High 0-10 [facility] Comment on above: Order Comment: Order Date: 10/14/24 Order Info: 0184-1 - CBCD Performed By: #### L 500.4100, L500.4050, L100.0100 #### [facility] [address] [place], [address] Neutrophils/100 WBC (Bld) 48.0 % Normal 47-70 [facility] Comment on above: Order Comment: Order Date: 10/14/24 Order Info: 0184-1 - CBCD Performed By: #### L 500.4100, L500.4050, L100.0100 #### [facility] [address] [place], [address] Nucleated RBC (Bld) [#/Vol] 0 10*3/uL Normal 0-5 [facility] Comment on above: Order Comment: Order Date: 10/14/24 Order Info: 0184-1 - CBCD Performed By: #### L 500.4100, L500.4050, L100.0100 #### [facility] [address] [place], [address] Platelet mean volume (Bld) [Entitic vol] 8.7 fL Normal 6.2-12.0 [facility] Comment on above: Order Comment: Order Date: 10/14/24 Order Info: 0184-1 - CBCD Performed By: #### L 500.4100, L500.4050, L100.0100 #### [facility] [address] [place], [address] Platelets (Bld) [#/Vol] 349 10*3/uL Normal 150-450 [facility] Comment on above: Order Comment: Order Date: 10/14/24 Order Info: 0184-1 - CBCD Performed By: #### L 500.4100, L500.4050, L100.0100 #### [facility] [address] [place], [address] RBC (Bld) [#/Vol] 4.38 10*6/uL Normal 4.2-5.4 [facility] Comment on above: Order Comment: Order Date: 10/14/24 Order Info: 0184-1 - CBCD Performed By: #### L 500.4100, L500.4050, L100.0100 #### [facility] [address] [place], [address] RDW SD 45.2 fl High 35.1-43.9 [facility] Comment on above: Order Comment: Order Date: 10/14/24 Order Info: 0184-1 - CBCD Performed By: #### L 500.4100, L500.4050, L100.0100 #### [facility] [address] [place], [address] WBC (Bld) [#/Vol] 6.9 10*3/uL Normal 4.4-11.0 [facility] Comment on above: Order Comment: Order Date: 10/14/24 Order Info: 0184-1 - CBCD Performed By: #### L 500.4100, L500.4050, L100.0100 #### [facility] [address] [place], [address] Comprehensive Metabolic Prof ilon 05-02-2025 Albumin [Mass/Vol] 4.8 g/dL Normal 3.4-4.8 [facility] Comment on above: Order Comment: Order Date: 10/14/24 Order Info: 0786-1 - CMP Order Info: [id number] - LIPID Performed By: #### L 500.4100, L500.4050, L100.0100 #### [facility] [address] [place], [address] Albumin/Globulin [Mass ratio] 1.6 {ratio} Normal 0.9-2.4 [facility] Comment on above: Order Comment: Order Date: 10/14/24 Order Info: 0786-1 - CMP Order Info: [id number] - LIPID Performed By: #### L 500.4100, L500.4050, L100.0100 #### [facility] [address] [place], [address] ALK PHOS 99 U/L Normal 35-104 [facility] Comment on above: Order Comment: Order Date: 10/14/24 Order Info: 0786-1 - CMP Order Info: [id number] - LIPID Performed By: #### L 500.4100, L500.4050, L100.0100 #### [facility] [address] [place], [address] ALT [Catalytic activity/Vol] 21 U/L Normal <=34 [facility] Comment on above: Order Comment: Order Date: 10/14/24 Order Info: 0786-1 - CMP Order Info: [id number] - LIPID Performed By: #### L 500.4100, L500.4050, L100.0100 #### [facility] [address] [place], [address] AST [Catalytic activity/Vol] 27 U/L Normal <=31 [facility] Comment on above: Order Comment: Order Date: 10/14/24 Order Info: 0786-1 - CMP Order Info: [id number] - LIPID Performed By: #### L 500.4100, L500.4050, L100.0100 #### [facility] [address] [place], [address] Bilirubin [Mass/Vol] 0.94 mg/dL Normal 0.00-1.30 [facility] Comment on above: Order Comment: Order Date: 10/14/24 Order Info: 0786- - CMP Order Info: [id number] - LIPID Performed By: #### L 500.4100, L500.4050, L100.0100 #### [facility] [address] [place], [address] BUN/CRE 14.6 RATIO Normal 10-20 [facility] Comment on above: Order Comment: Order Date: 10/14/24 Order Info: 0786- - CMP Order Info: [id number] - LIPID Performed By: #### L 500.4100, L500.4050, L100.0100 #### [facility] [address] [place], [address] Calcium [Mass/Vol] 10.0 mg/dL Normal 7.6-11.0 [facility] Comment on above: Order Comment: Order Date: 10/14/24 Order Info: 0786-1 - CMP Order Info: [id number] - LIPID Performed By: #### L 500.4100, L500.4050, L100.0100 #### [facility] [address] [place], [address] Chloride [Moles/Vol] 103 mmol/L Normal 98-108 [facility] Comment on above: Order Comment: Order Date: 10/14/24 Order Info: 0786-1 - CMP Order Info: [id number] - LIPID Performed By: #### L 500.4100, L500.4050, L100.0100 #### [facility] [address] [place], [address] CO2 [Moles/Vol] 26.5 mmol/L Normal 21.0-32.0 [facility] Comment on above: Order Comment: Order Date: 10/14/24 Order Info: 0786-1 - CMP Order Info: [id number] - LIPID Performed By: #### L 500.4100, L500.4050, L100.0100 #### [facility] [address] [place], [address] Creatinine [Mass/Vol] 1.09 mg/dL Normal 0.70-1.[address] [facility] Comment on above: Order Comment: Order Date: 10/14/24 Order Info: 0786-1 - CMP Order Info: [id number] - LIPID Performed By: #### L 500.4100, L500.4050, L100.0100 #### [facility] [address] [place], [address] GAP 12 Normal 5-15 [facility] Comment on above: Order Comment: Order Date: 10/14/24 Order Info: 0786-1 - CMP Order Info: [id number] - LIPID Performed By: #### L 500.4100, L500.4050, L100.0100 #### [facility] [address] [place], [address] GFR/1.73 sq M.predicted among non-blacks MDRD (S/P/Bld) [Vol rate/Area] 54 mL/min/{1.73_m2} Low >60 [facility] Comment on above: Order Comment: Order Date: 10/14/24 Order Info: 0786-1 - CMP Order Info: [id number] - LIPID Result Comment: mL/m in/1.73m2 CKD-EPI Creatinine Equation (2020) Performed By: #### L 500.4100, L500.4050, L100.0100 #### [facility] [address] [place], [address] Globulin (S) [Mass/Vol] 2.9 g/dL Normal 2.2-4.2 [facility] Comment on above: Order Comment: Order Date: 10/14/24 Order Info: 0786-1 - CMP Order Info: [id number] - LIPID Performed By: #### L 500.4100, L500.4050, L100.0100 #### [facility] [address] [place], [address] Glucose [Mass/Vol] 91 mg/dL Normal 70-99 [facility] Comment on above: Order Comment: Order Date: 10/14/24 Order Info: 0786- - CMP Order Info: [id number] - LIPID Performed By: #### L 500.4100, L500.4050, L100.0100 #### [facility] [address] [place], [address] Potassium [Moles/Vol] 4.4 mmol/L Normal 3.3-5.[address] [facility] Comment on above: Order Comment: Order Date: 10/14/24 Order Info: 0786-1 - CMP Order Info: [id number] - LIPID Performed By: #### L 500.4100, L500.4050, L100.0100 #### [facility] [address] [place], [address] Sodium [Moles/Vol] 142 mmol/L Normal 133-145 [facility] Comment on above: Order Comment: Order Date: 10/14/24 Order Info: 0786-1 - CMP Order Info: [id number] - LIPID Performed By: #### L 500.4100, L500.4050, L100.0100 #### [facility] [address] [place], [address] T PROT 7.7 g/dL Normal 5.9-8.4 [facility] Comment on above: Order Comment: Order Date: 10/14/24 Order Info: 0786-1 - CMP Order Info: [id number] - LIPID Performed By: #### L 500.4100, L500.4050, L100.0100 #### [facility] [address] [place], [address] Urea nitrogen [Mass/Vol] 16 mg/dL Normal 4-19 [facility] Comment on above: Order Comment: Order Date: 10/14/24 Order Info: 0786-1 - CMP Order Info: [id number] - LIPID Performed By: #### L 500.4100, L500.4050, L100.0100 #### [facility] [address] [place], [address] Lipid Profileon 05-02-2025 CHOL:HDL 1.73 Normal [facility] Comment on above: Order Comment: Order Date: 10/14/24Order Info: 0786-1 - CMPOrder Info: [id number] - LIPID Performed By: #### L 500.4100, L500.4050, L100.0100 ####[facility] [address] [place], [address] Cholesterol [Mass/Vol] 261 mg/dL High <=200 [facility] Comment on above: Order Comment: Order Date: 10/14/24Order Info: 0786-1 - CMPOrder Info: [id number] - LIPID Result Comment: Chol esterol level, Desirable <200 mg/dL Borderline high cholesterol 200-239 mg/dL High cholesterol >=240 mg/dL Recommendations of the NCEP Adult Treatment Panel for the following risk-cutoff thresholds for the [place] population. Performed By: #### L 500.4100, L500.4050, L100.0100 ####[facility] [address] [place], [address] Cholesterol in HDL [Mass/Vol] 151 mg/dL Normal [facility] Comment on above: Order Comment: Order Date: 10/14/24Order Info: 0786-1 - CMPOrder Info: [id number] - LIPID Result Comment: Chyna onal Cholesterol Education Program (NCEP) guidelines: <40 mg/dL: Low HDL-cholesterol (major risk factor for CHD) >= 60 mg/dL: High HDL-cholesterol (negative risk factor for CHD) HDL-cholesterol is affected by a number of factors, e.g. smoking, exercise, hormones, sex and age. Performed By: #### L 500.4100, L500.4050, L100.0100 ####[facility] [address] [place], [address] Cholesterol in LDL [Mass/Vol] 88 mg/dL Normal [facility] Comment on above: Order Comment: Order Date: 10/14/24Order Info: 0786-1 - CMPOrder Info: [id number] - LIPID Result Comment: Bord zageiu=511-852 mg/dL Higher Wifu=350 mg/dL or greater Shore Equation 2020 for LDL-C Performed By: #### L 500.4100, L500.4050, L100.0100 ####[facility] [address] [place], [address] Cholesterol in VLDL [Mass/Vol] 27 mg/dL Normal 5-40 [facility] Comment on above: Order Comment: Order Date: 10/14/24Order Info: 0786-1 - CMPOrder Info: [id number] - LIPID Performed By: #### L 500.4100, L500.4050, L100.0100 ####[facility] [address] [place], [address] Triglyceride [Mass/Vol] 137 mg/dL Normal [facility] Comment on above: Order Comment: Order Date: 10/14/24Order Info: 0786-1 - CMPOrder Info: [id number] - LIPID Result Comment: The drugs N-Acetylcysteine and Metamizole may falsely depress this assay. Normal range: <150 mg/dL Borderline High: 150-199 mg/dL High: 200-499 mg/dL Very High: >500 mg/dL Performed By: #### L 500.4100, L500.4050, L100.0100 ####[facility] [address] [place], [place], [address] Vitamin D,25 Hydroxyon 05-02 Vitamin D 25-OH 107.0 ng/mL High 30-100 [facility] Comment on above: Order Comment: Order Date: 10/14/24Order Info: 0786-1 - CMPOrder Info: [id number] - LIPID Result Comment: Evangelina min D Status Deficiency: <20 ng/mL (50nmol/L) Insufficiency: 20-30 ng/mL (50-75 nmol/L) Sufficiency: 30-100 ng/mL (75-250 nmol/L) Toxicity: >100 ng/mL (>250 nmol/L) Performed By: #### L 506.1001 ####[facility] [address] [place], [place], [address] Immunohistochemical Stainson 04-25-2025 Immunohistochemical Stains -------- Patient Age/Sex Location Account Attending Physician -------- LIZBET PADILLA 69/F LABSPEC [id number] Dr. Martina Mir MD -------- Specimen: [id number] Received: 04/25/25 Status: BRYCE Sinclari Num: [id number] Spec Type: BREAST BX Subm Dr: Dr. [...] - ER: positive (95%, strong intensity) - CA: positive (80%, strong intensity) - HER2 IHC: equivocal (score 2+) - HER2 FISH: pending at [facility], to be reported in an addendum. - [...] developed and their performance characteristics determined by [facility]. They may not have been cleared [...] Attending Physician -------- LIZBET PADILLA 69/F LABSPEC [id number] Dr. Martina Mir MD -------- C. L axillary lymph node are multiple booth-yellow tissue core fragments, 1.0 x 0.4 x 0.1 cm in aggregate. Entirely submitted in 1 cassette. Cold ischemic time: <1-minuteFormalin fixation time: 28 hours, 30 minutes Note: Above times are based on the single collection time (3PM) on the requisition; individual collection times are not noted on the requisition. ([place]). [place] 5CPT:[id number], [id number] -------- Patient Age/Sex Location Account Attending Physician -------- LIZBET PADILLA 69/F LABSPEC [id number] Dr. Martina Mir MD -------- Signed (signature on file) Dr. Kelley Rees MD 05/04/25 1851 -------- [facility] Comment on above: Performed By: #### P [facility] #### [facility] [address] [place], [address] Surgery Visit Reporton 04-25 Surgery Visit Report [facility] [address] [place] [address] OFFICE VISIT Date of Service: 04/25/25 MR#: [id number] Acct: [id number] Name: LIZBET PADILLA Rep #: [id number] : 1955 Provider: Dr. Martina vaughn MD Age/Sex: 69/F Location: [facility] Status: Signed Intake Vital Signs 05/15/24 18:43 [...] PO QAM 04/25/25 04/25/25 His tory vitamins A,C,E-hqcc-iyayby 4,296 1 cap PO QDAY 04/25/25 04/25/25 [...] Patient just moved a year ago from [facility] previous to that lived in [place]. Reports below showed 2 irregular left breast [...] needle biopsies about 40 years ago in [place] benign per patient. DIAG MAMM W/CAD, UNILAT; [...] ultrasound-guided biopsy. (more content not included)... Normal [facility] Breast Complete Unilateralon 04-15-2025 Breast Complete Unilateral [facility] [address] [place] [address] Breast Complete Unilateral MR#: [id number] Acct: [id number] Name: LIZBET PADILLA Rep #: [id number] : 1955 F 69 From: Holli Ott MD PCP: Dr. Onel Solorzano MD Status: REG CLI Study: Breast Complete Unilateral Date of Exam: 04/15 Exam# [id number] Ordering Dr: Onel Solorzano MD EXAM: DIAG [...] be mailed to the patient. Reading Location: [facility] CC: Dr. Onel Solorzano MD Golf Player Assistant: Signed Normal [facility] DIAG MAMM W/CAD, UNILATon DIAG MAMM W/CAD, UNILAT [facility] Imaging Services [address] [place] [address] DIAG MAMM W/CAD, UNILAT MR#: [id number] Acct: [id number] Name: LIZBET PADILLA Rep #: [id number] : 1955 F 69 From: Holli Ott MD PCP: Dr. Onel Solorzano MD Status: REG CLI Study: DIAG MAMM W/CAD, UNILAT Date of Exam: 04/15/25 Exam# [id number] Ordering Dr: Onel Solorzano MD EXAM: DIAG [...] be mailed to the patient. Reading Location: [facility] CC: Dr. Onel Solorzano MD Golf Player Assistant: Signed Normal [facility] Lt Brst Unilat Jeffry Add Onon 04-15-2025 Lt Brst Unilat Jeffry Add On [facility] [address] [place], [place] [id number] Lt Brst Unilat Jeffry Add On MR#: [id number] Acct: [id number] Name: LIZBET PADILLA Rep #: [id number] : 1955 F 69 From: Holli Ott MD PCP: Dr. Onel Solorzano MD Status: REG CLI Study: Lt Brst Unilat Jeffry Add On Date of Exam: 04/15 Exam# [id number] Ordering Dr: Onel Solorzano MD EXAM: DIAG [...] be mailed to the patient. Reading Location: [id number] CC: Dr. Onel Solorzano MD Golf Player Assistant: Signed Normal [facility] Dexa Bone Density Studyon Dexa Bone Density Study [facility] Imaging Services [facility] [place] [address] Dexa Bone Density Study MR#: [id number] Acct: [id number] Name: LIZBET PADILLA Rep #: [id number] : 1955 F 69 From: Ryan candelario MD PCP: Dr. Onel Solorzano MD Status: REG CLI Study: Dexa Bone Density Study Date of Exam: 04/07/25 Exam# [id number] Ordering Dr: Onel Solorzano MD PROCEDURE: DEXA [...] Recommend follow-up as clinically warranted. Reading Location: [place] [address] CC: Dr. Onel Solorzano MD Golf Player Assistant: Signed Normal [facility] SCRN MAMM (CAD)W/JEFFRY BILATo n 04-07-2025 SCRN MAMM (CAD)W/JEFFRY BILAT [facility] Services [address] [place] [id number] SCRN MAMM (CAD)W/JEFFRY BILAT MR#: [id number] Acct: [id number] Name: LIZBET PADILLA Rep #: [id number] : 1955 F 69 From: Violet Melendez i, MD PCP: Dr. Onel Solorzano MD Status: REG CLI Study: SCRN MAMM (CAD)W/JEFFRY BILAT Date of Exam: 03/23 12/15 Exam# [id number] Ordering Dr: Onel Solorzano MD EXAM: SCRN [...] be mailed to the patient. Reading Location: [id number] CC: Dr. Onel Solorzano MD Golf Player Assistant: Signed Normal [facility] CNOVon 09-28-2024 CNOV Office Visit (ORAVON ) LIZBET PADILLA ([id number]) 1955 F Date Time Provider Department 09/28/24 [...] IMPRESSION: Right total hip arthroplasty without complication Golf Player Assistant: PSCB Transcribe Date/Time: Sep 28 2024 4:54P Dictated by : FRED MONREAL MD This examination was interpreted and the report reviewed and electronically signed by: FRDE MONREAL MD on Sep 28 2024 4:54PM EST [id number] Normal [facility] XR Pelvis and Hip - right AP and Lateral frogon 09-28-2024 IMPRESSION: Right total hip arthroplasty without complication Golf Player Assistant: [facility] Transcribe Date/Time: Sep 28 2024 4:54P [...] change noted L5-S1. DIVISION OF RADIOLOGY Provider, [facility] - 09/28/2024 [...] IMPRESSION: Right total hip arthroplasty without complication Golf Player Assistant: PSCB Transcribe Date/Time: Sep 28 2024 4:54P Dictated by : FRED MONREAL MD This examination was interpreted and the report reviewed and electronically signed by: FRED MONREAL MD on Sep 28 2024 4:54PM [facility] Radiology Study observation (narrative) [facility] XR Pelvis and Hip - right AP and Lateral frogOrdered By: Ccf Provider on 09-28-2024 [facility] CNPAnamaria 06-11-2024 CNPN Telephone (ORQ) LIZBET PADILLA ([id number]) 1955 F Date Time Provider Department 06/11/24 [...] Encounter Status:Closed by YANET COUGHLIN on 06/11/24 [facility] CNOVon 06-01-2024 CNOV Office Visit (ORAVON ) LIZBET PADILLA ([id number]) 1955 F Date Time Provider Department 06/01/24 [...] other significant abnormality. IMPRESSION: NO SIGNIFICANT CHANGE Golf Player Assistant: [facility] Transcribe Date/Time: Jun 01 2024 10:35A Dictated by : ALEXUS DUMONT MD This examination was interpreted and the report reviewed and electronically signed by: ALEXUS DUMONT MD on Jun 01 2024 10:36AM EST [id number] N Normal [facility] XR Pelvis and Hip - right AP and Lateral frogon 06-01-2024 IMPRESSION: NO SIGNIFICANT CHANGE Golf Player Assistant: [facility] Transcribe Date/Time: Jun 01 2024 10:35A Dictated by : ALEXUS DUMONT MD This examination was interpreted and the report reviewed and electronically signed by: ALEUXS DUMONT MD on Jun 01 2024 10:36AM [...] other significant abnormality. DIVISION OF RADIOLOGY Provider, [facility] - 06/01/2024 [...] significant abnormality. IMPRESSION IMPRESSION: NO SIGNIFICANT CHANGE Golf Player Assistant: ALLI Transcribe Date/Time: Jun 01 2024 10:35A Dictated by : ALEXUS DUMONT MD This examination was interpreted and the report reviewed and electronically signed by: ALEXUS DUMONT MD on Jun 01 2024 10:36AM EST [facility] Radiology Study observation (narrative) [facility] XR Pelvis and Hip - right AP and Lateral frogOrdered By: Ccf Provider on 06-01-2024 [facility] NM BONE 3 PHASEon 05-25-2024 AR BONE 3 PHASE * * *Final Report* [...] prosthesis as described, likely related to loosening. Golf Player Assistant: [facility] Transcribe Date/Time: May 25 2024 4:43P Dictated by : KAYLA JACKSON MD This examination was interpreted and the report reviewed and electronically signed by: KAYLA JACKSON MD on May 25 2024 5:04PM EST [id number] Normal [facility] Bone 3 Phase Viewson 12-0 IMPRESSION: Abnormal uptake in the periprosthetic region of the right hip prosthesis as described, likely related to loosening. Golf Player Assistant: [facility] Transcribe Date/Time: May 25 2024 4:43P Dictated by : KAYLA JACKSON MD This examination was interpreted and the report reviewed and electronically signed by: KAYLA JACKSON MD on May 25 2024 5:04PM [facility] * * *Final Report* * [...] in the other portions of the prosthesis. [facility] Provider, [facility] [place] - 05/25/2024 * * *Final Report* * [...] prosthesis as described, likely related to loosening. Golf Player Assistant: [facility] Transcribe Date/Time: May 25 2024 4:43P Dictated by : KAYLA JACKSON MD This examination was interpreted and the report reviewed and electronically signed by: KAYLA JACKSON MD on May 25 2024 5:04PM EST [facility] Radiology Study observation (narrative) Xiomara Ocasio AR Bone 3 Phase ViewsOrdered By: [facility]cf Provider on 05-25-2024 [facility] Emergency Department Summary on 05-15-2024 Emergency Department Summary [facility] Medical Records Department [address] [place] [address] Emergency Department Summary 05/15/24 MR#: [id number] Acct: [id number] Name: LIZBET PADILLA Rep #: [id number] : 1955 68 From: Elijah Damico MD [...] light. Scalp nontender no hematoma. Nose nasal screen tender helper swollen consistent with a nasal fracture. [...] girdle intact. Moving all 4 extremities. 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 Normal range of motion upper and [...] bowel so (more content not included)... Normal [facility] CBC W Auto Differential pane l (Bld)on 05-12-2024 Basophils (Bld) [#/Vol] 0.05 10*3/uL Normal <0.11 [facility] Comment on above: Order Comment: Speci men Type: BLOOD SPECIMEN Ordering Facility: [facility] Address: [address] [place] [address] Performed By: #### 5 7021-8, 7-7 #### [facility] CLIA [id number] [address] [place] [address] [place] Basophils/100 WBC (Bld) 0.7 % Normal [facility] Comment on above: Order Comment: Speci men Type: BLOOD SPECIMEN Ordering Facility: [facility] Address: [address] [place] [address] Performed By: #### 5 7021-8, 4536-7 #### [facility] CLIA [id number] [address] [place] [address] [place] Differential cell count method Nom (Bld) Auto Normal [facility] Comment on above: Order Comment: Speci men Type: BLOOD SPECIMEN Ordering Facility: [facility] Address: [address] [place] [address] Performed By: #### 5 7021-8, 4536-7 #### [facility] CLIA [id number] [address] [place] [address] [place] Eosinophils (Bld) [#/Vol] 0.28 10*3/uL Normal <0.46 [facility] Comment on above: Order Comment: Speci men Type: BLOOD SPECIMEN Ordering Facility: [facility] Address: [address] [place] [address] Performed By: #### 5 7021-8, 4536-7 #### [facility] CLIA [id number] [address] [place] [address] [place] Eosinophils/100 WBC (Bld) 3.7 % Normal [facility] Comment on above: Order Comment: Speci men Type: BLOOD SPECIMEN Ordering Facility: [facility] Address: [address] [place] [address] Performed By: #### 5 7021-8, 7-7 #### [facility] CLIA [id number] [address] [place] [address] [place] Erythrocyte distribution width (RBC) [Ratio] 12.1 % Normal 11.5-15.0 [facility] Comment on above: Order Comment: Speci men Type: BLOOD SPECIMEN Ordering Facility: [facility] Address: [address] [place] [address] Performed By: #### 5 7021-8, 4537-7 #### [facility] CLIA [id number] [address] [place] [address] [place] Hematocrit (Bld) [Volume fraction] 43.4 % Normal 36.0-46.0 [facility] Comment on above: Order Comment: Speci men Type: BLOOD SPECIMEN Ordering Facility: [facility] Address: [address] [place] [address] Performed By: #### 5 7021-8, 4537-7 #### [facility] CLIA [id number] [address] [place] [address] [place] Hemoglobin (Bld) [Mass/Vol] 14.4 g/dL Normal 11.5-15.5 [facility] Comment on above: Order Comment: Speci men Type: BLOOD SPECIMEN Ordering Facility: [facility] Address: [address] [place] [address] Performed By: #### 5 7021-8, 4537-7 #### [facility] CLIA [id number] [address] [place] [address] [place] Immature granulocytes (Bld) [#/Vol] 10*3/uL Normal <0.10 [facility] Comment on above: Order Comment: Speci men Type: BLOOD SPECIMEN Ordering Facility: [facility] Address: [address] [place] [address] Performed By: #### 5 7021-8, 4537-7 #### [facility] CLIA [id number] [address] [place] [address] [place] Immature granulocytes/100 WBC (Bld) 0.1 % Normal [facility] Comment on above: Order Comment: Speci men Type: BLOOD SPECIMEN Ordering Facility: [facility] Address: [address] [place] [address] Performed By: #### 5 7021-8, 453-7 #### [facility] CLIA [id number] [address] [place] [address] [place] Lymphocytes (Bld) [#/Vol] 3.13 10*3/uL Normal 1.00-4.00 [facility] Comment on above: Order Comment: Speci men Type: BLOOD SPECIMEN Ordering Facility: [facility] Address: [address] [place] [address] Performed By: #### 5 7021-8, 453-7 #### [facility] CLIA [id number] [address] [place] [address] [place] Lymphocytes/100 WBC (Bld) 41.3 % Normal [facility] Comment on above: Order Comment: Speci men Type: BLOOD SPECIMEN Ordering Facility: [facility] Address: [address] [place] [address] Performed By: #### 5 7021-8, 4536-7 #### [facility] CLIA [id number] [address] [place] [address] [place] MCH (RBC) [Entitic mass] 31.7 pg Normal 26.0-34.0 [facility] Comment on above: Order Comment: Speci men Type: BLOOD SPECIMEN Ordering Facility: [facility] Address: [address] [place] [address] Performed By: #### 5 7021-8, 4536-7 #### [facility] CLIA [id number] [address] [place] [address] [place] MCHC (RBC) [Mass/Vol] 33.2 g/dL Normal 30.5-36.[address] [facility] Comment on above: Order Comment: Speci men Type: BLOOD SPECIMEN Ordering Facility: [facility] Address: [address] [place] [address] Performed By: #### 5 7021-8, 4537-7 #### [facility] CLIA [id number] [address] [place] [address] [place] MCV (RBC) [Entitic vol] 95.6 fL Normal 80.0-100.0 [facility] Comment on above: Order Comment: Speci men Type: BLOOD SPECIMEN Ordering Facility: [facility] Address: [address] [place] [address] Performed By: #### 5 7021-8, 4537-7 #### [facility] CLIA [id number] [address] [place] [address] [place] Monocytes (Bld) [#/Vol] 0.75 10*3/uL Normal <0.87 [facility] Comment on above: Order Comment: Speci men Type: BLOOD SPECIMEN Ordering Facility: [facility] Address: [address] [place] [address] Performed By: #### 5 7021-8, 453-7 #### [facility] CLIA [id number] [address] [place] [address] [place] Monocytes/100 WBC (Bld) 9.9 % Normal [facility] Comment on above: Order Comment: Speci men Type: BLOOD SPECIMEN Ordering Facility: [facility] Address: [address] [place] [address] Performed By: #### 5 7021-8, 4537-7 #### [facility] CLIA [id number] [address] [place] [address] [place] Neutrophils (Bld) [#/Vol] 3.36 10*3/uL Normal 1.45-7.50 [facility] Comment on above: Order Comment: Speci men Type: BLOOD SPECIMEN Ordering Facility: [facility] Address: [address] [place] [address] Performed By: #### 5 7021-8, 4537-7 #### [facility] CLIA [id number] [address] [place] [address] [place] Neutrophils/100 WBC (Bld) 44.3 % Normal [facility] Comment on above: Order Comment: Speci men Type: BLOOD SPECIMEN Ordering Facility: [facility] Address: [address] [place] [address] Performed By: #### 5 7021-8, 4537-7 #### [facility] CLIA [id number] [address] [place] [address] [place] Nucleated RBC (Bld) [#/Vol] 10*3/uL Normal <0.01 [facility] Comment on above: Order Comment: Speci men Type: BLOOD SPECIMEN Ordering Facility: [facility] Address: [address] [place] [address] Performed By: #### 5 7021-8, 4537-7 #### [facility] CLIA [id number] [address] [place] [address] [place] Nucleated RBC/100 WBC (Bld) [Ratio] 0.0 /100 WBC Normal [facility] Comment on above: Order Comment: Speci men Type: BLOOD SPECIMEN Ordering Facility: [facility] Address: [address] [place] [address] Performed By: #### 5 7021-8, 4537-7 #### [facility] CLIA [id number] [address] [place] [address] [place] Platelet mean volume (Bld) [Entitic vol] 8.9 fL Low 9.0-12.7 [facility] Comment on above: Order Comment: Speci men Type: BLOOD SPECIMEN Ordering Facility: [facility] Address: [address] [place] [address] Performed By: #### 5 7021-8, 4537-7 #### [facility] CLIA [id number] [address] [place] [address] [place] Platelets (Bld) [#/Vol] 324 10*3/uL Normal 150-400 [facility] Comment on above: Order Comment: Speci men Type: BLOOD SPECIMEN Ordering Facility: [facility] Address: [address] [place] [address] Performed By: #### 5 7021-8, 4537-7 #### [facility] CLIA [id number] [address] [place] [address] [place] RBC (Bld) [#/Vol] 4.54 10*6/uL Normal 3.90-5.20 [facility] Comment on above: Order Comment: Speci men Type: BLOOD SPECIMEN Ordering Facility: [facility] Address: [address] [place] [address] Performed By: #### 5 7021-8, 4537-7 #### [facility] CLIA [id number] [address] [place] [address] [place] WBC (Bld) [#/Vol] 7.58 10*3/uL Normal 3.70-11.00 [facility] Comment on above: Order Comment: Speci men Type: BLOOD SPECIMEN Ordering Facility: [facility] Address: [address] [place] [address] Performed By: #### 5 7021-8, 4537-7 #### [facility] CLIA [id number] [address] [place] [address] [place] CRP SerPl-ncon 05-12-2024 CRP [Mass/Vol] mg/L Normal <0.9 [facility] Comment on above: Order Comment: Speci men Type: BLOOD SPECIMEN Ordering Facility: [facility] Address: [address] [place] [address] Performed By: #### 1 988-5 #### [facility] CLIA [id number] [address] [place] [address] [place] ESR Westergren method (Bld) [Velocity]on 05-12-2024 ESR (Bld) [Velocity] 5 mm/h Normal 0-20 [facility] Comment on above: Order Comment: Speci men Type: BLOOD SPECIMEN Ordering Facility: [facility] Address: [address] [place] [address] Performed By: #### 5 7021-8, 4537-7 #### [facility] CLIA [id number] [address] [place] [address] CNOVon 05-11-2024 CNOV Office Visit (ORTHMN ) LIZBET PADILLA ([id number]) 1955 F Date Time Provider Department 05/11/24 [...] All of this care has happened in [place] so records are limited. She moved here recently to [place], [place]. Denies any wound healing or drainage [...] Postoperative findings as described with intact hardware. Golf Player Assistant: [facility] Transcribe Date/Time: May 11 2024 3:48P Dictated by : KHANH MOSS MD This examination was interpreted and the report reviewed and electronically signed by: KHANH MOSS MD on May 11 2024 3:49PM EST [id number] Normal [facility] XR Pelvis and Hip - right AP and Lateral frogon 05-11-2024 IMPRESSION: Postoperative findings as described with intact hardware. Golf Player Assistant: [facility] Transcribe Date/Time: May 11 2024 3:48P [...] Postoperative findings as described with intact hardware. Golf Player Assistant: ALLI Transcribe Date/Time: May 11 2024 3:48P Dictated by : KHANH MOSS MD This examination was interpreted and the report reviewed and electronically signed by: KHANH MOSS MD on May 11 2024 3:49PM [facility] Radiology Study [facility]narrative[facility] - right AP and Lateral frogOrdered By: Ccf Provider on 05-11-2024 [facility] Tre 05-10-2024 CNPN Telephone (ORTHMN) LIZBET PADILLA ([id number]) 1955 F Date Time Provider Department 05/10/24 [...] 160 cm Marily Be MD Work Phone: [facility] 05-11-2024 13:43-0500 Body mass index (BMI) [Ratio] 19.49 kg/m2 Marily Be MD Work Phone: [facility] 05-11-2024 13:43-0500 Body weight 49.9 kg Marily Be MD Work Phone: [facility] Encounters Encounter Date Encounter Type Care Provider Facility Start: 05-13-2025 ambulatory [facility] Facilit y:[facility] Start: 05-02-2025 ambulatory [facility] Facility:[facility] Start: 04-29-2025 Encounter for genera l adult medical examination without abnormal findings [facility] Start: 04-25-2025 End: 04-25-2025 ambulatory [facility] Facility:[facility] Start: 04-25-2025 End: 04-25-2025 ambulatory [facility] Facility:[facility] Start: 04-15-2025 End: 04-15-2025 ambulatory [facility] Facility:[facility] Start: 04-07-2025 End: 04-07-2025 ambulatory [facility] Facility:[facility] Start: 09-28-2024 End: 09-28-2024 ambulatory MARILY BE Facility:[facility] Start: 09-28-2024 End: 09-28-2024 Home visit est pt low-mod severity 25 minutes Marily Be MD Work Phone: Orthopaedics Comment on above: Status post right hi p replacement (Primary Dx); Primary osteoarthritis of right hip Start: 09-28-2024 End: 09-28-2024 Subsequent hospital visit by physician Brijesh Gilman [facility] Work Phone: Radiology Comment on above: Status post right hi p replacement [Z96.641] Start: 06-11-2024 End: 06-11-2024 Telephone encounter Marily Be MD Work Phone: [facility] [place] Comment on above: HANDICAP RX MAILED Start: [...] Start: 06-01-2024 End: 06-01-2024 ambulatory MARILY BE Facility:[facility] Start: 06-01-2024 End: 06-01-2024 Subsequent hospital visit by physician [facility] Work Phone: Radiology Comment on above: 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] Start: 05-25-2024 ambulatory UNKNOWN PROVIDER Facili ty:[facility] Start: 05-25-2024 End: 05-25-2024 Subsequent hospital visit by physician [facility] Work Phone: Molecular Imaging Comment on above: Stress fracture of s haft of right femur, initial encounter [M84.351A] Start: 05-25-2024 ambulatory UNKNOWN PROVIDER Facili ty:[facility] Start: 05-25-2024 End: 05-25-2024 Subsequent hospital visit by physician [facility] Work Phone: Molecular Imaging Comment on above: Stress fracture of s haft of right femur, initial encounter [M84.351A] Start: 05-15-2024 End: 05-15-2024 Emergency department patient visit No Primary Care Physician Facility:[facility] Start: 05-13-2024 End: 05-13-2024 Orders Only Marily Be MD Work Phone: Orthopaedics Comment on above: Stress fracture of s haft of right femur, initial encounter (Primary Dx) Start: 05-12-2024 End: 05-12-2024 ambulatory MARILY BE Facility:[facility] Start: 05-11-2024 End: 05-11-2024 Subsequent hospital visit by physician [facility] Comment on above: Status post right hi p replacement [Z96.641] Start: 05-11-2024 End: 05-11-2024 ambulatory MARILY BE Facility:[facility] Start: 05-11-2024 End: 05-11-2024 Office outpatient [...] hip unilateral with pelvis 2-3 views Gregg Wright PA-C Work Phone: Start: 06-01-2024 Radex hip [...] Author Start: 01-25-2029 Lipid panel Lipid Screening [facility] Start: 2028 RSV Vaccine (1 - 1-d ose 75+ series) RSV Vaccine (1 - 1-dose 75+ series) [facility] Start: 01-25-2027 Diabetes Screening Diabetes Screenin g [facility] Start: 08-13-2024 End: 08-13-2024 Patient encounter procedure 08/13/2024 1:00 PM EST Office Visit Family Practice [address] [place] [address] Abdi Mclean MD [address] [place] [address] establishing a primary care doctor Family Practice Comment on above: establishing a prima ry care doctor Start: 07-20-2024 End: 07-20-2024 Patient encounter procedure 07/20/2024 1:00 PM EST Office Visit Family Practice [address] [place] [address] Abdi Mclean MD [address] [place] [address] [place] [address] establishing a primary care doctor Family Practice Comment on above: establishing a prima ry care doctor Start: 06-23-2024 Advance Directive Discussion Advance Directive Discussion [facility] Start: 05-12-2024 End: 05-12-2024 ambulatory 05/12/2024 2:45 PM EST Results Only [facility] [address] [place] [address] [facility] Start: 05-11-2024 End: 08-10-2024 C reactive protein [Mass/volume] in Serum or Plasma C-REACTIVE PROTEIN Lab Routine Status post right hip replacement Expected: 05/11/2024, Expires: 08/10/2024 [facility] Comment on above: Expected: 05/11/2024 , Expires: 08/10/2024 Start: 05-11-2024 End: 08-10-2024 CBC W Auto Differential panel - Blood COMPLETE BLOOD COUNT AND DIFFERENTIAL Lab Routine Status post right hip replacement Expected: 05/11/2024, Expires: 08/10/2024 [facility] Comment on above: Expected: 05/11/2024 , Expires: 08/10/2024 Start: 05-11-2024 End: 08-10-2024 Erythrocyte sedimentation rate SEDIMENTATION RATE, WESTERGREN Lab Routine Status post right hip replacement Expected: 05/11/2024, Expires: 08/10/2024 [facility] Comment on above: Expected: 05/11/2024 , Expires: 08/10/2024 Start: 05-11-2024 End: 05-11-2024 Patient encounter procedure 05/11/2024 2:00 PM EST Office Visit Orthopaedics [address] [address] [place] [address] [place], [place] [id number] Unconfirmed reason for level 7 pain, 6 [...] Vaccine ( season) Covid-19 Vaccine ( season) [facility] Start: 02-22-2024 Covid-19 Vaccine ( season) Covid-19 Vaccine ( season) [facility] Start: 02-22-2024 Influenza vaccination Influenza Vacc ine (#1) [facility] Start: 06-23-2023 Advance Directive Discussion Advance Directive Discussion [facility] Start: 03-17-2020 Pneumococcal Vaccine : 50+ (2 of 2 - PCV) Pneumococcal Vaccine: 50+ (2 of 2 - PCV) [facility] Start: 03-17-2020 Pneumococcal Vaccine : 65+ (2 of 2 - PCV) Pneumococcal Vaccine: 65+ (2 of 2 - PCV) [facility] Start: 2018 Pneumococcal Vaccine : 65+ (1 of 1 - PCV) Pneumococcal Vaccine: 65+ (1 of 1 - PCV) [facility] Start: 2018 Screening for osteoporosis Bone Density Screening [facility] Start: 10-07-2003 Shingrix Vaccine (1 of 2) Shingrix Vaccine (1 of 2) [facility] Start: 1998 Diabetes Screening Diabetes Screenin g [facility] Start: 1998 Lipid panel Lipid Screening [facility] Start: 1998 Screening for malign ant neoplasm of colon [facility] Start: 1993 Screening for malign ant neoplasm of breast Mammogram Screening [facility] Start: 1972 Urine microalbumin profile DTaP,Tdap,Td Vaccine (1 - Tdap) [facility] Start: 10-07-1971 Anxiety Screening Anxiety Screening [facility] Start: 10-07-1971 Depression Screening Depression Scre ening [facility] Start: 10-07-1971 Hepatitis C screening Hepatitis C Sc reening [facility] End: 06-12-2025 NM Bone 3 Phase Views NM BONE 3 PHASE Radiology Routine Stress fracture of shaft of right femur, initial encounter 1 Occurrences starting 05/13/2024 until 06/12/[address] [facility] Work Phone: Comment on above: 1 Occurrences starti ng 05/13/2024 until 06/12/2025 End: 06-10-2025 XR Femur - right AP and Lateral XR FEMUR GENERAL 2V AP/LAT RIGHT Radiology Routine Status post right hip replacement S/P hardware removal 1 Occurrences starting 05/11/2024 until 06/10/[address] [facility] Work Phone: Comment on above: 1 Occurrences starti ng 05/11/2024 until 06/10/2025 Immunizations Immunization Date Immunization Notes [facility] influenza virus vacc ine, unspecified formulation Marily Be MD Work Phone: [facility] Payers Date Payer Category Payer Self-pay 2018 Private Health Insurance MILI MOISÉS [id number] 2018 Unknown [employer] [id number] 2018-Present [phone] [address] [place] [address] Indemnity [id number] 2018 Unknown [id number] 2018 Medicare [id number] 2018 Medicare [id number] Unknown [id number] Unknown [id number] Unknown [id number] .2.462 Unknown [id number] .[id number] Unknown [id number] .2.462 Unknown [id number] .2.462 Unknown [id number] .2.462 Social History Date Type Detail Facility Tobacco smoking stat [facility] Tobacco smoking consumption unknown [facility] Start: 1955 Sex assigned at Not on file [facility] Start: 05-11-2024 End: 05-25-2024 Gender identity Not on file [facility] Start: 05-11-2024 Tobacco smoking stat [facility] Ex-smoker [facility] Start: 10[birth year]1967 End: 07-02-2023 History of tobacco use Current smoker [facility] Start: 10-22-1969 End: 07-02-2023 History of tobacco use Cigarette Smoker [facility] Start: 05-11-2024 End: 05-25-2024 Cigarettes smoked current (pack per day) - Reported 0.3 [facility] Start: 05-11-2024 Tobacco use and exposure Smokeless tobacco non-user [facility] Start: 05-11-2024 Alcoholic beverage intake Current drinker of alcohol (finding) [facility] National Score (1-100), lower number is lower risk 35 [facility] Start: 1955 Sex assigned at Female [facility] Start: 05-11-2024 Gender identity Identifies as female gender (finding) [facility] Start: 05-11-2024 Sexual orientation Heterosexual (fin ding) [facility] NEGATED: Highlighted rowStart: NINF History of tobacco use Passive smoker [facility] Clinical Notes 05-10-2024 to 09-28-2024 Kelsi Alaniz [...] PATIENT PRESENTS WITH AN IMPLANTABLE OR ATTACHED SUPERVISOR BOILERMAKING SHOP: No RADIOLOGY DEPARTMENT: General X-ray: Exam(s) Completed: Pelvis X-Ray: Pelvis with Hip Right PERIPHERAL IV DATA: Not applicable SIGNED BY: RT Femi(R) September 28, 2024 2:57 PM documented in this encounter [facility] 09-28-2024 Note HNO ID: [id number] Author: KELSI ALANIZ RT(R) Service: Radiology Author [...] PATIENT PRESENTS WITH AN IMPLANTABLE OR ATTACHED SUPERVISOR BOILERMAKING SHOP: No RADIOLOGY DEPARTMENT: General X-ray: Exam(s) Completed: Pelvis X-Ray: Pelvis with Hip Right PERIPHERAL IV DATA: Not applicable SIGNED BY: RT Femi(R) September 28, 2024 2:57 PM [facility] 09-28-2024 Note HNO ID: [id number] Author: MARILY BE MD Service: ? Author [...] TIME: 11:11 AM documented in this encounter [facility] 06-11-2024 Telephone encounter Note HANDICAP RX PLACED IN OUT GOING MAIL. ALSO SENT MESSAGE WITH ATTACHED RX VIA MY CHART. [facility] 06-11-2024 Miscellaneous Notes HANDICAP RX PLACED IN OUT GOING MAIL. ALSO SENT MESSAGE WITH ATTACHED RX VIA MY CHART. documented in this encounter [facility] 06-10-[address] Be approved placard for Lizbet Ruthall. RN instructed to sign order for Dr. Be. [facility] 06-10-[address] Be approved placard for Lizbet Padilla. RN instructed to sign order for Dr. Be. documented in this encounter [facility] 06-01-2024 Note HNO ID: [id number] Author: MARILY BE MD Service: ? Author [...] TIME: 11:11 AM documented in this encounter [facility] 05-25-2024 History of Presen t illness Narrative [...] PATIENT PRESENTS WITH AN IMPLANTABLE OR ATTACHED SUPERVISOR BOILERMAKING SHOP: No CREATININE: No results found for: CREAT, [...] safety can be found using this link: [email or web address] uclear%[email or web address] df SIGNATURE: JEFFERSON Rod PATIENT NAME: Lizbet Padilla DATE: May 25, 2024 TIME: 12:21 PM PAGER/CONTACT #: documented in this encounter [facility] 05-25-2024 Note HNO ID: [id number] Author: MARILY MOSQUERA CT Service: Nuclear Medicine [...] PATIENT PRESENTS WITH AN IMPLANTABLE OR ATTACHED SUPERVISOR BOILERMAKING SHOP: No CREATININE: No results found for: CREAT, EGFROTH, EGFRAA P.O.C.T. RESULTS: N/A May 25, [address] PERFORMED: No IV SITE: Ambulatory: NM only - direct IV injection in the Right antecubital site POST EXAM PIV STATUS: Not applicable PROCEDURE TYPE: NM INJECT: bone flow. 21.9 mCi Tc99m MDP. No other medications given.. ADMINISTRATION TIME: 11:09 PATIENT DISCHARGED TO: Ambulatory patient, left AR department area. Is this a therapy: No A Diagnostic radioactive procedure has taken place, with no further precautions necessary other than routine body substance precautions. More information regarding radiation safety can be found using this link: [email or web address] [email or web address] 20Diagnostic%20Nuclear%20Medicin e%[email or web address] SIGNATURE: JEFFERSON Rod PATIENT NAME: Lizbet Padilla DATE: May 25, 2024 TIME: 12:21 PM PAGER/CONTACT #: [facility] 05-11-2024 History of Presen t illness [...] PATIENT PRESENTS WITH AN IMPLANTABLE OR ATTACHED SUPERVISOR BOILERMAKING SHOP: No RADIOLOGY DEPARTMENT: General X-ray: Exam(s) Completed: Pelvis X-Ray: Pelvis with Hip Right PERIPHERAL IV DATA: Not applicable SIGNED BY: RT Shaniqua(Carlos A) May 11, 2024 2:55 PM documented in this encounter [facility] 05-11-2024 Note HNO ID: [id number] Author: CHAYO VOGEL RT(R) Service: ? Author [...] PATIENT PRESENTS WITH AN IMPLANTABLE OR ATTACHED SUPERVISOR BOILERMAKING SHOP: No RADIOLOGY DEPARTMENT: General X-ray: Exam(s) Completed: Pelvis X-Ray: Pelvis with Hip Right PERIPHERAL IV DATA: Not applicable SIGNED BY: Chayo Vogel, RT(R) May 11, 2024 2:55 PM [facility] 05-11-2024 Note HNO ID: [id number] Author: MARILY BE MD Service: ? Author [...] All of this care has happened in [place] so records are limited. She moved here recently to [place], [place]. Denies any wound healing or drainage [...] All of this care has happened in [place] so records are limited. She moved here recently to [place], [place]. Denies any wound healing or drainage [...] years ago. She recently moved here from [facility], where she had her ORIF and RTHA. [...] TIME: 1:40 PM documented in this encounter [facility] 05-10-2024 Telephone encounter Note Called patient regarding upcoming appt tomorrow with Dr. Be. Her imaging in within 6 months and OP notes are on the media she's bringing in. [facility] 05-10-2024 Miscellaneous Notes Called patient regarding upcoming appt tomorrow with Dr. Be. Her imaging in within 6 months and OP notes are on the media she's bringing in. documented in this encounter [facility] Evaluation note Diagnosis Status post right hip replacement- Primary Hip joint replacement by other means S/P hardware removal Other postprocedural status Pain of right hip Status post right hip replacement Hip joint replacement by other means Pain of right hip [facility] Status post right hip replacement Hip joint replacement by other means Pain of right hip [facility] Diagnosis Stress fracture of shaft of right femur, initial encounter- Primary [facility] Stress fracture of shaft of right femur, initial encounter [facility] Diagnosis Status post right hip replacement- Primary Hip joint replacement by other means Pain of right hip [facility] Diagnosis 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) [facility] Diagnosis Pain in right hip- Primary Pain in joint, pelvic region and thigh documented in this encounter [facility] note* Diagnosis Status post right hip replacement- Primary Hip joint replacement by other means Primary osteoarthritis of right hip Primary localized osteoarthrosis, pelvic region and thigh Status post right hip replacement Hip joint replacement by other means documented in this encounter [facility] note* Diagnosis Status post right hip replacement Hip joint replacement by other means documented in this encounter [facility] for referral (narrative)* Diagnostic Procedure Only (Routine) - New Request Specialty Diagnoses / Procedures Referred By Brian t Referred To Contact XR IMAGING Diagnoses Status post right hip replacement S/P hardware removal Procedures XR FEMUR GENERAL 2V AP/LAT RIGHT RADIOLOGIC EXAMINATION FEMUR MINIMUM 2 [place] [address] [place] [address] X[facility] [place] [address] Referral ID Status Reason Start Date Expiration Date Visits Requested Visits Authorized [id number] New Request Auto-Generat ed Referral 06/10/2025 1 1 * Diagnostic Procedure Only (Routine) - Closed Specialty Diagnoses / Procedures Referred By Brian white Referred To Contact XR IMAGING Diagnoses Status post right hip replacement Pain of right hip Procedures XR HIP GENERAL 3V PELV/AP/LAT RIGHT RADEX HIP UNILATERAL WITH PELVIS 2-[place] [address] [place] [address] Xr Imaging [id number] Referral ID Status Reason Start Date Expiration Date V isits Requested Visits Authorized [id number] Closed Auto-Generate d Referral 05/11/2024 06/10/2025 1 1 [facility] for referral (narrative)* Diagnostic Procedure Only (Routine) - Closed Specialty Diagnoses / Procedures Referred By Brian white Referred To Contact XR IMAGING Diagnoses Status post right hip replacement Pain of right hip Procedures XR HIP GENERAL 3V PELV/AP/LAT RIGHT RADEX HIP UNILATERAL WITH PELVIS 2-[place] [address] [place] [address] [place] [address] Referral ID Status Reason Start Date Expiration Date V isits Requested Visits Authorized [id number] Closed Auto-Generate d Referral 05/11/2024 06/10/2025 1 1 [facility] for referral (narrative)* Diagnostic Procedure Only (Routine) - New Request Specialty Diagnoses / Procedures Referred By Contac t Referred To Contact MOLECULAR & FUNCTIONAL IMAGING Diagnoses Stress fracture of shaft of right femur, initial encounter Procedures NM BONE 3 PHASE BONE &/JOINT IMAGING 3 [place] [address] [place] [id number] [facility] [address] [place] [address] Referral ID Status Reason Start Date Expiration Date Visits Requested Visits Authorized [id number] New Request Auto-Generat ed Referral 06/12/2025 1 1 [facility] for referral (narrative)* Diagnostic Procedure Only (Routine) - Closed Specialty Diagnoses / Procedures Referred By Contac t Referred To Contact MOLECULAR & FUNCTIONAL IMAGING Diagnoses Stress fracture of shaft of right femur, initial encounter Procedures NM BONE 3 PHASE BONE &/JOINT IMAGING 3 [place] [address] [place] [address] Molecular [facility] Functional Imaging [address] [place], [place] [id number] Referral ID Status Reason Start Date Expiration Date V isits Requested Visits Authorized [id number] Closed Auto-Generate d Referral 05/13/2024 06/12/2025 1 1 [facility] for referral (narrative)* Diagnostic Procedure Only (Routine) - Closed Specialty Diagnoses / Procedures Referred By Contac t Referred To Contact XR IMAGING Diagnoses 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) Procedures XR HIP GENERAL 3V PELV/AP/LAT RIGHT RADEX HIP UNILATERAL WITH PELVIS 2-3 VIEWS Gregg Willard PA-C [address] [place] [phone] X[facility] [place] [address] Referral ID Status Reason Start Date Expiration Date V isits Requested Visits Authorized [id number] Closed Auto-Generate d Referral 05/28/2024 06/27/2025 1 1 [facility] for visit Narrative* Diagnostic Procedure Only (Routine) - Closed Specialty Diagnoses / Procedures Referred By Contac t Referred To Contact MOLECULAR & FUNCTIONAL IMAGING Diagnoses Stress fracture of shaft of right femur, initial encounter Procedures NM BONE 3 PHASE BONE &/JOINT IMAGING 3 [place] [address] [place] [id number] [facility] [address] [place] [address] Referral ID Status Reason Start Date Expiration Date V isits Requested Visits Authorized [id number] Closed Auto-Generate d Referral 05/13/2024 06/12/2025 1 1 [facility] Summary Purpose Family History No Family History [...] HIGH COMPLEX 45 [place] [address] [place] [phone] [facility] [place] [address] [phone] Referral ID Status Reason Start Date Expiration Date Visits Requested Visits Authorized [id number] Authorized PCP Requested Referral Auto-Generate d Referral 06/01/2025 99 99 Additional Source Comments Source Comments (unrecognize d section and content) In the event this informatio n is protected by the Federal Confidentiality of Alcohol and Drug Abuse Patient Records regulations: The Federal rules restrict any use of the information to criminally investigate or prosecute any alcohol or drug abuse patient.[facility] the event this information is protected by the Federal Confidentiality of Alcohol and Drug Abuse Patient Records regulations: The Federal rules restrict any use of the information to criminally investigate or prosecute any alcohol or drug abuse patient.[facility] the event this information is protected by the Federal Confidentiality of Alcohol and Drug Abuse Patient Records regulations: The Federal rules restrict any use of the information to criminally investigate or prosecute any alcohol or drug abuse patient.[facility] the event this information is protected by the Federal Confidentiality of Alcohol and Drug Abuse Patient Records regulations: The Federal rules restrict any use of the information to criminally investigate or prosecute any alcohol or drug abuse patient.[facility] the event this information is protected by the Federal Confidentiality of Alcohol and Drug Abuse Patient Records regulations: The Federal rules restrict any use of the information to criminally investigate or prosecute any alcohol or drug abuse patient.[facility] the event this information is protected by the Federal Confidentiality of Alcohol and Drug Abuse Patient Records regulations: The Federal rules restrict any use of the information to criminally investigate or prosecute any alcohol or drug abuse patient.[facility] the event this information is protected by the Federal Confidentiality of Alcohol and Drug Abuse Patient Records regulations: The Federal rules restrict any use of the information to criminally investigate or prosecute any alcohol or drug abuse patient.[facility] the event this information is protected by the Federal Confidentiality of Alcohol and Drug Abuse Patient Records regulations: The Federal rules restrict any use of the information to criminally investigate or prosecute any alcohol or drug abuse patient.[facility] the event this information is protected by the Federal Confidentiality of Alcohol and Drug Abuse Patient Records regulations: The Federal rules restrict any use of the information to criminally investigate or prosecute any alcohol or drug abuse patient.[facility] the event this information is protected by the Federal Confidentiality of Alcohol and Drug Abuse Patient Records regulations: The Federal rules restrict any use of the information to criminally investigate or prosecute any alcohol or drug abuse patient.[facility] the event this information is protected by the Federal Confidentiality of Alcohol and Drug Abuse Patient Records regulations: The Federal rules restrict any use of the information to criminally investigate or prosecute any alcohol or drug abuse patient.[facility] the event this information is protected by the Federal Confidentiality of Alcohol and Drug Abuse Patient Records regulations: The Federal rules restrict any use of the information to criminally investigate or prosecute any alcohol or drug abuse patient.[facility] Reason for Visit (unrecogniz ed section and content) Reason Comments Appointment Reason Comments New Patient Pain Reason Comments Radio Gen A21 Specialty Diagnoses / Procedures Referred By Contac t Referred To Contact XR IMAGING Diagnoses Status post right hip replacement Pain of right hip Procedures XR HIP GENERAL 3V PELV/AP/LAT RIGHT RADEX HIP UNILATERAL WITH PELVIS 2-[place] [address] [place] [address] [place] [address] Referral ID Status Reason Start Date Expiration Date V isits Requested Visits Authorized [id number] Closed Auto-Generate d Referral 05/11/2024 06/10/2025 1 1 Reason Comments New Reason Comments Radiology XR Specialty Diagnoses / Procedures Referred By Contac t Referred To Contact XR IMAGING Diagnoses 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) Procedures XR HIP GENERAL 3V PELV/AP/LAT RIGHT RADEX HIP UNILATERAL WITH PELVIS 2-3 VIEWS Gregg Willard PA-C [address] [place] [phone] [place] [address] Referral ID Status Reason Start Date Expiration Date V isits Requested Visits Authorized [id number] Closed Auto-Generate d Referral 05/28/2024 06/27/2025 1 1 Reason Comments HANDICAP RX MAILED Reason Comments Follow Up Specialty Diagnoses / Procedures Referred By Contac t Referred To Contact XR IMAGING Diagnoses Status post right hip replacement Procedures XR HIP GENERAL 3V PELV/AP/LAT RIGHT RADEX HIP UNILATERAL WITH PELVIS 2-3 VIEWS Gregg Willard PA-C [address] [address] Phone: tel: fax: [place] [address] Referral ID Status Reason Start Date Expiration Date V isits Requested Visits Authorized [id number] Closed Auto-Generate d Referral 09/27/2024 10/27/2025 1 1 Care Teams (unrecognized sec tion and content) Clay Maker Relationship Specialty Start Date End Date Lavern Malcolm [address] [place] [address] Referring Internal Medicine 03/19/24 Clay Maker Relationship Specialty Start Date End Date Malcolm Lavern Ahsan [address] [place] [address] Referring Internal Medicine 03/19/24 Clay Maker Relationship Specialty Start Date End Date Malcolm Lavern Ahsan [address] [place] [address] Referring Internal Medicine 03/19/24 Clay Maker Relationship Specialty Start Date End Date Malcolm Lavern Ahsan [address] [place] [address] Referring Internal Medicine 03/19/24 Clay Maker Relationship Specialty Start Date End Date MalcolmIleana zepedaa Ahsan [address] [place] [address] Referring Internal Medicine 03/19/24 Clay Maker Relationship Specialty Start Date End Date Lavern Malcolm Ahsan [address] [place] [address] Referring Internal Medicine 03/19/24 Clay Maker Relationship Specialty Start Date End Date Malcolm, Lavern Ahsan [address] [place] [address] Referring Internal Medicine 03/19/24 Clay Maker Relationship Specialty Start Date End Date Gold Lavern Ahsan [address] [place] [address] Referring Internal Medicine 03/19/24 INFORMATION SOURCE (unrecogn ized section and content) DATE CREATED AUTHOR 05/27/2024 [facility] DATE CREATED AUTHOR AUTHOR'S ORGANIZ ATION 10/13/2024 [facility] DATE CREATED AUTHOR AUTHOR'S ORGANIZ ATION 05/05/2025 [facility] FOR RECORDS PERTAINING TO PATIENTS WHO ARE [...] BE BASED ON THE PRIMARY CLINICAL RECORDS. [facility]. provides no warranty or guarantee of the accuracy or completeness of information in this document.
== END | disposition home or self-care (01) ==
LOC: RAD 13:39
PROVIDERS: PCP Family Medicine; Referring Provider Internal Medicine Medical Oncology; Visit Provider Internal Medicine Medical Oncology
DX: C50.912 Malignant neoplasm of unspecified site of left female breast (principal)
CPT/HCPCS: 71046